=== PATIENT | male | born 1980 | race Caucasian/White ===

== ENCOUNTER 2019-06-19 12:09 | Inpatient (IN) | payer OTHER ==
[~2019-06-19] VITALS: Ht 165.1 cm; Wt 83.4 kg
[2019-06-19] MEDS ORDERED: MORPHINE 2 MG/ML 1ML VIAL (J2270) IV ONE ×2 (12:45→13:15)
[2019-06-19] MEDS ORDERED: ONDANSETRON 4MG/2ML VIAL (J2405) IV ONE (12:45)
[2019-06-19] MEDS ORDERED: NS 1,000 ML IV ONE ×2 (12:45→14:30)
[2019-06-19] MEDS ORDERED: KETOROLAC 30 MG/ML VIAL (J1885) IV ONE (12:45)
[2019-06-19 12:54] LABS: BASO % 0.2 % (0.0-1.0); EOS # 0.1 10^3/uL (0.0-0.5); EOS % 0.7 % (0.0-3.0); HEMATOCRIT 39.3 % (42.0-52.0); HEMOGLOBIN 13.7 g/dl (13.5-17.5); LYMPH # 0.9 10^3/uL (1.5-5.0); LYMPH % 8.1 % (24.0-44.0); MEAN CORPUSCULAR HEMOGLOBIN 29.6 pg (27.0-33.0); MEAN CORPUSCULAR HGB CONC 34.9 g/dl (32.0-36.5); MEAN CORPUSCULAR VOLUME 84.9 fl (80.0-96.0); MONO # 0.8 10^3/uL (0.0-0.8); MONO % 7.8 % (0.0-5.0); NEUTROPHILS # 8.9 10^3/uL (1.5-8.5); NEUTROPHILS % 82.7 % (36.0-66.0); PLATELET COUNT, AUTOMATED 188 10^3/uL (150-450); RED BLOOD COUNT 4.63 10^6/uL (4.30-6.10); WHITE BLOOD COUNT 10.7 10^3/uL (4.0-10.0)
[2019-06-19 13:23] LABS: INFLUENZA A AMPLIFICATION NEGATIVE (NEGATIVE); INFLUENZA B AMPLIFICATION NEGATIVE (NEGATIVE)
[2019-06-19 13:24] LABS: ALBUMIN 4.2 GM/DL (3.2-5.2); ALT/SGPT 28 U/L (12-78); AMYLASE 538 U/L (25-115); BILIRUBIN,DIRECT 0.1 MG/DL (0.0-0.2); BILIRUBIN,TOTAL 0.7 MG/DL (0.2-1.0); BLOOD UREA NITROGEN 16 MG/DL (7-18); CALCIUM LEVEL 9.2 MG/DL (8.5-10.1); CARBON DIOXIDE LEVEL 23 MEQ/L (21-32); CHLORIDE LEVEL 104 MEQ/L (98-107); CREATININE FOR GFR 0.84 MG/DL (0.70-1.30); GLOMERULAR FILTRATION RATE > 60.0 (>60); GLUCOSE, FASTING 105 MG/DL (70-100); LIPASE 9893 U/L (73-393); SODIUM LEVEL 136 MEQ/L (136-145); TOTAL PROTEIN 7.1 GM/DL (6.4-8.2)
[2019-06-19] MEDS ORDERED: fentaNYL 100 MCG/2 ML INJECTION (J3010) IV ONE (13:45)
[2019-06-19] MEDS ORDERED: MORPHINE 4 MG/ML 1ML VIAL/SYRINGE (J2270) IV ONE (14:15)
[2019-06-19] MEDS ORDERED: ISOVUE-370 76% 100ML VIAL (Q9967) As Ordered ONE (14:17)
--- NOTE | 2019-06-19 14:48 | REP ---
Clinical: Acute left upper quadrant pain. Pancreatitis. Technique: Axial contrast enhanced images from the lung bases to the pubic symphysis using 100 ml Isovue 370 intravenous contrast material with coronal and sagittal re-formations. Comparison: None. Findings: Peripancreatic inflammatory changes and peripancreatic/mesenteric adenopathy along with the inflammatory changes surrounding the crossing duodenum is compatible with acute pancreatitis and secondary duodenitis. No significant ascites, drainable collection or abscess. Liver, spleen, gallbladder, bilateral adrenal glands and kidneys are normal. No evidence for bowel obstruction. Scattered colonic diverticula noted without acute diverticulitis. Pelvis demonstrates normal bladder and age appropriate prostate/seminal vesicles. Small fat containing left inguinal hernia noted. Trace pelvic fluid consistent with the above pancreatitis. Abdominal aorta and vasculature appears normal. Musculoskeletal structures are intact. Lung bases are clear. Impression: Acute pancreatitis and possible secondary duodenitis. No drainable collection/abscess. No bowel obstruction. No free air. Electronically Signed by River Davalos MD 06/19/2019 02:39 P
[2019-06-19] MEDS ORDERED: NORCO, ANEXSIA 5/325MG TABLET (HYDROcodone/ACETAMINOPHEN) PO ONE (15:15)
[2019-06-19] MEDS ORDERED: IBUP200C28 PO (15:30)
[2019-06-19] MEDS ORDERED: ACET-897 PO (15:30)
[2019-06-19 15:34] LABS: CHOLESTEROL LEVEL 183 MG/DL (<200); CHOLESTEROL RISK RATIO 1.848 (<5); HDL CHOLESTEROL 99 MG/DL (>40); LDL CHOLESTEROL 54 MG/DL (<100); NON-HDL-C 84 MG/DL; TRIGLYCERIDES LEVEL 148 MG/DL (<150)
[2019-06-19 15:35] LABS: ETHYL ALCOHOL (ETHANOL) < 0.003 % (0.000-0.010)
[2019-06-19] MEDS ORDERED: ONDANSETRON 4MG/2ML VIAL (J2405) IV PRN (16:00)
--- NOTE | 2019-06-19 16:05 | HPEPDOC ---
General Date of Admission Jun 19, 2019 at 15:43 Date of Service: Jun 19, 2019 Chief Complaint The patient is a 38-year-old male admitted with a reason for visit of Acute Pancreatitis. Source: Patient, Family Exam Limitations: No limitations Timing/Duration: Other (since last night) Severity: Severe Associated Symptoms: Nausea History of Present Illness This is 38 years old white male who recently moved to the area with past medical history of pancreatitis 2 this year developed sudden abdominal pain which is sharp, stabbing in nature, located right upper quadrant, nonradiating, as sociated with nausea, no association with food or position, not relieved with any medication exacerbated by eating since last night. Patient offers no other complaints. Denies a history of alcohol abuse. Gallstones are diabetes mellitus Home Medications Scheduled PRN Acetaminophen (Tylenol Extra Strength) 500 Mg Tablet, 1,000 MG PO Q8H PRN for PAIN / FEVER, (Reported) Ibuprofen (Ibuprofen) 200 Mg Capsule, 1,000 MG PO Q8H PRN for PAIN, (Reported) Allergies Coded Allergies: Penicillins (Verified Allergy, Unknown, swelling, 06/19/19) Past Medical History Medical History Pancreatitis 2 Surgical History Left ankle surgery and vasectomy Family History Significant Family History: No pertinent family hx Social History * Smoker: Denies Alcohol: Denies Drugs: denies A-FIB/CHADSVASC A-FIB History Current/History of A-Fib/PAF?: No Review of Systems Constitutional: Denies: Chills, Fever, Malaise, Night Sweats, Weakness, F atigue, Weight Loss, Lethargy, Other Eyes: Denies: Pain, Vision change, Conjunctivae inflammation, Eyelid inflammation, Redness, Other ENT: Denies: Head Aches, Ear Pain, Dysphagia, Sinus Congestion, Post Nasal Drip, Sore Throat, Epistaxis, Other Symptoms Skin: Denies: Rash, Lesions, Jaundice, Bruising, Itching, Dry, Breakdown, Nail Changes, Other Cardiovascular: Denies: Chest Pain, Palpitations, Orthopnea, Paroxysmal Noc. Dyspnea, Edema, Lt Headedness, Other Symptoms Gastrointestinal: Reports: Nausea Genitourinary: Denies: Dysuria, Frequency, Incontinence, Hematuria, Retention, Other Symptoms Hematologic: Denies: Bruising, Bleeding Excessively, Petecchia, Purpura, Enlarged Lymph Nodes, Other Hematologic Endocrine: Denies: Polydipsia, Polyphagia, Polyuria, Heat Intolerance, Cold Intolerance, Other Endocrine Sx Musculoskeletal: Denies: Neck Pain, Back Pain, Shoulder Pain, Arm Pain, Hand Pain, Leg Pain, Foot Pain, Joint Pain, Muscle Pain, Spasms, Other Symptoms Neurological: Denies: Weakness, Numbness, Incoordination, Change in speech, Confusion, Seizures, Other Symptoms Psych: Denies: Mood Normal, Anxiety, Depression, Memory Issues, Thoughts of Self Harm, Anger, Thoughts of Harming Other, Other Psych Physical Examination General Exam: Positive: Alert, Cooperative Eye Exam: Positive: PERRLA, Conjunctiva & lids normal ENT Exam: Positive: Atraumatic Neck Exam: Positive: Supple Chest Exam: Positive: Clear to auscultation, Normal air movement Heart Exam: Positive: Rate Normal, Normal S1, Normal S2 Abdomen Exam: Positive: BS Hypoactive, Soft, Tenderness (. Positive tenderness all over the abdomen but mostly on the right upper quadrant on palpation) Extremity Exam: Positive: Normal pulses Skin Exam: Positive: Nl turgor and temperature Neuro Exam: Positive: Strength at 5/5 X4 ext, Sensation Intact, Cranial Nerves 3-12 NL Psych Exam: Positive: Mood NL, Oriented x 3 Vital Signs Vital Signs Date Time Temp Pulse Resp B/P (MAP) Pulse Ox O2 Delivery O2 Flow Rate FiO2 06/19/19 15:14 20 Room Air 06/19/19 14:13 97.8 43 153/70 (97) 100 Laboratory Data Labs 24H Laboratory Tests 2 06/19/19 12:40: Immature Granulocyte % (Auto) 0.5, Neutrophils (%) (Auto) 82.7H, Lymphocytes (%) (Auto) 8.1L, Monocytes (%) (Auto) 7.8H, Eosinophils (%) (Auto) 0.7, Basophils (%) (Auto) 0.2, Neutrophils # (Auto) 8.9H, Lymphocytes # (Auto) 0.9L, Monocytes # (Auto) 0.8, Eosinophils # (Auto) 0.1, Basophils # (Auto) 0.0, Nucleated Red Blood Cells % (auto) 0.0 06/19/19 12:41: Anion Gap 9, Glomerular Filtration Rate > 60.0, Calcium Level 9.2, Total Bilirubin 0.7, Direct Bilirubin 0.1, Aspartate Amino Transf (AST/SGOT) 32, Alanine Aminotransferase (ALT/SGPT) 28, Alkaline Phosphatase 69, Total Protein 7.1, Albumin 4.2, Albumin/Globulin Ratio 1.45, Triglycerides Level 148, Total Cholesterol 183, LDL Cholesterol 54, Non-HDL Cholesterol (LDL + VLDL) 84, Total HDL Cholesterol 99, Cholesterol/HDL Ratio 1.848, Amylase Level 538H, Lipase 9893H, Ethyl Alcohol Level < 0.003 06/19/19 12:44: Influenza Type A (RT-PCR) NEGATIVE, Influenza Type B (RT-PCR) NEGATIVE CBC/BMP Laboratory Tests 06/19/19 12:40 06/19/19 12:41 Problems (1) Acute pancreatitis Problem Text: 38 years old white male with past medical history of pancreatitis 2 in the last 6 months, came back again with chief complaints of abdominal pain since last night. His heart rate is 43, respiratory rate of 20, blood pressure 1 5370, temperature 97.8, CT abdomen and pelvis consistent with acute pancreatitis and duodenitis. WBC count 10.7, hemoglobin 13.7, platelets 188. Electrolytes are normal with BUN 16, creatinine 0.84, lipase is 9893. Patient already received morphine 4 mg IV, fentanyl 50 g IV, Toradol 30 mg IV in ED with mild relief in his pain. He still complains of his abdominal pain as 11/10. [facility] for 24 hours IV fluids normal saline 150 mL per hour Protonix 40 mg IV every 12 hours Morphine sulfate 4 mg IV every 4 hours when necessary Zofran 4 mg IV every 4 hours when necessary Nothing by mouth except sips for bowel rest Activity as tolerated DVT prophylaxis with antithrombotic stockings Will repeat CBC, CMP, lipase in a.m. Also, will order abdominal sonogram in a.m. looking for possible gallstones, even though CAT scan did not show any gallbladder abnormality or gallstones. (2) Duodenitis Status: Acute Problem Text: Possible acute duodenitis as per CT of the abdomen, pelvis Start Protonix 40 mg IV every 12 hours Nothing by mouth the present time (3) Sinus bradycardia Status: Acute Problem Text: Patient developed sinus bradycardia with heart rate in 40s after he received multiple IV meds for pain control,. , Most likely secondary to IV, fentanyl we will avoid giving him IV fentanyl and monitor his heart rate for 24 hours Plan / VTE VTE Prophylaxis Ordered?: Yes MICHELLE MENDOZA MD Jun 19, 2019 16:05
[2019-06-19 17:56] VITALS: BP 140/66
[2019-06-19] MEDS: NS 1,000 ML IV SCH (18:20)
[2019-06-19] MEDS: MORPHINE 4 MG/ML 1ML VIAL/SYRINGE (J2270) IV PRN ×2 (18:20→22:26)
[2019-06-19] MEDS: ACETAMINOPHEN TAB 650MG DOSE (2X325MG) PO PRN (18:42)
[2019-06-19] MEDS: KETOROLAC 30 MG/ML VIAL (J1885) IV PRN (18:42)
[2019-06-19] MEDS: PANTOPRAZOLE 40MG INJ (PROTONIX) (C9113) IV SCH (18:42)
[2019-06-19 18:57] VITALS: BP 133/71
[2019-06-19 22:00] VITALS: BP 109/68
[2019-06-19 23:55] VITALS: BP 142/72
[2019-06-20] MEDS ORDERED: ACETAMINOPHEN *IV* 1,000 MG in IV 1 EA IV ONE (00:30)
--- NOTE | 2019-06-20 00:32 | REPVR ---
PROCEDURE INFORMATION: Exam: US Abdomen Limited, Right Upper Quadrant Exam date and time: 06/19/2019 11:40 PM Age: 38 years old Clinical indication: Abnormal findings; Abnormal radiologic finding of the abdomen; Radiologic exam and body structure: CT abd pelvis - pancreatitis; Additional info: R/O gall stones TECHNIQUE: Imaging protocol: Real-time ultrasound of the abdomen with image documentation. Examination was focused on the right upper quadrant. COMPARISON: CT ABD/PEL W/IV CONTRAST ONLY 2019-06-19 14:22 FINDINGS: Liver: Normal. No masses. Gallbladder: 9.8 cm gallbladder without stones with normal wall thickness measuring 1 mm. On several of the images, the gallbladder appears artifactually thickened. Common bile duct: Normal common biliary duct measuring 5 mm. Pancreas: Swollen pancreas with ill-defined borders compatible with acute pancreatitis. Right kidney: Normal. No mass. No hydronephrosis. Intraperitoneal space: Trace fluid abutting the liver. IMPRESSION: 1. No evidence for acute cholecystitis. 2. Swollen pancreas with ill-defined borders compatible with acute pancreatitis. 3. Trace fluid abutting the liver. Electronically signed by: Parish Bennett On 06/20/2019 00:31:23 AM
[2019-06-20] MEDS: KETOROLAC 30 MG/ML VIAL (J1885) IV PRN ×4 (00:47→21:03)
[2019-06-20] MEDS: NS 1,000 ML IV SCH ×4 (00:48→21:03)
[2019-06-20] MEDS: MORPHINE 4 MG/ML 1ML VIAL/SYRINGE (J2270) IV PRN ×4 (04:56→22:20)
[2019-06-20] MEDS: PANTOPRAZOLE 40MG INJ (PROTONIX) (C9113) IV SCH ×2 (05:05→17:25)
[2019-06-20 06:00] VITALS: BP 131/66
[2019-06-20 06:57] LABS: HEMATOCRIT 34.9 % (42.0-52.0); HEMOGLOBIN 11.8 g/dl (13.5-17.5); MEAN CORPUSCULAR HEMOGLOBIN 29.3 pg (27.0-33.0); MEAN CORPUSCULAR HGB CONC 33.8 g/dl (32.0-36.5); MEAN CORPUSCULAR VOLUME 86.6 fl (80.0-96.0); PLATELET COUNT, AUTOMATED 154 10^3/uL (150-450); RED BLOOD COUNT 4.03 10^6/uL (4.30-6.10); WHITE BLOOD COUNT 11.9 10^3/uL (4.0-10.0)
[2019-06-20 07:21] LABS: ALBUMIN 3.2 GM/DL (3.2-5.2); ALT/SGPT 23 U/L (12-78); BILIRUBIN,TOTAL 0.7 MG/DL (0.2-1.0); BLOOD UREA NITROGEN 7 MG/DL (7-18); CALCIUM LEVEL 8.3 MG/DL (8.5-10.1); CARBON DIOXIDE LEVEL 22 MEQ/L (21-32); CHLORIDE LEVEL 109 MEQ/L (98-107); CREATININE FOR GFR 0.73 MG/DL (0.70-1.30); GLOMERULAR FILTRATION RATE > 60.0 (>60); GLUCOSE, FASTING 99 MG/DL (70-100); LIPASE 3171 U/L (73-393); MAGNESIUM LEVEL 1.7 MG/DL (1.8-2.4); SODIUM LEVEL 139 MEQ/L (136-145); TOTAL PROTEIN 6.3 GM/DL (6.4-8.2)
[2019-06-20] MEDS ORDERED: MAG SULF 1GM/100ML (MAG RUN) 1 GM in IV 1 EA IV ONE (08:00)
--- NOTE | 2019-06-20 11:02 | IPNPDOC ---
Subjective Date Seen The patient was seen on 06/20/19. Subjective Chief Complaint/HPI Patient's pain is slightly decreased, but he is feels much better since yesterday. Still complaining of pain at the left upper quadrant General: Denies: ROS Unobtainable, Chills, Night Sweats, Fatigue, Malaise, Normal Appetite, Other Symptoms Pulmonary: Denies: Dyspnea, Cough, Pleuritic Chest Pain, Other Symptoms Cardiovascular: Denies: Chest Pain, Palpitations, Orthopnea, Paroxysmal Noc. Dyspnea, Edema, Lt Headedness, Other Symptoms Gastrointestinal: Denies: Nausea, Vomiting, Abdominal Pain, Diarrhea, Constipation, Melena, Hematochezia, Other Symptoms Musculoskeletal: Denies: Neck Pain, Back Pain, Shoulder Pain, Arm Pain, Hand Pain, Leg Pain, Foot Pain, Joint Pain, Muscle Pain, Spasms, Other Symptoms Neurological: Denies: Weakness, Numbness, Incoordination, Change in speech, Confusion, Seizures, Other Symptoms Objective Physical Examination Neck Exam: Positive: Supple Chest Exam: Positive: Clear to auscultation, Normal air movement Heart Exam: Positive: Rate Normal, Normal S1, Normal S2 Abdomen Exam: Positive: BS Hypoactive, Soft, Tenderness (. Positive tenderness all over the abdomen but mostly on the right upper quadrant on palpation) Extremity Exam: Positive: Normal pulses Skin Exam: Positive: Nl turgor and temperature Assessment /Plan Problems (1) Acute pancreatitis Status: Acute Problem Text: Patient is feeling slightly better today. Tenderness is decreased on examination Continue IV fluids as per orders Patient's lipase is significantly decreased to 3171 will start clear liquid diet and slowly progress today as tolerated Zofran for nausea, vomiting (2) Duodenitis Status: Acute Problem Text: Continue Protonix as per orders A.m. level work (3) Sinus bradycardia Status: Resolved Problem Text: Sinus bradycardia has resolved DC radiation monitor Plan/VTE VTE Prophylaxis Ordered?: Yes VS, I&O, 24H, Fishbone Vital Signs/I&O Vital Signs Date Time Temp Pulse Resp B/P (MAP) Pulse Ox O2 Delivery O2 Flow Rate FiO2 06/20/19 10:46 19 06/20/19 10:36 60 140/77 100 Room Air 06/20/19 06:00 97.9 I&O- Last 24 Hours up to 6 AM 06/20/19 06:00 Intake Total 3000 ml Output Total 950 ml Balance 2050 ml Laboratory Data 24H LABS Laboratory Tests 2 06/19/19 12:40: Immature Granulocyte % (Auto) 0.5, Neutrophils (%) (Auto) 82.7H, Lymphocytes (%) (Auto) 8.1L, Monocytes (%) (Auto) 7.8H, Eosinophils (%) (Auto) 0.7, Basophils (%) (Auto) 0.2, Neutrophils # (Auto) 8.9H, Lymphocytes # (Auto) 0.9L, Monocytes # (Auto) 0.8, Eosinophils # (Auto) 0.1, Basophils # (Auto) 0.0, Nucleated Red Blood Cells % (auto) 0.0 06/19/19 12:41: Anion Gap 9, Glomerular Filtration Rate > 60.0, Calcium Level 9.2, Total Bilirubin 0.7, Direct Bilirubin 0.1, Aspartate Amino Transf (AST/SGOT) 32, Alanine Aminotransferase (ALT/SGPT) 28, Alkaline Phosphatase 69, Total Protein 7.1, Albumin 4.2, Albumin/Globulin Ratio 1.45, Triglycerides Level 148, Total Cholesterol 183, LDL Cholesterol 54, Non-HDL Cholesterol (LDL + VLDL) 84, Total HDL Cholesterol 99, Cholesterol/HDL Ratio 1.848, Amylase Level 538H, Lipase 9893H, Ethyl Alcohol Level < 0.003 06/19/19 12:44: Influenza Type A (RT-PCR) NEGATIVE, Influenza Type B (RT-PCR) NEGATIVE 06/20/19 06:10: Nucleated Red Blood Cells % (auto) 0.0, Anion Gap 8, Glomerular Filtration Rate > 60.0, Calcium Level 8.3L, Total Bilirubin 0.7, Aspartate Amino Transf (AST/SGOT) 12, Alanine Aminotransferase (ALT/SGPT) 23, Alkaline Phosphatase 50, Total Protein 6.3L, Albumin 3.2#, Albumin/Globulin Ratio 1.03, Lipase 3171H, Magnesium Level 1.7L CBC/BMP Laboratory Tests 06/19/19 12:40 06/19/19 12:41 06/20/19 06:10 MICHELLE MENDOZA MD Jun 20, 2019 11:02
[2019-06-20 14:00] VITALS: BP 114/72
[2019-06-20 22:00] VITALS: BP 123/66
[2019-06-21] MEDS: NS 1,000 ML IV SCH ×4 (04:02→23:20)
[2019-06-21] MEDS: PANTOPRAZOLE 40MG INJ (PROTONIX) (C9113) IV SCH ×2 (05:59→17:03)
[2019-06-21 06:00] VITALS: BP 126/69
[2019-06-21] MEDS: MORPHINE 4 MG/ML 1ML VIAL/SYRINGE (J2270) IV PRN ×3 (06:00→22:39)
[2019-06-21 06:16] LABS: BASO % 0.2 % (0.0-1.0); EOS # 0.2 10^3/uL (0.0-0.5); EOS % 1.8 % (0.0-3.0); HEMATOCRIT 33.2 % (42.0-52.0); HEMOGLOBIN 11.2 g/dl (13.5-17.5); LYMPH # 1.3 10^3/uL (1.5-5.0); LYMPH % 15.2 % (24.0-44.0); MEAN CORPUSCULAR HEMOGLOBIN 29.3 pg (27.0-33.0); MEAN CORPUSCULAR HGB CONC 33.7 g/dl (32.0-36.5); MEAN CORPUSCULAR VOLUME 86.9 fl (80.0-96.0); MONO # 0.9 10^3/uL (0.0-0.8); MONO % 10.7 % (0.0-5.0); NEUTROPHILS % 71.7 % (36.0-66.0); PLATELET COUNT, AUTOMATED 154 10^3/uL (150-450); RED BLOOD COUNT 3.82 10^6/uL (4.30-6.10); WHITE BLOOD COUNT 8.4 10^3/uL (4.0-10.0)
[2019-06-21 06:35] LABS: ALBUMIN 2.8 GM/DL (3.2-5.2); ALT/SGPT 15 U/L (12-78); BILIRUBIN,TOTAL 0.6 MG/DL (0.2-1.0); BLOOD UREA NITROGEN 4 MG/DL (7-18); CALCIUM LEVEL 8.5 MG/DL (8.5-10.1); CARBON DIOXIDE LEVEL 28 MEQ/L (21-32); CHLORIDE LEVEL 109 MEQ/L (98-107); CREATININE FOR GFR 0.74 MG/DL (0.70-1.30); GLOMERULAR FILTRATION RATE > 60.0 (>60); GLUCOSE, FASTING 101 MG/DL (70-100); LIPASE 751 U/L (73-393); POTASSIUM SERUM 3.7 MEQ/L (3.5-5.1); SODIUM LEVEL 140 MEQ/L (136-145); TOTAL PROTEIN 6.2 GM/DL (6.4-8.2)
--- NOTE | 2019-06-21 07:44 | ECGEPIP ---
[facility] Test Date: 2019-06-19 Pat Name: YULIANA MICHAUD Department: Room: [place] [address] Gender: Male Drafter Electronic: [employer] [place] : 1980 Requested By: Sindi Medel [facility] Order Number: [id number] Reading MD: Juan Quick Measurements Intervals [place] Rate: 43 P: 59 WV: 147 QRS: 46 QRSD: 84 T: 23 QT: 473 QTc: 401 Interpretive Statements sinus bradycardia Nonspecific ST/T wave abnormalities No prior tracing for comparison Clinical correlation advised Electronically Signed on 06-21-2019 7:43:57 EST by Juan Quick
--- NOTE | 2019-06-21 10:27 | IPNPDOC ---
Subjective Date Seen The patient was seen on 06/21/19. Subjective Chief Complaint/HPI Feeling better today, minimal abdominal pain/nausea, tolerating full liquids. General: Reports: Normal Appetite; Denies: Chills, Night Sweats, Fatigue, Malaise Constitutional: Denies: Chills, Fever, Night Sweats Eyes: Denies: Pain, Vision change ENT: Denies: Head Aches, Ear Pain, Dysphagia Skin: Denies: Rash, Lesions, Breakdown Pulmonary: Denies: Dyspnea, Cough Cardiovascular: Denies: Chest Pain, Palpitations, Orthopnea, Paroxysmal Noc. Dyspnea, Lt Headedness Gastrointestinal: Denies: Nausea, Vomiting, Abdominal Pain, Diarrhea, Constipation Genitourinary: Denies: Dysuria, Frequency, Incontinence, Retention Hematologic: Denies: Bruising, Bleeding Excessively Musculoskeletal: Denies: Neck Pain, Back Pain, Joint Pain, Muscle Pain, Spasms Neurological: Denies: Weakness, Numbness, Change in speech, Confusion Psych: Reports: Mood Normal; Denies: Depression, Memory Issues Objective Physical Examination General Exam: Positive: Alert, No Acute Distress Eye Exam: Positive: PERRLA, Conjunctiva & lids normal, EOMI; Negative: Sclera icteric ENT Exam: Positive: Atraumatic, Mucous membr. moist/pink, Pharynx Normal Neck Exam: Positive: Supple Chest Exam: Positive: Clear to auscultation, Normal air movement Heart Exam: Positive: Rate Normal, Normal S1, Normal S2 Telemetry: Positive: No significant arrhythmia Abdomen Exam: Positive: BS Hypoactive, Soft, Tenderness (mild tenderness b/l LQ) Male Exam: Positive: Normal Genital Exam Extremity Exam: Positive: Normal pulses Skin Exam: Positive: Nl turgor and temperature Neuro Exam: Positive: Normal Gait, Normal Speech, Cranial Nerves 3-12 NL, Reflexes 2+ Psych Exam: Positive: Mental status NL, Mood NL, Oriented x 3 Assessment /Plan Assessment 1. acute pancreatitis - Started on clear liquids yesterday evening, tolerating. - will advance diet later today. - continue IVF for now, repeat lipase 751. - zofran prn for nausea. - abdominal US negative with pancreatic inflammation, negative for cholecystitis. 2. duodenitis. - continue protonix. 3. sinus bradycardia - resolved, off telemetry. Plan/VTE VTE Prophylaxis Ordered?: Yes VS, I&O, 24H, Fishbone Vital Signs/I&O Vital Signs Date Time Temp Pulse Resp B/P (MAP) Pulse Ox O2 Delivery O2 Flow Rate FiO2 06/21/19 06:10 14 06/21/19 06:00 97.8 92 126/69 (88) 94 06/20/19 14:00 Room Air I&O- Last 24 Hours up to 6 AM 06/21/19 06:00 Intake Total 5120 ml Output Total 4825 ml Balance 295 ml Laboratory Data 24H LABS Laboratory Tests 2 06/21/19 05:47: Immature Granulocyte % (Auto) 0.4, Neutrophils (%) (Auto) 71.7H, Lymphocytes (%) (Auto) 15.2L, Monocytes (%) (Auto) 10.7H, Eosinophils (%) (Auto) 1.8, Basophils (%) (Auto) 0.2, Neutrophils # (Auto) 6.0, Lymphocytes # (Auto) 1.3L, Monocytes # (Auto) 0.9H, Eosinophils # (Auto) 0.2, Basophils # (Auto) 0.0, Nucleated Red Blood Cells % (auto) 0.0, Anion Gap 3L, Glomerular Filtration Rate > 60.0, Calcium Level 8.5, Total Bilirubin 0.6, Aspartate Amino Transf (AST/SGOT) 12, Alanine Aminotransferase (ALT/SGPT) 15, Alkaline Phosphatase 46, Total Protein 6.2L, Albumin 2.8L, Albumin/Globulin Ratio 0.82L, Lipase 751H CBC/BMP Laboratory Tests 06/21/19 05:47 SALVADOR MCFARLAND MD Jun 21, 2019 10:27
[2019-06-21] MEDS: KETOROLAC 30 MG/ML VIAL (J1885) IV PRN ×2 (10:53→18:54)
[2019-06-21 14:00] VITALS: BP 128/77
[2019-06-21 22:00] VITALS: BP 125/73
[2019-06-22] MEDS: NS 1,000 ML IV SCH ×2 (05:15→12:42)
[2019-06-22] MEDS: PANTOPRAZOLE 40MG INJ (PROTONIX) (C9113) IV SCH (05:15)
[2019-06-22] MEDS: KETOROLAC 30 MG/ML VIAL (J1885) IV PRN ×2 (05:15→12:42)
[2019-06-22 06:00] VITALS: BP 122/71
[2019-06-22 07:12] LABS: HEMATOCRIT 30.9 % (42.0-52.0); HEMOGLOBIN 10.5 g/dl (13.5-17.5); MEAN CORPUSCULAR HEMOGLOBIN 29.8 pg (27.0-33.0); MEAN CORPUSCULAR VOLUME 87.8 fl (80.0-96.0); PLATELET COUNT, AUTOMATED 144 10^3/uL (150-450); RED BLOOD COUNT 3.52 10^6/uL (4.30-6.10); WHITE BLOOD COUNT 5.2 10^3/uL (4.0-10.0)
[2019-06-22 07:43] LABS: BLOOD UREA NITROGEN 7 MG/DL (7-18); CALCIUM LEVEL 8.4 MG/DL (8.5-10.1); CARBON DIOXIDE LEVEL 27 MEQ/L (21-32); CHLORIDE LEVEL 110 MEQ/L (98-107); CREATININE FOR GFR 0.77 MG/DL (0.70-1.30); GLOMERULAR FILTRATION RATE > 60.0 (>60); GLUCOSE, FASTING 102 MG/DL (70-100); LIPASE 592 U/L (73-393); POTASSIUM SERUM 3.7 MEQ/L (3.5-5.1); SODIUM LEVEL 142 MEQ/L (136-145)
[2019-06-22] MEDS: MORPHINE 4 MG/ML 1ML VIAL/SYRINGE (J2270) IV PRN (09:21)
--- NOTE | 2019-06-22 11:26 | IPNPDOC ---
Subjective Date Seen The patient was seen on 06/22/19. Subjective Chief Complaint/HPI seen and examined at bedside, no specific complaints, tolerating diet. General: Reports: Normal Appetite; Denies: Chills, Night Sweats, Fatigue, Malaise Constitutional: Denies: Chills, Fever, Night Sweats Eyes: Denies: Pain, Vision change ENT: Denies: Head Aches, Ear Pain, Dysphagia Skin: Denies: Rash, Lesions, Breakdown Pulmonary: Denies: Dyspnea, Cough Cardiovascular: Denies: Chest Pain, Palpitations, Orthopnea, Paroxysmal Noc. Dyspnea, Lt Headedness Gastrointestinal: Denies: Nausea, Vomiting, Abdominal Pain, Diarrhea, Constipation Genitourinary: Denies: Dysuria, Frequency, Incontinence, Retention Hematologic: Denies: Bruising, Bleeding Excessively Musculoskeletal: Denies: Neck Pain, Back Pain, Joint Pain, Muscle Pain, Spasms Neurological: Denies: Weakness, Numbness, Change in speech, Confusion Psych: Reports: Mood Normal; Denies: Depression, Memory Issues Objective Physical Examination General Exam: Positive: Alert, No Acute Distress Eye Exam: Positive: PERRLA, Conjunctiva & lids normal, EOMI; Negative: Sclera icteric ENT Exam: Positive: Atraumatic, Mucous membr. moist/pink, Pharynx Normal Neck Exam: Positive: Supple Chest Exam: Positive: Clear to auscultation, Normal air movement Heart Exam: Positive: Rate Normal, Normal S1, Normal S2 Telemetry: Positive: No significant arrhythmia Abdomen Exam: Positive: BS Hypoactive, Soft, Tenderness (mild tenderness b/l LQ) Male Exam: Positive: Normal Genital Exam Extremity Exam: Positive: Normal pulses Skin Exam: Positive: Nl turgor and temperature Neuro Exam: Positive: Normal Gait, Normal Speech, Cranial Nerves 3-12 NL, Reflexes 2+ Psych Exam: Positive: Mental status NL, Mood NL, Oriented x 3 Assessment /Plan Assessment 1. acute pancreatitis - advance diet today. - zofran prn for nausea. - abdominal US negative with pancreatic inflammation, negative for cholecystitis. 2. duodenitis. - continue protonix. 3. sinus bradycardia - resolved, off telemetry. Plan/VTE VTE Prophylaxis Ordered?: Yes VS, I&O, 24H, Fishbone Vital Signs/I&O Vital Signs Date Time Temp Pulse Resp B/P (MAP) Pulse Ox O2 Delivery O2 Flow Rate FiO2 06/22/19 09:31 18 06/22/19 09:21 Room Air 06/22/19 06:00 98.0 87 122/71 (88) 96 I&O- Last 24 Hours up to 6 AM 06/22/19 06:00 Intake Total 5186 ml Output Total 1200 ml Balance 3986 ml Laboratory Data 24H LABS Laboratory Tests 2 06/22/19 06:45: Nucleated Red Blood Cells % (auto) 0.0, Anion Gap 5L, Glomerular Filtration Rate > 60.0, Calcium Level 8.4L, Lipase 592H CBC/BMP Laboratory Tests 06/22/19 06:45 SALVADOR MCFARLAND MD Jun 22, 2019 11:26
[2019-06-22 14:00] VITALS: BP 107/62
--- NOTE | 2019-06-22 19:11 | CR ---
DATE OF CONSULTATION: 06/22/2019 STATUS: Inpatient. REQUESTING PHYSICIAN: Hospitalist service. REASON FOR CONSULTATION: Recurrent pancreatitis. A 38-year-old male with a past medical history significant his third episode of acute pancreatitis with the initial episode in December 2018, second episode in January 2019, and this is his third episode of severe abdominal pain, nausea, and vomiting. He presented to the emergency room, where he had a CT scan performed, confirming the cause for his elevated amylase, lipase, and symptoms to be pancreatitis. There was also some duodenal compression from the severity of his pancreatitis. There were no masses seen. There was no cyst seen. No drainable abscess. He had an ultrasound of right upper quadrant performed and did not reveal any gallstones, nor were there any gallstones seen on his CT scan. He has recently moved to this area. His previous episodes of pancreatitis were in [place]. The patient denies any alcohol use. His triglycerides are normal, and he has never experienced any steering wheel trauma to his chest or any other trauma to his upper abdomen. SIGNIFICANT MEDICATIONS: He is on as-needed ibuprofen and as-needed acetaminophen. ALLERGIES: PENICILLIN. PAST MEDICAL HISTORY: Pancreatitis, episode #3, previously December 2018, March 2019. SURGICAL HISTORY: Negative for intra-abdominal surgery. FAMILY HISTORY: Negative for pancreatitis or pancreatic malignancy. SOCIAL HISTORY: Negative for tobacco. Negative for alcohol. Negative for illicit drugs. HOME MEDICATIONS: As-needed Tylenol, as-needed ibuprofen. REVIEW OF SYSTEMS: GENERAL: Negative for night sweats, fevers, or chills. Positive for some fatigue and weight loss. CARDIAC: Negative for orthopnea, paroxysmal nocturnal dyspnea (PND). PULMONARY: Negative for pleuritic-type chest pain, hemoptysis. GASTROINTESTINAL: As per history of present illness (HPI) . GENITOURINARY: Negative for hematuria, dysuria, or darkening of urine. MUSCULOSKELETAL: Negative for myalgias, arthralgias. NEUROLOGICAL: Negative for focal numbness or weakness. Temperature 97.9, pulse 63, respiratory rate 19, blood pressure 107/62, pulse oximetry 96% on room air. GENERAL: He is awake, alert, and oriented times three in no acute distress, nontoxic in appearance, comfortably in bed. HEAD, EYES, EARS, NOSE AND THROAT: Without abnormality. There is no oral thrush. Negative for lymphadenopathy. NECK: Negative for lymphadenopathy, thyromegaly. CHEST: Clear bilaterally. HEART: Regular rate and rhythm, S1, S2. No murmurs or gallops. ABDOMEN: Soft. Mild to moderate tenderness on deep palpation in the midepigastrium. There is no rebound tenderness. I do hear diminished but present bowel sounds. There are no masses felt and no ascites. EXTREMITIES: Negative for edema. RECTAL: Refused as per patient. IMAGING STUDIES: On 06/19/2019, CT abdomen and pelvis with IV contrast: Impression: 1) Acute pancreatitis and possible secondary duodenitis. 2) No drainable collection or abscess. 3) No bowel obstruction/free air. 4) Peripancreatic inflammatory changes and peripancreatic mesenteric adenopathy along with the inflammatory changes surrounding the crossing duodenum, which is compatible with acute pancreatitis and secondary duodenitis. Liver, spleen, and gallbladder are normal. A small fat-containing left inguinal hernia is noted. Abdominal ultrasound dated 06/19/2019: Impression: 1) No evidence for acute cholecystitis. 2) Swollen pancreas with ill-defined borders compatible with acute pancreatitis. 3) Trace fluid abutting the liver. 4) A 9.8 cm gallbladder without stones with normal wall thickness, measuring 1 mm. 5) The common bile duct measures 5 mm and is normal. IMPRESSION: 1. Recurrent acute pancreatitis times three, 6 months. These episodes appear to be distinct and separate. Previous evaluations unremarkable. Current evaluations show no gallstones on ultrasound nor on CT. His triglyceride levels are normal at 148. He does not drink any alcohol. He is not on any of offending medications. There is no history of any trauma that he remembers at any time. DIFFERENTIAL DIAGNOSES At this point includes: 1. Autoimmune pancreatitis. 2. Pancreas divisum. 3. Microlithiasis 4. Idiopathic RECOMMENDATIONS: 1. MRI/magnetic resonance cholangiopancreatography (MRCP) to delineate the pancreatic ductal anatomy. 2. Check IgG4. 3. If both these tests are negative, then I would recommend he have cholecystectomy for probable microlithiasis. This can be done electively after his current bout of pancreatitis has resolved. 4. At this time, we are awaiting results for further recommendations.
[2019-06-22] MEDS: MORPHINE 2 MG/ML 1ML VIAL (J2270) IV PRN (21:08)
[2019-06-22 22:00] VITALS: BP 125/67
--- NOTE | 2019-06-22 22:11 | REPVR ---
PROCEDURE INFORMATION: Exam: MR Abdomen Without Contrast Exam date and time: 06/22/2019 8:24 PM Age: 38 years old Clinical indication: Condition or disease; Pancreatic condition; Pancreatitis; Biliary; Abdominal tenderness and nausea TECHNIQUE: Imaging protocol: MRCP of the abdomen without contrast. 3D rendering: MIP and/or 3D reconstructed images were created by the technologist. COMPARISON: US Abdomen 06/19/2019 11:30 PM FINDINGS: Liver: Visualized liver unremarkable. No mass. Gallbladder and bile ducts: Unremarkable. No stones. No ductal dilation. Pancreas: Boggy appearance of the pancreatic tail and distal pancreatic body surrounded by inflammation, findings consistent with pancreatitis. Spleen: Visualized spleen unremarkable. No splenomegaly. Adrenals: Unremarkable. No mass. Kidneys and ureters: Kidneys and proximal ureters: Unremarkable. No solid mass. No hydronephrosis. Stomach and bowel: Mild dilatation of the stomach. Gastroparesis to be excluded clinically. Intraperitoneal space: No fluid collection. Arteries: No abdominal aortic aneurysm. Bones/joints: Unremarkable. Soft tissues: Unremarkable. IMPRESSION: 1. Boggy appearance of the pancreatic tail and distal pancreatic body surrounded by inflammation, findings consistent with pancreatitis. 2. Possible gastroparesis as noted above. Electronically signed by: Jagidsh Sherman On 06/22/2019 22:11:21 PM
[2019-06-23 06:00] VITALS: BP 127/70
[2019-06-23] MEDS: MORPHINE 2 MG/ML 1ML VIAL (J2270) IV PRN ×3 (06:11→18:55)
[2019-06-23 06:49] LABS: HEMATOCRIT 30.5 % (42.0-52.0); HEMOGLOBIN 10.3 g/dl (13.5-17.5); MEAN CORPUSCULAR HEMOGLOBIN 29.5 pg (27.0-33.0); MEAN CORPUSCULAR HGB CONC 33.8 g/dl (32.0-36.5); MEAN CORPUSCULAR VOLUME 87.4 fl (80.0-96.0); PLATELET COUNT, AUTOMATED 171 10^3/uL (150-450); RED BLOOD COUNT 3.49 10^6/uL (4.30-6.10); WHITE BLOOD COUNT 4.8 10^3/uL (4.0-10.0)
[2019-06-23 07:13] LABS: BLOOD UREA NITROGEN 8 MG/DL (7-18); CALCIUM LEVEL 8.7 MG/DL (8.5-10.1); CARBON DIOXIDE LEVEL 28 MEQ/L (21-32); CHLORIDE LEVEL 108 MEQ/L (98-107); CREATININE FOR GFR 0.76 MG/DL (0.70-1.30); GLOMERULAR FILTRATION RATE > 60.0 (>60); GLUCOSE, FASTING 100 MG/DL (70-100); LIPASE 412 U/L (73-393); POTASSIUM SERUM 3.9 MEQ/L (3.5-5.1); SODIUM LEVEL 140 MEQ/L (136-145)
[2019-06-23] MEDS: PANTOPRAZOLE 40MG TAB (PROTONIX) PO SCH (08:06)
[2019-06-23] MEDS: ACETAMINOPHEN TAB 650MG DOSE (2X325MG) PO PRN ×2 (08:06→18:55)
--- NOTE | 2019-06-23 12:37 | IPNPDOC ---
Subjective Date Seen The patient was seen on 06/23/19. Subjective Chief Complaint/HPI seen and examined at bedside, no specific complaints today, tolerating diet. General: Reports: Normal Appetite; Denies: Chills, Night Sweats, Fatigue, Malaise Constitutional: Denies: Chills, Fever, Night Sweats Eyes: Denies: Pain, Vision change ENT: Denies: Head Aches, Ear Pain, Dysphagia Skin: Denies: Rash, Lesions, Breakdown Pulmonary: Denies: Dyspnea, Cough Cardiovascular: Denies: Chest Pain, Palpitations, Orthopnea, Paroxysmal Noc. Dyspnea, Lt Headedness Gastrointestinal: Denies: Nausea, Vomiting, Abdominal Pain, Diarrhea, Constipation Genitourinary: Denies: Dysuria, Frequency, Incontinence, Retention Hematologic: Denies: Bruising, Bleeding Excessively Musculoskeletal: Denies: Neck Pain, Back Pain, Joint Pain, Muscle Pain, Spasms Neurological: Denies: Weakness, Numbness, Change in speech, Confusion Psych: Reports: Mood Normal; Denies: Depression, Memory Issues Objective Physical Examination General Exam: Positive: Alert, No Acute Distress Eye Exam: Positive: PERRLA, Conjunctiva & lids normal, EOMI; Negative: Sclera icteric ENT Exam: Positive: Atraumatic, Mucous membr. moist/pink, Pharynx Normal Neck Exam: Positive: Supple Chest Exam: Positive: Clear to auscultation, Normal air movement Heart Exam: Positive: Rate Normal, Normal S1, Normal S2 Telemetry: Positive: No significant arrhythmia Abdomen Exam: Positive: BS Hypoactive, Soft, Tenderness (mild tenderness b/l LQ) Male Exam: Positive: Normal Genital Exam Extremity Exam: Positive: Normal pulses Skin Exam: Positive: Nl turgor and temperature Neuro Exam: Positive: Normal Gait, Normal Speech, Cranial Nerves 3-12 NL, Reflexes 2+ Psych Exam: Positive: Mental status NL, Mood NL, Oriented x 3 Assessment /Plan Assessment 1. acute pancreatitis - on regular diet, tolerating. - zofran prn for nausea. - abdominal US negative with pancreatic inflammation, negative for cholecystitis. - MRCP negative. - seen by GI, consult placed to surgery Dr. Eddy to discuss possible cholecystectomy. 2. duodenitis. - continue protonix. 3. sinus bradycardia - resolved, off telemetry. Plan/VTE VTE Prophylaxis Ordered?: Yes VS, I&O, 24H, Fishbone Vital Signs/I&O Vital Signs Date Time Temp Pulse Resp B/P (MAP) Pulse Ox O2 Delivery O2 Flow Rate FiO2 06/23/19 12:26 18 Room Air 06/23/19 06:21 93 06/23/19 06:00 98.6 50 127/70 (89) I&O- Last 24 Hours up to 6 AM 06/23/19 06:00 Intake Total 1740 ml Output Total 3750 ml Balance -2010 ml Laboratory Data 24H LABS Laboratory Tests 2 06/22/19 17:36: 06/23/19 06:35: Nucleated Red Blood Cells % (auto) 0.0, Anion Gap 4L, Glomerular Filtration Rate > 60.0, Calcium Level 8.7, Lipase 412H CBC/BMP Laboratory Tests 06/23/19 06:35 SALVADOR MCFARLAND MD Jun 23, 2019 12:37
[2019-06-23 14:00] VITALS: BP 123/67
[2019-06-23 23:53] VITALS: BP 117/78
[2019-06-24] MEDS: MORPHINE 2 MG/ML 1ML VIAL (J2270) IV PRN (03:22)
[2019-06-24 06:00] VITALS: BP 120/71
[2019-06-24] MEDS: PANTOPRAZOLE 40MG TAB (PROTONIX) PO SCH (08:26)
[2019-06-24] MEDS ORDERED: PANT40TA3 PO (11:03)
--- NOTE | 2019-06-24 11:10 | DS.PDOC ---
Discharge Summary General Date of Admission Jun 19, 2019 at 15:43 Date of Discharge 06/24/19 Discharge Summary PROCEDURES PERFORMED DURING STAY: [none]. ADMITTING DIAGNOSES: 1. acute recurrent pancreatitis DISCHARGE DIAGNOSES: 1. acute recurrent pancreatitis COMPLICATIONS/CHIEF COMPLAINT: Acute Pancreatitis. HISTORY OF PRESENT ILLNESS: Please refer to for detailed HPI. HOSPITAL COURSE: Patient was admitted and treated for the following conditions: 1. acute pancreatitis - started on IVF, pain control, antiemetics. - US/CT A/P negative for stones/sludge. - slow improvement in symptoms, diet advanced and tolerated. - seen by GI, recommending MRCP which was done and negative. - surgery Dr. Eddy consulted for elective cholecystectomy. - patient choses to follow up with surgery as outpatient and will decide at that point regarding surgery. 2. sinus bradycardia - resolved, no further episodes. DISCHARGE MEDICATIONS: Please see below. ALLERGIES: Please see below. PHYSICAL EXAMINATION ON DISCHARGE: VITAL SIGNS: Please see below. GENERAL: AAO x 3, NAD. HEENT: NCAT, anicteric sclera, PERRLA/EOMI NECK: supple, no JVD, no thyromegaly CARDIOVASCULAR EXAMINATION: NS1S2, regular, no murmurs/rubs RESPIRATORY EXAMINATION: CTA b/l, no wheezing, rales, rhonchi. ABDOMINAL EXAMINATION: NT/ND, positive bowel sounds, no masses EXTREMITIES: no cyanosis, clubbing, edema SKIN: warm, no rashes, NEUROLOGICAL EXAMINATION: AAO x 3, no motor/sensory deficits, PSYCHIATRIC EXAMINATION: calm, cooperative, normal affectis. LABORATORY DATA: Please see below. IMAGING: US abdomen: IMPRESSION: 1. No evidence for acute cholecystitis. 2. Swollen pancreas with ill-defined borders compatible with acute pancreatitis. 3. Trace fluid abutting the liver. CT A/P: Impression: Acute pancreatitis and possible secondary duodenitis. No drainable collection/abscess. No bowel obstruction. No free air. MRCP: IMPRESSION: 1. Boggy appearance of the pancreatic tail and distal pancreatic body surrounded by inflammation, findings consistent with pancreatitis. 2. Possible gastroparesis as noted above. PROGNOSIS: good ACTIVITY: [As tolerated]. DIET: low fat/low cholesterol DISCHARGE PLAN: stable for d/c home DISPOSITION: home DISCHARGE INSTRUCTIONS: 1. Please follow up with surgery Dr. Eddy on discharge ITEMS TO FOLLOWUP ON ON OUTPATIENT: 1. none DISCHARGE CONDITION: [Stable]. TIME SPENT ON DISCHARGE: Greater than [30] minutes. Vital Signs/I&Os Vital Signs Date Time Temp Pulse Resp B/P (MAP) Pulse Ox O2 Delivery O2 Flow Rate FiO2 06/24/19 06:00 98.5 51 17 120/71 (87) 95 Room Air I&O- Last 24 Hours up to 6 AM 06/24/19 06:00 Intake Total 1260 ml Output Total 2400 ml Balance -1140 ml Discharge Medications Scheduled Pantoprazole Sodium (Pantoprazole Sodium) 40 Mg Tablet.dr, 40 MG PO DAILY Allergies Coded Allergies: Penicillins (Verified Allergy, Unknown, swelling, 06/19/19) SALVADOR MCFARLAND MD Jun 24, 2019 11:10
--- NOTE | 2019-06-24 11:20 | CR ---
DATE OF CONSULTATION: 06/23/2019 REASON FOR CONSULTATION: Recurring pancreatitis. HISTORY OF PRESENT ILLNESS: The patient is a very pleasant 38-year-old man who was admitted to the hospital on 06/19/2019 with upper abdominal pain and findings consistent with acute pancreatitis. His lipase at the time of admission was 9893 with an amylase of 538. He had otherwise normal liver function tests. He was evaluated with a CT scan of the abdomen and pelvis at the time of admission. This revealed a pancreatic and peripancreatic inflammatory changes with some adenopathy consistent with acute pancreatitis and possible secondary duodenitis. He was admitted for management of his acute pancreatitis. He had a gallbladder ultrasound, which did not show any gallstones. The gallbladder was reported as normal in appearance. The common bile duct was 5 mm in diameter. The patient has a history of three prior episodes of pancreatitis, which he described as being in October of 2017, December 2017, and January 2018. These were treated in [place] and he has subsequently moved to the [facility]. He denies any significant alcohol intake. He does not have any history of prior diagnosis of gallstones. He has not reported any history of recent viral illness and is on no medications would be felt to put him at increased risk for pancreatitis. He has been seen by Dr. Bettencourt of gastroenterology, who ordered an immunoglobulin G subclass 4 test, which is still pending. He also had an MRI of the abdomen. The MRI showed changes consistent with pancreatitis, but no evidence of gallstones and normal-sized biliary tree. Because of his recurrent pancreatitis with no other apparent inciting factors Dr. Bettencourt all had recommended consideration of cholecystectomy if the MRI and IgG4 were negative for any other predisposing factors. This would be to address the possibility of very small gallstones accounting for his pancreatitis. ALLERGIES: The patient reports an allergy to PENICILLIN. He apparently broke out in a rash when he had been started on this for an infection some years ago. CURRENT MEDICATIONS: Prior to admission were limited to Tylenol or ibuprofen as needed for pain. MEDICAL HISTORY: Is really negative other than his recent pancreatitis attacks. PAST SURGICAL HISTORY: He has had surgery on his left ankle and has undergone of a vasectomy. REVIEW OF SYSTEMS: Reveals no history of seizure or stroke. He denies any chronic severe headaches. He has no chest pain, palpitations or shortness of breath. There is no cough or wheezing. He denies any dysuria or hematuria. He has no history of melena or hematochezia, chronic diarrhea or constipation. There is no history of hepatitis or jaundice. He denies any significant bone or joint issues at this time. 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 He is . FAMILY HISTORY: Is noncontributory with no family history of pancreatitis. PHYSICAL EXAM: Reveals a pleasant man lying quietly on the hospital bed. He is fairly muscular and appears in shape. His most recent vital signs show him to be afebrile with a pulse of 43, respirations of 16 and a blood pressure of 123/67. Heart exam reveals a regular rhythm. The lungs are clear. The abdomen is mildly full. He does have bowel sounds that are quite active. He has some tenderness on palpation, particularly across the epigastrium in the mid and left upper quadrant. There is no evident hernia. He has no peripheral edema. He has palpable radial pulses. LABORATORY STUDIES: Today showed normal electrolytes with the exception of a minimal elevation of his chloride to 108. BUN is 8 with a creatinine of 0.76 and a glucose is 100. Lipase is down to 412. CBC today showed a white count of 5, hemoglobin 10, hematocrit 30 and a platelet count of 171,000. His IgG4 is pending. He had influenza A and B testing that was negative. I reviewed his CT scan images and report, his ultrasound images and report, and his MRI images and report. IMPRESSION: The patient is a healthy 38-year-old man with three or four episodes of acute pancreatitis. He denies any significant alcohol intake. He does not have any other evident predisposing factors to acute pancreatitis. Dr. Bettencourt has raised the issue of whether he could have gallbladder sludge or very small stones that could account for his pancreatitis. PLAN: I discussed with the patient the possibility that he has sludge or very small stones that could potentially cause pancreatitis. I advised him that worldwide alcohol and gallstones make up a large portion of the people who present with acute pancreatitis. There are many other potential causes, including medications, viruses and hyperlipidemia, and he does not appear to have any of these present. I advised him that we do not have any proof that his gallbladder is at fault and responsible for his pancreatitis. It could be that this is ultimately an idiopathic event for which we will never identify the cause. I did advise him that removing his gallbladder is a relatively straightforward and low risk procedure. I did advise him that there is always some risk with surgery and I counseled him regarding the nature and procedure of a laparoscopic cholecystectomy. I advised him that there are potential side effects particularly in changing the bowel habits after a cholecystectomy. He had an opportunity to ask questions. I think it would be reasonable to consider cholecystectomy. I left him to think about this. I advised him that we would wait for his immunoglobulin test that had been ordered by Dr. Bettencourt to return. In any event, we would want his pancreatitis to resolve fully before proceeding with surgery and I would anticipate that he would be discharged home and followup in the office to consider surgery if he so desires. OLVIN
== END 2019-06-24 12:20 | disposition home or self-care (01) | DRG 440 ==
LOC: M ED 12:09 → M ED INP 15:43 → ENRESERV 16:20 → M MSPAV 18:00
PROVIDERS: ADMIT Internal Medicine; ATTEND Internal Medicine
DX: K85.90 Acute pancreatitis without necrosis or infection, unspecified (principal); Z79.899 Other long term (current) drug therapy; Z88.0 Allergy status to penicillin; K29.80 Duodenitis without bleeding; R00.1 Bradycardia, unspecified

== ENCOUNTER 2019-10-28 12:40 | Inpatient (IN) | payer OTHER ==
[~2019-10-28] VITALS: Ht 170.2 cm; Wt 80.6 kg
[~2019-10-28 12:40] MED LIST: ACET-897 PO; IBUP200C28 PO; PANT40TA29 PO
[2019-10-28] MEDS ORDERED: ONDA8TAB10 PO (12:52)
[2019-10-28] MEDS ORDERED: ACET1TAB55 PO (12:52)
[2019-10-28] MEDS ORDERED: KETOROLAC 30 MG/ML 1ML VIAL IV ONE (13:15)
[2019-10-28] MEDS ORDERED: NS 1,000 ML IV ONE (13:15)
[2019-10-28] MEDS ORDERED: ISOVUE-370 76% 100ML VIAL As Ordered ONE (13:22)
[2019-10-28 13:41] LABS: BASO % 0.3 % (0.0-1.0); EOS # 0.1 10^3/uL (0.0-0.5); EOS % 1.1 % (0.0-3.0); HEMATOCRIT 38.1 % (42.0-52.0); HEMOGLOBIN 12.9 g/dl (13.5-17.5); LYMPH # 1.4 10^3/uL (1.5-5.0); LYMPH % 14.8 % (24.0-44.0); MEAN CORPUSCULAR HEMOGLOBIN 30.1 pg (27.0-33.0); MEAN CORPUSCULAR HGB CONC 33.9 g/dl (32.0-36.5); MONO # 0.6 10^3/uL (0.0-0.8); MONO % 6.1 % (0.0-5.0); NEUTROPHILS # 7.3 10^3/uL (1.5-8.5); NEUTROPHILS % 77.4 % (36.0-66.0); PLATELET COUNT, AUTOMATED 190 10^3/uL (150-450); RED BLOOD COUNT 4.28 10^6/uL (4.30-6.10); WHITE BLOOD COUNT 9.4 10^3/uL (4.0-10.0)
[2019-10-28 14:12] LABS: ALBUMIN 4.2 GM/DL (3.2-5.2); BILIRUBIN,DIRECT 0.1 MG/DL (0.0-0.2); BILIRUBIN,TOTAL 0.6 MG/DL (0.2-1.0); TOTAL PROTEIN 7.6 GM/DL (6.4-8.2)
[2019-10-28] MEDS ORDERED: MORPHINE 4 MG/ML 1ML VIAL/SYRINGE (J2270) IV ONE ×2 (14:15→16:30)
[2019-10-28] MEDS ORDERED: ONDANSETRON 4MG/2ML VIAL IV PRN (16:45)
--- NOTE | 2019-10-28 16:47 | REP ---
REASON: Abdominal pain. CONTRAST: 100 mL [id number]. COMPARISON: 06/19/2019 Prior exam showed pancreatitis. The lung bases are clear and unchanged. The liver, gallbladder, spleen, adrenal glands, and kidneys are again seen to be within normal limits. The abdominal aorta and para-aortic regions are again seen to be within normal limits. There is mild peripancreatic fatty infiltration. There is no abnormal duodenal wall thickening or periduodenal fatty infiltration. There is no abnormal peripancreatic adenopathy. There is no abnormal fluid in the anterior pararenal space or lesser sac. No free fluid or free air is seen in the abdomen or pelvis. The bowel loops and their mesenteries are within normal limits. There is minimal left lateroconal fascial thickening and minimal thickening of Zuckerkandl fascia on the left. The peripancreatic fatty infiltration and fascial thickening seen today has improved compared to the prior exam. Bone window technique throughout the examination shows the osseous structures to be stable and intact. IMPRESSION: Possible early mild pancreatitis. Findings as described above. Electronically Signed by Linden Phillips DO 10/28/2019 04:48 P
[2019-10-28 18:00] VITALS: BP 142/72
[2019-10-28] MEDS: NS 1,000 ML IV SCH ×2 (19:06→23:14)
[2019-10-28] MEDS: MORPHINE 4 MG/ML 1ML VIAL/SYRINGE (J2270) IV PRN ×2 (19:33→23:40)
[2019-10-28] MEDS: ENOXAPARIN 40MG/0.4ML SYRINGE (J1650 PER 10MG) SC SCH (21:00)
[2019-10-28 22:00] VITALS: BP 135/72
[2019-10-29] MEDS: NS 1,000 ML IV SCH ×6 (00:37→20:47)
[2019-10-29] MEDS: MORPHINE 4 MG/ML 1ML VIAL/SYRINGE (J2270) IV PRN ×3 (03:51→13:01)
[2019-10-29 05:32] LABS: HEMATOCRIT 30.7 % (42.0-52.0); HEMOGLOBIN 10.2 g/dl (13.5-17.5); MEAN CORPUSCULAR HEMOGLOBIN 30.2 pg (27.0-33.0); MEAN CORPUSCULAR HGB CONC 33.2 g/dl (32.0-36.5); MEAN CORPUSCULAR VOLUME 90.8 fl (80.0-96.0); PLATELET COUNT, AUTOMATED 125 10^3/uL (150-450); RED BLOOD COUNT 3.38 10^6/uL (4.30-6.10); WHITE BLOOD COUNT 5.5 10^3/uL (4.0-10.0)
[2019-10-29 05:57] LABS: BLOOD UREA NITROGEN 6 MG/DL (7-18); CALCIUM LEVEL 7.9 MG/DL (8.5-10.1); CARBON DIOXIDE LEVEL 26 MEQ/L (21-32); CHLORIDE LEVEL 112 MEQ/L (98-107); CREATININE FOR GFR 0.78 MG/DL (0.70-1.30); GLOMERULAR FILTRATION RATE > 60.0 (>60); GLUCOSE, FASTING 79 MG/DL (70-100); POTASSIUM SERUM 3.9 MEQ/L (3.5-5.1); SODIUM LEVEL 145 MEQ/L (136-145)
[2019-10-29 05:58] LABS: ALBUMIN 2.9 GM/DL (3.2-5.2); ALT/SGPT 18 U/L (12-78); BILIRUBIN,TOTAL 0.4 MG/DL (0.2-1.0); TOTAL PROTEIN 5.6 GM/DL (6.4-8.2)
[2019-10-29 06:00] VITALS: BP 112/59
--- NOTE | 2019-10-29 06:55 | HPEPDOC ---
[facility] Medical History & Physical Date of Admission Oct 28, 2019 Date of Service: Oct 28, 2019 Attending Physician: CHILANGO ARTIS MD History and Physical CHIEF COMPLAINT: Abdominal pain HISTORY OF PRESENT ILLNESS: 39 yo man with a medical history of thus far idiopathic pancreatitis, last episode 06/2019, with prior workup negative for gallstones, culprit medication, no hypertriglyceridemia, no alcohol use, who now returns with sudden sharp epigastric pain radiating to the back and right upper quadrant,with associated nausea and diarrhea, without any new changes to diet. In the ED, he was hemodynamically stable and afebrile but in moderate to severe distress from abdominal pain and received toradol 30mg IV x 1 without much change and morphine 4mg IV x 2 with improvement. Workup was notable for WBC 9.4, hgb 12.9, Cr 0.9, lipase 810, bland UA, unremarkable LFTs and CT showed an early pancreatitis. He is now being admitted for pancreatitis after receiving 1L NS in the ED. Past Medical History Pancreatitis 3 Surgical History Left ankle surgery and vasectomy Family History No pertinent family hx Social History Smoking: Denies Alcohol: Denies Drugs: denies Review of Systems Constitutional: Denies: Chills, Fever, Malaise, Night Sweats, Weakness, Fatigue, Weight Loss, Lethargy Eyes: Denies: Pain, Vision change, Conjunctivae inflammation, Eyelid inflammat ion, Redness ENT: Denies: Head Aches, Ear Pain, Dysphagia, Sinus Congestion, Post Nasal Drip, Sore Throat, Epistaxis Skin: Denies: Rash, Lesions, Jaundice, Bruising, Itching, Dry, Breakdown, Nail Changes Cardiovascular: Denies: Chest Pain, Palpitations, Orthopnea, Paroxysmal Noc. Dyspnea, Edema, Lt Headedness Gastrointestinal: Endorses epigastric sharp pain radiating to back and RUQ, nausea and diarrhea. No blood in stool of emesis. Genitourinary: Denies: Dysuria, Frequency, Incontinence, Hematuria, Retention Hematologic: Denies: Bruising, Bleeding Excessively, Petecchia, Purpura, Enlarg ed Lymph Nodes Endocrine: Denies: Polydipsia, Polyphagia, Polyuria, Heat Intolerance, Cold Intolerance Musculoskeletal: Denies: Neck Pain, Back Pain, Shoulder Pain, Arm Pain, Hand Pain, Leg Pain, Foot Pain, Joint Pain, Muscle Pain, Spasms Neurological: Denies: Weakness, Numbness, Incoordination, Change in speech, Confusion, Seizures Psych: Denies: Mood Normal, Anxiety, Depression, Memory Issues, Thoughts of Self Harm, Anger, Thoughts of Harming Other Physical Examination General: Alert, Cooperative, mild distress Eye: PERRLA, Conjunctiva & lids normal, MMM ENT: Atraumatic Neck: Supple, no palpable adenopathy of JVD Chest: Clear to auscultation, Normal air movement Heart: RRR, no mrg Abdomen: Epigastric and RUQ pain with palpation, no rebound, negative Delacruz's, otherwise soft, no hepatosplenomegaly. Normoactive sounds Extremity: 2+ DP pulses, WWP, no edema Skin: Nl turgor and temperature, no rashes or lesions Neuro: Strength at 5/5 X4 ext, Sensation Intact, Cranial Nerves 3-12 NL Psych Exam: Positive: Mood NL, Oriented x 3 39 yo man with a medical history of thus far suggestive of idiopathic pancreatitis, last episode 06/2019, with prior workup negative for gallstones, culprit medications, no hypertriglyceridemia, no alcohol use, who now returns with sudden sharp epigastric pain radiating to the back and right upper quadrant,with associated nausea and diarrhea, without any new changes to diet and diagnosed with pancreatitis. Acute pancreatitis: with abdominal pain, elevated lipase and CT abdomen and pelvis consistent with acute pancreatitis -Admit patient to MedSur floor IV fluids normal saline 150 mL per hour -Protonix 40 mg IV daily for GGI ppx -Morphine sulfate 4 mg IV every 4 hours PRN -Zofran 4 mg IV every 6 hours PRN -NPO for bowel rest -Activity as tolerated -DVT prophylaxis with lovenox SQ QD -AM CBC, CMP, lipase Vital Signs Vital Signs Date Time Temp Pulse Resp B/P (MAP) Pulse Ox O2 Delivery O2 Flow Rate FiO2 10/28/19 16:23 20 10/28/19 13:36 10/28/19 12:40 98.9 60 100 Room Air Laboratory Data Labs 24H Laboratory Tests 2 10/28/19 12:59: Immature Granulocyte % (Auto) 0.3, Neutrophils (%) (Auto) 77.4H, Lymphocytes (%) (Auto) 14.8L, Monocytes (%) (Auto) 6.1H, Eosinophils (%) (Auto) 1.1, Basophils (%) (Auto) 0.3, Neutrophils # (Auto) 7.3, Lymphocytes # (Auto) 1.4L, Monocytes # (Auto) 0.6, Eosinophils # (Auto) 0.1, Basophils # (Auto) 0.0, Nucleated Red Blood Cells % (auto) 0.0, Total Bilirubin 0.6, Direct Bilirubin 0.1, Aspartate Amino Transf (AST/SGOT) 26, Alanine Aminotransferase (ALT/SGPT) 25, Alkaline Phosphatase 51, Total Protein 7.6, Albumin 4.2, Albumin/Globulin Ratio 1.2, Lipase 810H 10/28/19 13:12: POC Glucose (Misc Panel) 106H, POC Sodium (Misc Panel) 137, POC Potassium (Misc Panel) 3.4L, POC Chloride (Misc Panel) 101, POC Total CO2 (Misc Panel) 22.0L, POC Blood Urea Nitrogen (Misc Panel 4L, POC Ionized Calcium (Misc Panel) 4.9, POC Creatinine (Misc Panel) 0.9, POC Hematocrit (Misc Panel) 38.0 10/28/19 14:31: Urine Color COLORLESS, Urine Appearance CLEAR, Urine pH 7.0, Urine Specific Riley 1.019, Urine Protein NEGATIVE, Urine Glucose (UA) NEGATIVE, Urine Ketones 1+H, Urine Blood NEGATIVE, Urine Nitrite NEGATIVE, Urine Bilirubin NEGATIVE, Urine Urobilinogen 0.2, Urine Leukocyte Esterase NEGATIVE, Urine WBC (Auto) 0, Urine RBC (Auto) 0, Urine Hyaline Casts (Auto) 0, Urine Bacteria (Auto) NEGATIVE, Urine Squamous Epithelial Cells 0, Urine Sperm (Auto) CBC/BMP Laboratory Tests 10/28/19 12:59 Home Medications Scheduled PRN Acetaminophen (Acetaminophen) 325 Mg Tablet, 650 MG PO Q4H PRN for PAIN Ondansetron HCl (Ondansetron HCl) 8 Mg Tablet, 8 MG PO TID PRN for NAUSEA Allergies Coded Allergies: Penicillins (Verified Allergy, Unknown, HIVES, 10/28/19) A-FIB/CHADSVASC A-FIB History Current/History of A-Fib/PAF?: No Current PO Anticoag Therapy: No Age/Risk Factor Scoring CHADSVASC: CHADSVASC Response (Comments) Value Age Risk Factor Age < 65 years old 0 Gender Risk Factor Male 0 Hx of CHF No 0 Hx of HTN No 0 Hx of Stroke/TIA/or VTE No 0 Hx of Diabetes No 0 Hx of Vascular Disease No 0 Total 0 Treatment Treatment ordered: NONE Reason Anticoagulant not given: Not indicated/[id number] CHILANGO ARTIS MD Oct 28, 2019 17:06
[2019-10-29 07:34] LABS: LIPASE 414 U/L (73-393)
[2019-10-29] MEDS: PANTOPRAZOLE 40MG VIAL (C9113 PER 1) IV SCH (08:54)
--- NOTE | 2019-10-29 11:44 | IPNPDOC ---
Text Note Date of Service The patient was seen on 10/29/19. NOTE Subjective: -Abdominal pain is improving Objective General: Alert, Cooperative, mild distress Eye: PERRLA, Conjunctiva & lids normal, MMM ENT: Atraumatic Neck: Supple, no palpable adenopathy of JVD Chest: Clear to auscultation, Normal air movement Heart: RRR, no mrg Abdomen: Normoactive bowel sounds, mild epigastric pain with palpation, soft, no rebound Extremity: 2+ DP pulses, WWP, no edema Skin: Nl turgor and temperature, no rashes or lesions Neuro: Strength at 5/5 X4 ext, Sensation Intact, Cranial Nerves 3-12 NL Psych Exam: Oriented x 3 labs: reviewed WBC 5.5 Hgb 10.2 platelets 125 na 145 K 3.9 Cr 0.78 mag 2 lipase now downtrended to 414 39 yo man with a medical history of thus far suggestive of idiopathic pancreatitis, last episode 06/2019, with prior workup negative for gallstones, culprit medications, no hypertriglyceridemia, no alcohol use, who now returns with sudden sharp epigastric pain radiating to the back and right upper quadrant,with associated nausea and diarrhea, without any new changes to diet and diagnosed with pancreatitis. Acute pancreatitis: with abdominal pain, elevated lipase and CT abdomen and pelvis consistent with acute pancreatitis -continue IV fluids normal saline 250cc/hr -Protonix 40 mg IV daily for GI ppx -Morphine sulfate 4 mg IV every 4 hours PRN -Zofran 4 mg IV every 6 hours PRN -Advance to clears -Activity as tolerated -DVT prophylaxis with lovenox SQ QD -Daily AM CBC, CMP VS,Fishbone, I+O VS, Fishbone, I+O Laboratory Tests 10/28/19 12:59 10/29/19 05:13 Vital Signs Date Time Temp Pulse Resp B/P (MAP) Pulse Ox O2 Delivery O2 Flow Rate FiO2 10/29/19 06:00 97.9 48 18 112/59 (76) 98 Room Air I&O- Last 24 Hours up to 6 AM 10/29/19 06:00 Intake Total 3750 ml Output Total 525 ml Balance 3225 ml CHILANGO ARTIS MD Oct 29, 2019 06:59
[2019-10-29 14:00] VITALS: BP 117/74
[2019-10-29] MEDS: ENOXAPARIN 40MG/0.4ML SYRINGE (J1650 PER 10MG) SC SCH (19:59)
[2019-10-29] MEDS: traMADol 50 MG TAB PO PRN (20:02)
[2019-10-29 22:00] VITALS: BP 123/66
[2019-10-30] MEDS: NS 1,000 ML IV SCH ×3 (00:49→08:52)
[2019-10-30] MEDS: traMADol 50 MG TAB PO PRN (04:48)
[2019-10-30 06:00] VITALS: BP 137/81
[2019-10-30 06:45] LABS: HEMATOCRIT 32.6 % (42.0-52.0); HEMOGLOBIN 11.1 g/dl (13.5-17.5); MEAN CORPUSCULAR HEMOGLOBIN 30.3 pg (27.0-33.0); MEAN CORPUSCULAR VOLUME 89.1 fl (80.0-96.0); PLATELET COUNT, AUTOMATED 144 10^3/uL (150-450); RED BLOOD COUNT 3.66 10^6/uL (4.30-6.10); WHITE BLOOD COUNT 4.2 10^3/uL (4.0-10.0)
[2019-10-30 07:08] LABS: ALT/SGPT 19 U/L (12-78); BILIRUBIN,TOTAL 0.6 MG/DL (0.2-1.0); BLOOD UREA NITROGEN 3 MG/DL (7-18); CALCIUM LEVEL 8.5 MG/DL (8.5-10.1); CARBON DIOXIDE LEVEL 27 MEQ/L (21-32); CHLORIDE LEVEL 109 MEQ/L (98-107); CREATININE FOR GFR 0.75 MG/DL (0.70-1.30); GLOMERULAR FILTRATION RATE > 60.0 (>60); GLUCOSE, FASTING 94 MG/DL (70-100); POTASSIUM SERUM 3.8 MEQ/L (3.5-5.1); SODIUM LEVEL 140 MEQ/L (136-145); TOTAL PROTEIN 5.9 GM/DL (6.4-8.2)
[2019-10-30 08:01] LABS: LIPASE 159 U/L (73-393)
[2019-10-30] MEDS: PANTOPRAZOLE 40MG VIAL (C9113 PER 1) IV SCH (08:52)
--- NOTE | 2019-10-30 11:31 | IPNPDOC ---
Text Note Date of Service The patient was seen on 10/30/19. NOTE Subjective: -Abdominal pain continues to improve though he is requiring the PRNs. He has been transitioned from morphine to tramadol now, requesting to have diet advanced from clears Objective General: Alert, Cooperative, mild distress Eye: PERRLA, Conjunctiva & lids normal, MMM ENT: Atraumatic Neck: Supple, no palpable adenopathy of JVD Chest: Clear to auscultation, Normal air movement Heart: RRR, no mrg Abdomen: Normoactive bowel sounds, mild epigastric discomfort with palpation, soft, no rebound Extremity: 2+ DP pulses, WWP, no edema Skin: Nl turgor and temperature, no rashes or lesions Neuro: Strength at 5/5 X4 ext, Sensation Intact, Cranial Nerves 3-12 NL Psych Exam: Oriented x 3 labs: reviewed WBC 4.2 Hgb 11.1 platelets 144 na 140 K 3.8 Cr 0.75 lipase now downtrended to 159 39 yo man with a medical history of thus far suggestive of idiopathic pancreatitis, last episode 06/2019, with prior workup negative for gallstones, culprit medications, no hypertriglyceridemia, no alcohol use, who now returns with sudden sharp epigastric pain radiating to the back and right upper quadrant,with associated nausea and diarrhea, without any new changes to diet and diagnosed with pancreatitis. Acute pancreatitis: with abdominal pain, elevated lipase and CT abdomen and pelvis consistent with acute pancreatitis -DC IVF -Protonix 40 mg IV daily for GI ppx -Tramadol 50Q6HP for moderate to severe pain -Zofran 4 mg IV every 6 hours PRN -Advanced to full liquid for breakfast and regular at lunch, if he tolerates it well, will plan for home discharge this afternoon -Activity as tolerated -DVT prophylaxis with lovenox SQ QD VS,Fishbone, I+O VS, Fishbone, I+O Laboratory Tests 10/30/19 06:34 Vital Signs Date Time Temp Pulse Resp B/P (MAP) Pulse Ox O2 Delivery O2 Flow Rate FiO2 10/30/19 06:00 97.9 51 18 137/81 (99) 100 Room Air I&O- Last 24 Hours up to 6 AM 10/30/19 06:00 Intake Total 8300 ml Output Total 4855 ml Balance 3445 ml CHILANGO ARTIS V. MD Oct 30, 2019 08:44
[2019-10-30] MEDS ORDERED: TRAM50TA2 PO (12:22)
--- NOTE | 2019-10-30 12:32 | DS.PDOC ---
Discharge Summary General Date of Admission Oct 28, 2019 at 16:37 Date of Discharge 10/30/2019 Attending Physician: CHILANGO ARTIS MD Discharge Summary PROCEDURES PERFORMED DURING STAY: None ADMITTING DIAGNOSES: 1. 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 HISTORY OF PRESENT ILLNESS: 39 yo man with a medical history of thus far suggestive of idiopathic pancreatitis, last episode 06/2019, with prior workup negative for gallstones, culprit medication, no hypertriglyceridemia, no alcohol use, who returned to the ED with sudden sharp epigastric pain radiating to the back and right upper quadrant,with associated nausea and diarrhea, without any new changes to diet. HOSPITAL COURSE: In the ED, he was hemodynamically stable and afebrile but in moderate to severe distress from abdominal pain and received toradol 30mg IV x 1 without much change and morphine 4mg IV x 2 with improvement. Workup was notable for WBC 9.4, hgb 12.9, Cr 0.9, lipase 810, bland UA, unremarkable LFTs and CT showed an early pancreatitis. He was admitted for pancreatitis after receiving 1L NS in the ED and was managed with aggressive hydration, bowel rest and morphine that was later transitioned to tramadol PRN as the pain improved. His abdominal pain improved and lipase downtrended and diet was slowly reintroduced until he tole rated a regular diet. He is now being discharged home with 5d worth of PRN tramadol and recommended to follow up with his PCP within 5d for referral to GI to investigate possible etiology for his recurrent episodes of pancreatitis that has not thus far been identified. DISCHARGE MEDICATIONS: Please see below. ALLERGIES: Please see below. PHYSICAL EXAMINATION ON DISCHARGE: VITAL SIGNS: Please see below. General: Alert, Cooperative, mild distress Eye: PERRLA, Conjunctiva & lids normal, MMM ENT: Atraumatic Neck: Supple, no palpable adenopathy of JVD Chest: Clear to auscultation, Normal air movement Heart: RRR, no mrg Abdomen: Normoactive bowel sounds, mild epigastric discomfort with palpation, soft, no rebound Extremity: 2+ DP pulses, WWP, no edema Skin: Nl turgor and temperature, no rashes or lesions Neuro: Strength at 5/5 X4 ext, Sensation Intact, Cranial Nerves 3-12 NL, normal gait Psych Exam: Oriented x 3 LABORATORY DATA: Please see below. IMAGING: CT A/P The lung bases are clear and unchanged. The liver, gallbladder, spleen, adrenal glands, and kidneys are again seen to be within normal limits. The abdominal aorta and para-aortic regions are again seen to be within normal limits. There is mild peripancreatic fatty infiltration. There is no abnormal duodenal wall thickening or periduodenal fatty infiltration. There is no abnormal peripancreatic adenopathy. There is no abnormal fluid in the anterior pararenal space or lesser sac. No free fluid or free air is seen in the abdomen or pelvis. The bowel loops and their mesenteries are within normal limits. There is minimal left lateroconal fascial thickening and minimal thickening of Zuckerkandl fascia on the left. The peripancreatic fatty infiltration and fascial thickening seen today has improved compared to the prior exam. Bone window technique throughout the examination shows the osseous structures to be stable and intact. PROGNOSIS: Good ACTIVITY: As tolerated. DIET: As tolerated, to regular DISCHARGE PLAN: Home with PRN tramadol with close PCP follow up DISPOSITION: Home DISCHARGE INSTRUCTIONS: 1. PRN tramadol for pain, with close PCP follow up ITEMS TO FOLLOWUP ON ON OUTPATIENT: 1. Pancreatitis DISCHARGE CONDITION: Stable TIME SPENT ON DISCHARGE: 32 minutes. Vital Signs/I&Os Vital Signs Date Time Temp Pulse Resp B/P (MAP) Pulse Ox O2 Delivery O2 Flow Rate FiO2 10/30/19 06:00 97.9 51 18 137/81 (99) 100 Room Air I&O- Last 24 Hours up to 6 AM 10/30/19 06:00 Intake Total 8300 ml Output Total 4855 ml Balance 3445 ml Laboratory Data Labs 24H Laboratory Tests 2 10/30/19 06:34: Nucleated Red Blood Cells % (auto) 0.0, Anion Gap 4L, Glomerular Filtration Rate > 60.0, Calcium Level 8.5, Total Bilirubin 0.6, Aspartate Amino Transf (AST/SGOT) 13, Alanine Aminotransferase (ALT/SGPT) 19, Alkaline Phosphatase 41L, Total Protein 5.9L, Albumin 3.0L, Albumin/Globulin Ratio 1.0, Lipase 159 CBC/BMP Laboratory Tests 10/30/19 06:34 Discharge Medications Scheduled PRN Acetaminophen (Acetaminophen) 325 Mg Tablet, 650 MG PO Q4H PRN for PAIN, (Reported) Ondansetron HCl (Ondansetron HCl) 8 Mg Tablet, 8 MG PO TID PRN for NAUSEA, (Reported) Tramadol HCl (Tramadol HCl) 50 Mg Tablet, 50 MG PO Q6HP PRN for MODERATE PAIN (PS 5-7) Allergies Coded Allergies: Penicillins (Verified Allergy, Unknown, HIVES, 10/28/19) CHILANGO ARTIS MD Oct 30, 2019 12:32
[2020-04-08] MEDS ORDERED: OXYC1TAB23 PO (16:06)
== END 2019-10-30 13:09 | disposition home or self-care (01) | DRG 440 ==
LOC: M ED 12:40 → M ED INP 16:37 → ENRESERV 17:09 → M MSPAV 17:50
PROVIDERS: ADMIT Internal Medicine; ATTEND Internal Medicine
DX: K85.90 Acute pancreatitis without necrosis or infection, unspecified (principal); Z88.0 Allergy status to penicillin; Z79.899 Other long term (current) drug therapy

== ENCOUNTER 2020-03-15 12:10 | Emergency (ER) | payer OTHER ==
[~2020-03-15] VITALS: Ht 167.6 cm; Wt 82.5 kg
[~2020-03-15 12:10] MED LIST changes: +ACET1TAB55 PO; +ONDA8TAB10 PO; +TRAM50TA2 PO
[2020-03-15] MEDS ORDERED: HM I200C PO (12:29)
[2020-03-15] MEDS ORDERED: MORPHINE 4 MG/ML 1ML VIAL/SYRINGE (J2270) IV ONE (13:30)
[2020-03-15] MEDS ORDERED: ONDANSETRON 4MG/2ML VIAL IV ONE (13:30)
[2020-03-15] MEDS ORDERED: NS 1,000 ML IV ONE (13:30)
[2020-03-15 13:34] LABS: BASO % 0.3 % (0.0-1.0); EOS # 0.1 10^3/uL (0.0-0.5); EOS % 0.5 % (0.0-3.0); HEMOGLOBIN 13.4 g/dl (13.5-17.5); LYMPH # 1.3 10^3/uL (1.5-5.0); LYMPH % 11.6 % (24.0-44.0); MEAN CORPUSCULAR HEMOGLOBIN 29.6 pg (27.0-33.0); MEAN CORPUSCULAR HGB CONC 34.4 g/dl (32.0-36.5); MEAN CORPUSCULAR VOLUME 86.3 fl (80.0-96.0); MONO # 0.8 10^3/uL (0.0-0.8); NEUTROPHILS # 9.2 10^3/uL (1.5-8.5); NEUTROPHILS % 80.2 % (36.0-66.0); PLATELET COUNT, AUTOMATED 205 10^3/uL (150-450); RED BLOOD COUNT 4.52 10^6/uL (4.30-6.10); WHITE BLOOD COUNT 11.4 10^3/uL (4.0-10.0)
[2020-03-15 14:10] LABS: ALBUMIN 4.3 GM/DL (3.2-5.2); BILIRUBIN,DIRECT 0.2 MG/DL (0.0-0.2); BILIRUBIN,TOTAL 0.7 MG/DL (0.2-1.0); TOTAL PROTEIN 7.3 GM/DL (6.4-8.2)
[2020-03-15] MEDS ORDERED: HYDROMORPHONE HCL 0.5 MG/ 0.5 ML SYRINGE (J1170 PER 1) IV ONE (15:15)
[2020-03-15] MEDS ORDERED: NORC1TAB7 PO (16:02)
[2020-03-15] MEDS ORDERED: ONDA4TAB6 PO (16:02)
[2020-03-15 16:41] VITALS: BP 131/89
== END 2020-03-15 16:43 | disposition home or self-care (01) ==
LOC: M ED 12:10
DX: K85.90 Acute pancreatitis without necrosis or infection, unspecified (principal); R10.9 Unspecified abdominal pain; R11.0 Nausea; Z87.19 Personal history of other diseases of the digestive system; Z98.52 Vasectomy status; Z88.1 Allergy status to other antibiotic agents
CPT/HCPCS: 80047; 80076; 82150; 83605; 83690; 85025; 96361; 96374; 96375; 99284; J1170; J2270; J2405

== ENCOUNTER 2020-06-26 08:47 | Inpatient (IN) | payer OTHER ==
[~2020-06-26] VITALS: Ht 170.2 cm; Wt 84.7 kg
[~2020-06-26 08:47] MED LIST changes: +HM I200C PO; +NORC1TAB7 PO; +ONDA4TAB6 PO; +OXYC1TAB23 PO
--- OUTSIDE RECORDS SUMMARY | 2020-06-26 08:58 | CCD ---
Author Author [facility] Address Unknown Phone Unavailable Care Team Providers Care Carrier Washer Name Role Phone Jak Mariee MD Unavailable Unavailable Jak Mariee MD Unavailable Unavailable Jak Mariee MD Unavailable Unavailable Jak Mariee MD Unavailable Unavailable Jak Mariee MD Unavailable Unavailable Jak Mariee MD Unavailable Unavailable Jak Mariee MD Unavailable Unavailable Jak Mariee MD Unavailable Unavailable Jak Mariee MD Unavailable Unavailable Jak Mariee MD Unavailable Unavailable Jak Mariee MD Unavailable Unavailable Jak Mareie MD Unavailable Unavailable Jak Mariee MD Unavailable Unavailable Jak Mariee MD Unavailable Unavailable Jak Mariee MD Unavailable Unavailable Jak Mariee MD Unavailable Unavailable Jak Mariee MD Unavailable Unavailable Jak Mariee MD Unavailable Unavailable Jak Mariee MD Unavailable Unavailable Jak Mariee MD Unavailable Unavailable Jak Mariee MD Unavailable Unavailable Jak Mariee MD Unavailable Unavailable Jak Mariee MD Unavailable Unavailable Jak Mariee MD Unavailable Unavailable Jak Mariee MD Unavailable Unavailable Jak Mariee MD Unavailable Unavailable Jak Mariee MD Unavailable Unavailable Jak Mariee MD Unavailable Unavailable Jak Mariee MD Unavailable Unavailable Jak Mariee MD Unavailable Unavailable Jak Mariee MD Unavailable Unavailable Jak Mariee MD Unavailable Unavailable Jak Mariee MD Unavailable Unavailable Jak Mariee MD Unavailable Unavailable Jak Mariee MD Unavailable Unavailable Jak Mariee MD Unavailable Unavailable Jaylene, Jak Parra MD Unavailable Unavailable Jaylene, Jak Parra MD Unavailable Unavailable Jaylene, Jak Parra MD Unavailable Unavailable Jaylene, Jak Parra MD Unavailable Unavailable Jaylene, Jak Parra MD Unavailable Unavailable Jaylene, Jak Parra MD Unavailable Unavailable Jaylene, Jak Parra MD Unavailable Unavailable Jaylene, Jak Parra MD Unavailable Unavailable Jaylene, Jak Parra MD Unavailable Unavailable Jaylene, Jak Parra MD Unavailable Unavailable Jaylene, Jak Parra MD Unavailable Unavailable Jaylene, Jak Parra MD Unavailable Unavailable Jaylene, Jak Parra MD Unavailable Unavailable Jaylene, Jak Parra MD Unavailable Unavailable Lakshmi, A Amnsi ACETYLENE CUTTER Unavailable Unavailable Copeland, A Mansi ACETYLENE CUTTER Unavailable Unavailable Lakshmi, A Mansi ACETYLENE CUTTER Unavailable Unavailable Lakshmi, A Mansi ACETYLENE CUTTER Unavailable Unavailable Lakshmi, A Mansi ACETYLENE CUTTER Unavailable Unavailable Lakshmi, A Mansi ACETYLENE CUTTER Unavailable Unavailable Lakshmi, A Mansi ACETYLENE CUTTER Unavailable Unavailable Lakshmi, A Mansi ACETYLENE CUTTER Unavailable Unavailable Lakshmi, A Mansi ACETYLENE CUTTER Unavailable Unavailable Copeland, A Mansi ACETYLENE CUTTER Unavailable Unavailable Lakshmi, A Mansi ACETYLENE CUTTER Unavailable Unavailable Lakshmi, A Mansi ACETYLENE CUTTER Unavailable Unavailable Lakshmi, A Mansi ACETYLENE CUTTER Unavailable Unavailable Lakshmi, A Mansi ACETYLENE CUTTER Unavailable Unavailable Lakshmi, A Mansi ACETYLENE CUTTER Unavailable Unavailable Copeland, A Mansi ACETYLENE CUTTER Unavailable Unavailable Lakshmi, A Mansi ACETYLENE CUTTER Unavailable Unavailable Copeland, A Mansi ACETYLENE CUTTER Unavailable Unavailable Lakshmi, A Mansi ACETYLENE CUTTER Unavailable Unavailable Lakshmi, A Mansi ACETYLENE CUTTER Unavailable Unavailable Copeland, A Mansi ACETYLENE CUTTER Unavailable Unavailable Lakshmi, A Mansi ACETYLENE CUTTER Unavailable Unavailable Copeland, A Mansi ACETYLENE CUTTER Unavailable Unavailable Lakshmi, A Mansi ACETYLENE CUTTER Unavailable Unavailable Copeland, A Mansi ACETYLENE CUTTER Unavailable Unavailable Copeland, A Mansi ACETYLENE CUTTER Unavailable Unavailable Lakshmi, A Mansi ACETYLENE CUTTER Unavailable Unavailable Copeland, A Mansi ACETYLENE CUTTER Unavailable Unavailable Lakshmi, A Mansi ACETYLENE CUTTER Unavailable Unavailable Lakshmi, A Mansi ACETYLENE CUTTER Unavailable Unavailable Copeland, A Mansi ACETYLENE CUTTER Unavailable Unavailable Lakshmi, A Mansi ACETYLENE CUTTER Unavailable Unavailable Copeland, A Mansi ACETYLENE CUTTER Unavailable Unavailable Copeland, A Mansi ACETYLENE CUTTER Unavailable Unavailable Copeland, A Mansi ACETYLENE CUTTER Unavailable Unavailable Copeland, A Mansi ACETYLENE CUTTER Unavailable Unavailable Copeland, A Mansi ACETYLENE CUTTER Unavailable Unavailable DIEKELizy BURNHAM Unavailable Unavailable JUDY, Akshat HERRERA Unavailable Unavailable Re-disclosure Warning The records that you are about to access may contain information from federally-assisted alcohol or drug abuse programs. If such information is present, then the following federally mandated warning applies: This information has been disclosed to you from records protected by federal confidentiality rules (42 CFR part 2). The federal rules prohibit you from making any further disclosure of this information unless further disclosure is expressly permitted by the written consent of the person to whom it pertains or as otherwise permitted by 42 CFR part 2. A general authorization for the release of medical or other information is NOT sufficient for this purpose. The Federal rules restrict any use of the information to criminally investigate or prosecute any alcohol or drug abuse patient.The records that you are about to access may contain highly sensitive health information, the redisclosure of which is protected by Article 27-F of the [facility] Public Health law. If you continue you may have access to information: Regarding HIV / AIDS; Provided by facilities licensed or operated by the [facility] Office of Mental Health; or Provided by the [facility] Office for People With Developmental Disabilities. If such information is present, then the following [facility] mandated warning applies: This information has been disclosed to you from confidential records which are protected by state law. State law prohibits you from making any further disclosure of this information without the specific written consent of the person to whom it pertains, or as otherwise permitted by law. Any unauthorized further disclosure in violation of state law may result in a fine or halfway sentence or both. A general authorization for the release of medical or other information is NOT sufficient authorization for further disc losure. Allergies and Adverse Reactions Type Description Substance Reaction Status Data Source(s ) Drug Class PENICILLINS Penicillin Anaphylaxis [facility] Encounters Encounter Providers Location Date Indications Data Source(s ) Outpatient 09/07/2020 12:00:00 AM [facility] Outpatient Attender: RASHEED VILLALTA [id number] 06/14/2020 01 :49:33 PM [facility] Outpatient Attender: Mansi Martins NP [id number] 06/08/2020 12:00:00 AM EST [facility] Outpatient Referrer: RASHEED VILLALTA 05/08/2020 12 :00:00 AM EST Other chronic pancreatitis [facility] Other chronic pancreatitis Outpatient Attender: JAVIER JUDY [id number] 05/03/20 12:00:00 AM EST - 05/03/2020 08:27:06 AM EST Other chronic pancreatitis [facility] Other chronic pancreatitis Outpatient Attender: Fidel Mariee MD Main Office 02/28/2020 09:15:00 AM EDT [facility] ([facility]) Outpatient Attender: Fidel Mariee MD Main Office 11/17/2019 11:00:00 AM EDT [facility] ([facility]) Outpatient 06/28/2019 09:23:00 AM EST [facility] Radiology Imaging Medications Medication Brand Name Start Date Product Form Dose Route Admi nistrative Instructions Pharmacy Instructions Status Indications Reaction Description Data Source(s) gadobutrol (GADAVIST) contrast injection 7.5 mL [id number] 05/08/2020 01:15:00 PM EST 0.1 mL/kg Intravenous completed 7.5 mL (rounded from 7.94 mL = 0.1 mL/kg 79.4 kg), Intravenous, 1 TIME IMAGING, 05/08/20 at 1315, For 1 dose, Imaging Protocol
Do not mix or administer in the same IV line with other medica tions.
[facility] Medication administered onsite Amylases 82622 UNT / Endopeptidases 3800 0 UNT / Lipase 05275 UNT Delayed Release Oral Capsule [Creon] Creon 02/28/2020 12:00:00 AM EDT ORAL active [facility] ([facility]) No Active Medications 11/17/2019 12:00:00 AM EDT completed [facility] ([facility]) Insurance Providers Payer name Policy type / Coverage type Policy ID Covered libertarian ID Covered libertarian's relationship to martinez Policy Martinez Plan Information [facility] ACTIVE DUTY [id number] SP [id number] [facility] U [id number] Self [id number] Hepa WashA [facility] O [id number] S [id number] [facility] [id number] Problems, Conditions, and Diagnoses Code Display Name Description Problem Type Effective Dates Data Source(s) 78759627 Pancreatitis Pancreatitis Problem 11/17/2019 12:00:00 A M EDT [facility] ([facility]) K86.1 Other chronic pancreatitis Other chronic pancreatitis Diagnosis 05/08/2020 11:26:18 AM [facility] Results ID Date Data Source [id number] 06/14/2020 01:49:33 PM [facility] Name Value Range Interpretation Code Description Data Josiane rce(s) Supporting Document(s) Progress Note [facility] NZUMWr4yPmWQCwDo95/COPmmSIAbn1VkTKyoTKa2LXqoQBAdS9DcAGZ2dS1rKRD5ECdQXuEnJyCaYmHa lbm [file] 0Mx3ZoqzE8iqGlUUnqVXN1Eo2DFQCPV6RTMe== ID Date Data Source [id number] 06/08/2020 08:48:53 AM EST [facility] Name Value Range Interpretation Code Description Data Josiane rce(s) Supporting Document(s) Progress Note [facility] EUBPYm6oNbJQSwUs39/FOUlcQTCpw6QvGZcoRSv1MMyzGCHdB9IqKAJ9oY1nFOF7BYeQMgKgVfOlRuX8 lbm [file] ufkj//Xpeb5r1vesqt7fEpe5kEpfkhv2i+Dgrou3Mi rWOjvbl3FI3mVn/P/avlwu9cvv2Odgvop3CbtoyaymtoHR/rzXRyMD3/3fxcenaw2piXCGQ0z2e/ent9 7hwlLPOYJAMkipykxhqQkbrIckCgG7ROc81J/qUto7t1DAQyh6ynHp9e3XngpxPS2sYeKw9h83+TjXHy xgoJ0jRjsuc3EmT5ZACkxl3dzUpCyS3ihVuWV1uamJ RKFFn5MKoR4IitcTFh/5a0F27c3tba95uP1mwV5qE4KbayZb1zNgat7WHg5zQBMdZqHojRKdaYVYvy0a 8b9vN093Jr8mGbkMkuRLncuyY8RJovN2d5OszUXwM00MM2MBy7ez0pEG+uSBcHXm2LCHfwpyamo7achh sN5PtCt8I7EFrBLh2c3LMNvamVWYazmET5x9LC9NKO kw3bwBi6EnazzIQLV5NUL7BlqRlBSSt2XCaanz1v8LX2/rJ6h7uRU8UmlTlnRfzCp8EZb2I0q9z6Ejfw +p90nQnck/LntgftAllx5UazrVHptXs3OGWuOSldx4VlqlWXBYCSq8f7vUsaYD6ve0L57M+cLKajvgaF B1hheTnoDJk67nuTy5JhRFNskx6OdVw8OLbU43rVIc Nakul/Qk3Hd296/tile finisher+soCOy5tCwZ6pg788HnWh+wr/ze94AO7WtPDRSoF6LzMc3B+Rcb22+fb21uP+7npE [file] XSANCj4+ENdolAWfdHnoLAIYYlJ6SHE3TCudIBPOCu8O ID Date Data Source [id number] 05/13/2020 03:38:57 PM [facility] Name Value Range Interpretation Code Description Data Josiane rce(s) Supporting Document(s) Progress Note [facility] WKJXJg3tHdIIKhVk97/VJLdqVZNst5OvJTlrAUz9VPzmKKAbM1JiTCG9xQ5dVZD2ADyEZvSxMwTwYRIb lbm [file] AgICAgICAgICAgICAgICAgICAgICAgICAgICAgICAg ICAgICAgICAgICAgICAgICAgICAgICAgICAgICAgICAgICAgICAgICAgICAgICAgICAgICAgICAgICAg BEQdWXXrDQ6UVNYnIQHqULTpQKWgQBEoTAVoCZDnAQZwZCEtYJOaRFMgGVVnLFMsKBKzXWUhRGLhDZBr ICAgICAgICAgICAgICAgICAgICAgICAgICAgICAgIC JhFCSxBMUlHVEwLAYgPTMdMB2ZGCDkCJZmBNQyGSQiXIKeUHMzIZHqYCQuCVIoQLOmJDSgYGWyPGKoLA AgICAgICAgICAgICAgICAgICAgICAgICAgICAgICAgICAgICAgICAgICAgICAgICAgICAgICAgICAgIA 0KICAgICAgICAgICAgICAgICAgICAgICAgICAgICAg ICAgICAgICAgICAgICAgICAgICAgICAgICAgICAgICAgICAgICAgICAgICAgICAgICAgICAgICAgICAg WJPgOXJnLGYyTZ9VLEThLKPyFSJfGGMpPHItVCTqYOWbYOLwUIUnADEwYDNxIMHpWRHqNGJfQQVmBRWo ICAgICAgICAgICAgICAgICAgICAgICAgICAgICAgIC KpORYrWFDtJEUdHBJmLPXwDUXbXK8XBOTaZUVsFNRgBEKnQUHfRVLuBKTcKCPuZJEjMONvAXLqNOYtZD AgICAgICAgICAgICAgICAgICAgICAgICAgICAgICAgICAgICAgICAgICAgICAgICAgICAgICAgICAgIC NfMY8WHSKmBLGgGKOkQCLvUSPuKULrKKJxJGBeVPOz ICAgICAgICAgICAgICAgICAgICAgICAgICAgICAgICAgICAgICAgICAgICAgICAgICAgICAgICAgICAg IFIoYSUnDCJzESBcNR4OJNHsDDDaAPMzHKPdCGBlWIDrEMTvHGNaIQNoYYUiEXLrGJVnCORgXJBdJIOf ICAgICAgICAgICAgICAgICAgICAgICAgICAgICAgIC EfQUUlEEFxGGAxHSZvGDIlDSZmZIMaOX5ECJNiMEAbXGKiGZNbLYZhCLGmIUMkGOEfFTNbMWJqWHZsBG AgICAgICAgICAgICAgICAgICAgICAgICAgICAgICAgICAgICAgICAgICAgICAgICAgICAgICAgICAgIC HwLKUiVO3PZR51nRBdi0H8XKTjVK2uuyh/To2MBQaq bxFoeWGoGR6MSnLcTC4tbr1UUkXuIB6dpr1GJZxEReHaR7R4vZRbAFOgAFGETtSkS37pSOjfPj20HFpg JCTlDeYeOHp0Um2TItSnJ7mlCOElVwH7WPWqJoO2BEHgSyUxHTucXP5Nb8EwuHGmOUr+Kc8GGF7fp9Lr IUmbQkXrGM3tku3VQLsDCsYgE7FlngG1XVJ0QEOyBm 9RERKjDELllWDbRPMqOQREDeBmR9NexX60BTTSBn1+VIxolfPwXghTEmK8PUPap9QdSRm4GA0VJYTwSI n2pXCgSRNdD1Nsx3TmSg45WZCnXstcT3Vde6IxieZKVAirfPu9ANGTJOPtaQTeCm9wGV9oFYHqIVUyXf ZxDNEWXD1ZQSAfZWPxsNFdMGRiDNGODC9OVBkjYQM0 CITnshEpqWJiYSnoST3ONGRffoMoAmnaHNKUHTd+Pi6EQD5qi0KxPYhoORVvED0kom7AHQkSZnGbL9A7 lRBeN1Q7FBhlTs3ZJVJsHAThEfEcVBSYLRczUX6QTK7bhfU1IC1QnMGlUQIqNPKbuLZbPDi1B55kvXDk MMuiQK5FQPO+Inocencia+Zw9QNUYpHVYbKWEpFrYzBCFKPt NoK8CwQ7FEj6AeI0VuPE23dWyvpvAeINuqFV1FDA6qICUvRWPWKE4TuUCduR9snaFkKnJqCDQSNlQsG9 7lcPHiJWMiQXN9EFRxHn1YXPEjA7VrypKnjKsydwRpDJXsODRPWI2BLDwzjtFchXNppTsyPZ88oRhtED 1VBa8KEaWdIZ5wjk0OdHVwVt1WXLMqQD1VCCTbAFGc BBIiTUJ1BAXiEwGcYPkvAWTfMVXaGQD5VUHeQVQsBE5HGcDiOMHfJxXfSGUdOJAsYWAljy3FIZGcGGRo DFj9GFFfCDXnGQGsMJjtWPYkLBMwACW4OVCvEQObTI2XBwIwDSXeMNY0NuIlJYJuKOWrqh0DUGUrQKFu TEB8VSTwRUCiMNVpVRtrADBwURT5LrPfVODeNEDiSE 7VIjZkQPAvCQQ7RTYcXPRpBYMnnj8OEXYlXIAvNfHmPcXkZACuHFCyGLxbOHZtQDT9OzN1ULDvHNWkLG 5ZBsQzLIVgWOK5ZAVyAEUcEIIptj4WNLBcRZHbEot6LEKaSAFvQBVcBKstSLFzNQG3ULSjWUZzUHRfBC 1NBsUpDWIgPJjlQfjfNXJdZUIjgu5CSWZmVFFrMOY1 INXiRBHqBBVoZCfiEBVrLTC8VTUdZSGbKUKyXZ4ZYjKqVVDxCoKzOGoxOMYuGFPgxv8DHQCePVCuEUZ0 AAHdDHMzLYEdHOnnXPXnGVBlFRM9EPHuRVRzHP7JUyNbMZNyAzWjFKpgGUGoQXEhzn9YQFAoPWZhVNH6 IeDwEYPfAMZhMPdnTIFeABLmVrT7SVMjCABgXT1KEs ZdVZAbJhV0OnMmXNKbRVQwld3KRWZtGARgYlstPXViNNIwKFNlSMqxPVOtRCGgAVbbFENcOSOgNT1MNe PzLGPuLvL5FuHeNDRbIIHjnn2XFXGiRZOnZFh5BZVgCRZuPKFuPOecSAEzFSD6UEI3UROeWMPfPV0DJs XaSJEwMoYlNYLtUMYtZRPizq9FfKWfcHfsew4YGByF Al8UgKuvOOJoBQsgVc9sdVHiNPTdUCFNUr3XezFqHDQrADUKEBkgQKKxJHOuLeOeNIp1IXDeTTXmJWZg BUClJRSfOKBpKqVrQNvqGmM5EZA8LVNtGRtcKWWwARY3WWJtTBUbNNBaM7QdZPV2QyJ+PO4lTTv+Pg0K q0XtkiC9aeHjQVkqVGDfSP7BHVUIC4VJXe== ID Date Data Source [id number] 05/13/2020 03:24:00 PM [facility] Name Value Range Interpretation Code Description Data Josiane rce(s) Supporting Document(s) Progress Note [facility] HLOYWe2mIyUJOqGs30/LABfjPHIzp1ThGShnSIx7TIjtCTQgB1CxQLM8yD0zPKW6IPrFGqBoKsXtHCFi lbm [file] VJtZPZblFBX7fElsEHuh+J/hO/Transfer And [employer]umph[employer] Operator+sESyq77I9eiDC [file] YzZmYmI+SG7rUFx+Ny2Bo5ByeyW4cvSkHYvyCRTjHO3ODIAUD9FQKs== ID Date Data Source [id number] 05/09/2020 01:06:07 PM [facility] MR ABDOMEN WITH AND WITHOUT CONTRAST 741 83FINAL RESULTInterpreted by:Marjan Jacobson, DOINDICATION: 39-year-old male with hx of idiopathic pancreatitis. R/o underlying process.TECHNIQUE: Multiplanar and multisequence MR images of the abdomen were obtained without intravenous contrast administration as per MRCP protocol. T1-weighted images were then acquired following intravenous administration of 8 mL of Gadavist contrast.COMPARISON: CT abdomen and pelvis dated 04/08/2020.FINDINGS:MRCP: The biliary tree is normal in caliber with no evidence of dilation or filling defect to indicate stone or tumor. Pancreatic duct is normal in course and caliber with no dilation or side branching cysts.LIVER: There are multiple T2 hyperintense lesions measuring 0.4 cm or less, the majority of which are favored to be tiny simple cysts. However, in segment 7, there is a 0.5 cm lesion that demonstrates an enhancement pattern consistent with hemangioma. No other enhancing mass. No ascites.GALLBLADDER: Fluid-filled gallbladder. No filling defect to indicate gallstone, polyp, tumor or sludge. PANCREAS: The pancreas is normal in size and configuration. Of note is that the distal most tail is nodular in configuration (axial postcontrast image 30, out of phase T1 axial image 18. While this may be part of the pancreas that is inflamed, the possibility of small pancreatic mass cannot be entirely excluded. The presentation is not entirely clear and other considerations include splenule and volume averaging with the adjacent splenic artery. No pancreatic ductal dilation or peripancreatic edema. There is faint delayed enhancement of the pancreatic tail, favored to be postinflammatory in nature and likely the site of recent focal pancreatitis. The pancreatic duct is not visible in this region, likely due to the residual inflammation. No clear evidence of enhancing mass.SPLEEN: Normal size, configuration and with homogenous signal intensity.ADRENAL GLANDS: Normal in size and configuration.KIDNEYS: No hydronephrosis, stone, or renal mass.GI TRACT: Visible bowel loops are normal in course and caliber with no bowel wall thickening or dilation. Small amount of stool is present within the large bowel.LYMPH NODES: No pathologic lymphadenopathy.ABDOMINAL WALL: Abdominal wall demonstrates no fat stranding or fluid collection.BONES: The visualized osseous structures demonstrate normal signal intensity.LUNG BASES: No pleural effusion or consolidation.HEART AND VASCULATURE: The heart and pericardium are normal in size and configuration with no pericardial effusion. Abdominal aorta and its main branches are normal. IMPRESSION:1. Mild subtle delayed enhancement in the pancreatic tail which is favored to be due to mild to moderate inflammatory change, and consistent with history of recent pancreatitis.2. Nodular component at the pancreatic tail, similar to appearance on prior CT. Presentation of this nodule is not entirely clear and the possibility of small pancreatic mass cannot be excluded. Other considerations include splenule or volume averaging of adjacent splenic artery. Follow-up MR imaging in 3-6 months is recommended for further clarification.3. Tiny hepatic hemangioma in segment 7.4. Tiny T2 bright lesions scattered throughout the liver favored to be simple hepatic cysts.END IMPRESSIONThis document has been electronically signed by Adalgisa Espinal MD on 05/09/2020 1:03 PM Name Value Range Interpretation Code Description Data Josiane rce(s) Supporting Document(s) ID Date Data Source [id number] 11/30/2019 02:32:00 PM EDT [facility] ([facility]) Name Value Range Interpretation Code Description Data Josiane rce(s) Supporting Document(s) Elastase.pancreatic [Mass/mass] in Stool Laboratory test result [facility]) Procedure Social History Code Duration Value Status Description Data Source(s ) Alcohol intake 06/08/2020 12:00:00 AM EST Current drinker of al cohol (finding) completed Current drinker of alcohol (finding) [facility] Tobacco use and exposure 06/08/2020 12:00:00 AM EST Current user co mpleted Current user [facility] Cigarette pack-years 06/08/2020 12:00:00 AM EST [facility] Cigarettes smoked current (pack per day) - Reported 06/08/19 12:00:00 AM EST [facility] Smoking 06/08/2020 12:00:00 AM EST Former smoker completed Former smoker [facility] Alcohol intake 05/03/2020 12:00:00 AM EST Current drinker of al cohol (finding) completed Current drinker of alcohol (finding) [facility] Vital Signs ID Date Data Source UNK Name Value Range Interpretation Code Description Data Source(s) Body temperature 97.7 [degF] 97.7 [degF] [facility] ([facility]) Body weight 81.648 kg 81.648 kg [facility] Body mass index (BMI) [Ratio] 28.2 kg/m2 28.2 k g/m2 [facility] ([facility]) Heart rate 58 /min 58 /min [facility]) Diastolic blood pressure 87 mm[Hg] 87 mm[Hg] [facility] ([facility]) Systolic blood pressure 126 mm[Hg] 126 mm[Hg] M [facility] ([facility]) Body weight 180.00 [lb_av] 180.00 [lb_av] [facility] T ([facility]) Body height 67 [in_i] 67 [in_i] [facility] 5'7" Body weight 81.648 kg 81.648 kg [facility] Body mass index (BMI) [Ratio] 28.2 kg/m2 28.2 k g/m2 [facility] ([facility]) Heart rate 55 /min 55 /min [facility]) Diastolic blood pressure 85 mm[Hg] 85 mm[Hg] [facility] ([facility]) Systolic blood pressure 127 mm[Hg] 127 mm[Hg] M [facility] ([facility]) Body weight 180.00 [lb_av] 180.00 [lb_av] [facility] T ([facility]) Temp 97.0 Body height 67 [in_i] 67 [in_i] [facility] 5'7" ID Date Data Source [id number] 05/13/2020 03:38:57 PM [facility] Name Value Range Interpretation Code Description Data Source(s) WEIGHT RECORDED 175 lb 175 lb [facility] Body height Measured [address] [facility]
--- OUTSIDE RECORDS SUMMARY | 2020-06-26 08:58 | CCD | Summary of Care ---
Author Author [facility] Organization [facility] Address Unknown Phone Unavailable Care Team Providers Care Licensing Engineer Name Role Phone PCP Unavailable Reason for Referral * Diagnostic Radiology (STAT) Referred By Contact Referred To Contact Status Reason Specialty Diagnoses / Procedures Silvia Ruiz, GALINA [address] [facility] [address] [place] [address] Email: [email or web address] Authorized Radiology Diagnoses Idiopathic chronic pancreatitis P rocedures MR Abdomen with and without Contrast Reason for Visit * Reason Comments New Patient Encounter Details Care Team Description Date Type Department Giovana Cifuentes MD [address] [place] [address] Idiopathic chronic pancreatitis 05/03/2020 Telemedicine Multidisciplinary Programs [address] [address] Allergies Comments Active Allergy Reactions Severity Noted Date Penicillins Anaphylaxis High 05/03/2020 documented as of this encounter (statuses as of 05/13/2020) Medications No known medicationsdocumented as of this encounter (statuses as of 05/13/2020) Active Problems Not on filedocumented as of this encounter (statuses as of 05/13/2020) Social History Date Tobacco Use Types Packs/Day Years Used Former Smoker Cigarettes 0.5 10 Smokeless Tobacco: Chew Current User Drinks/Week oz/Week Comments Alcohol Use Yes Sex Assigned at Date Recorded Not on file Date Recorded COVID-19 Exposure Response 05/08/2020 11:24 AM EST In the last month, have you been in contact with No / Unsure someone who was confirmed or suspected to have Coronavirus / COVID-19? documented as of this encounter Last Filed Vital Signs Reading Time Taken Comments Vital Sign - - Blood Pressure - - Pulse - - Temperature - - Respiratory Rate - - Oxygen Saturation - - Inhaled Oxygen Concentration 79.4 kg (175 lb) 05/03/2020 12:11 PM EST Weight 170.2 cm (5' 7") 05/03/2020 12:11 PM EST Height 27.41 05/03/2020 12:11 PM EST Body Mass Index documented in this encounter Progress Notes * Giovana Cifuentes MD - 05/03/2020 2:30 PM EST Hepatobiliary, Pancreatic, and GI Surgical Oncology Clinic Note: PATIENT: Alexandre Sow DATE: 05/03/2020 We had the pleasure of seeing Alexandre Sow in Hepatobiliary, Pancreatic, and GI Surgical Oncology Clinic for idiopathic recurrent pancreatitis. Alexandre Sow bagley s been kindly referred to us by Dr. Fidel Mariee. This is a tele-medical visit. The patient was informed of the risks including se curity breach, technological failure, inability to perform a comprehensive physi fox exam which could delay or prevent an accurate diagnosis, and potential compl ications from treatment decisions rendered over a telemedical platform. The stefany ent understands and consented to the use of tele-health services. The service was provided by means of an audio/video telecommunication. This is a 39-year-old otherwise healthy male who presents for evaluation of idio pathic, recurrent, pancreatitis. His symptoms initially started in May 2018 and he has had multiple attacks of pancreatitis. His first hospitalization was in October 2018 and he has subsequently had numerous other attacks, several have r equired hospitalization and others he manages at home with bowel rest or a low-f at diet. He does not think there has been any trigger with regards to food, tho ugh he does report that these seem to come on at times of stress. He has no pas t surgical history in his abdomen. He used to drink 2-4 drinks per week but now drinks very rarely. He does not smoke or use recreational drugs. [facility] no [facility]. He does report that he used to take L-arginine fo r muscle building, but stopped after the first attack of pancreatitis and has no t resumed it since that time. There is never any evidence of choledocholithiasi s. IgG4 level was normal. He has normal triglycerides. I have had the opportunity to personally review the original images and there ar e sequelae of his multiple attacks of pancreatitis. There are no obvious struct ural abnormalities or masses, but the studies are not fully contrasted for this. IMPRESSION/PLAN: My overall impression is that Alexandre Sow 39-year-old otherwis e healthy male presenting for evaluation of idiopathic, recurrent pancreatitis. He initially started to experience symptoms in May 2018 and has subsequently had multiple attacks since that time. He does not abuse alcohol, has no evide nce of gallstones, he has no family history of pancreatitis, and his IgG4 and tr iglycerides are normal. We have ordered a high-resolution MRI/MRCP to reevaluate his pancreas while he i s not having an active attack and we will plan to rule out definitively any stru ctural abnormalities or masses. If he truly has idiopathic pancreatitis then we could consider offering him cholecystectomy. I will see him back in clinic to discuss the results of the MRI. I have seen and evaluated the patient with JENNIFER Walker, MSN, CCRN . Together we reviewed the patient's chart, personally reviewed his imaging, in terviewed and examined the patient. I have read, edited, and agree with her not e. I spent 30 minutes on this visit, over half of which was devoted to [id number] counseling of the patient regarding that natural history of their condition, op tions for ongoing evaluation, treatment and follow-up. Giovana Cifuentes MD, MPH toll ticket clerk Complex GI Surgical Oncology Hepatobiliary and Pancreatic Surgery [facility] [address] [place] [address] 05/13/2020 3:25 PM * Silvia Ruiz, COMPUTER TECHNOLOGY INSTRUCTOR - 05/03/2020 2:30 PM EST This is a tele-medical visit. The patient was informed of the risks including se curity breach, technological failure, inability to perform a comprehensive physi fox exam which could delay or prevent an accurate diagnosis, and potential compl ications from treatment decisions rendered over a telemedical platform. The stefany ent understands and consented to the use of tele-health services. The service was provided by means of an audio/video telecommunication. Time spent on this evaluation today: 30 minutes Reason for consult: chronic idiopathic pancreatitis. Referring physician: Dr Mariee History of present illness: Alexandre Sow is a pleasant 39 y.o. male who was kin dly been referred to the hepatobiliary pancreatic surgical oncology clinic today for second opinion regarding idiopathic and now chronic pancreatitis. Patient reports that he is otherwise healthy, active in the [employer] and a t his baseline state of health. The patient reports a new onset of mild stomach discomfort which started in 2018. He reports that at the time he was stationed in [place] and [place]. He reports that he w as awaiting a referral to a shaft sinker however by October 2018 was hospital ized for increased abdominal pain, subsequently diagnosed with his first index e pisode of pancreatitis. Following this initial attack of pancreatitis, the [facility] ent reports an additional 10 episodes of pancreatitis. His most recent was chris ier this week which he reports that he managed at home with total gut rest, eith er not eating at all or sticking with a low fat full liquid diet has helped. He was last hospitalized for pancreatitis in April of this year. While the [facility] ent is unaware of any particular triggers to this pain such as food he has been keeping a log and reports stressful events surrounding each of the dates. The patient has no past surgical history on his abdomen. His surgical history o therwise includes ankle arthroscopy, tonsillectomy, vasectomy, and wisdom tooth extraction. Patient denies any pertinent past medical history and does not take any medication on a daily basis. Patient reports that he uses alcohol sparingly now. In the past he reports that he would drink 2-4 drinks/week. The patient does not smoke. He has a past his tory of smoking but quit 2005/2006. He does not use recreational drugs. Patient has no personal history of cancer, he is not diabetic, he also has no kn own family history of cancer. Patient reports that he took "L-argaine " for many years (for muscle building) b ut stopped after first attack of pancreatitis as advised by a physician. Previous CT scans and MRIs were negative for any choledocholithiasis, and pancre as divisum. The patient does report he was given a prescription for Creon at 1 point in time however he reports that this made no difference in his attacks of pancreatitis or his abdominal discomfort and thus he was advised to stop taking them. He does report intermittent episodes of steatorrhea, however these episod es are self-limiting. The patient denies any abdominal pain, tenderness, bloati ng, and early satiety. Pt denies any unintentional weight loss. Review of systems: A complete review of systems was performed and found to be ne gative except as HPI and PMH Past Medical History: Diagnosis Date Pancreatitis Sleep apnea mild Past Surgical History: Procedure Laterality Date ANKLE ARTHROSCOPY TONSILLECTOMY VASECTOMY WISDOM TOOTH EXTRACTION ALLERGIES: Allergies Allergen Reactions Penicillins Anaphylaxis MEDICATIONS: No current outpatient medications on file. Social History Tobacco Use Smoking status: Former Smoker Packs/day: 0.50 Years: 10.00 Pack years: 5.00 Types: Cigarettes Smokeless tobacco: Current User Types: Chew Substance Use Topics Alcohol use: Yes No family history on file. PHYSICAL EXAMINATION: CONSTITUTIONAL: Well-appearing 39-year-old male, he presents today via [employer]Cam te chnology. Physical examination is limited due to telemedicine. VITAL SIGNS: Height 1.702 m, weight 79.4 kg (175 lb). Body mass index is 27.41 k g/m. GENERAL APPEARANCE: The patient is well developed, well nourished and in no acut e distress. ECO PSYCHOLOGICAL: Alert and oriented to person, place and time. Affect and mood ar e appropriate and congruent. EYES: No icterus ENT/Thyroid: Neck: Soft supple, trachea midline, no incisions present Oral: moist mucous membranes, fair dentition RESPIRATORY: Non labored respirations. No audible wheeze or stridor. Bilateral and symmetric chest rise. CARDIOVASCULAR: Is WNL, no JVD, no cyanosis or pallor present INTEGUMENTARY: No rashes, lesions, or jaundice. NEUROLOGICAL: No focal deficits. Patient is awake, conversive and appropriate DATA REVIEW / MEDICAL DECISION MAKING: Outside records reviewed and summarized in HPI I have personally reviewed the following diagnostic tests: Laboratory studies: Imaging studies: Images and report reviewed Assessment and Plan: Alexandre Sow is a 39 y.o. male who presents today for initi al evaluation of idiopathic pancreatitis with several acute on chronic episodes. Today the patient met with myself along with Dr. Cifuentes who reviewed the imaging and referral in detail. We will start by ordering a high-resolution MRI/MRCP to better evaluate the pancreas as well as the biliary tree to rule out any unde rlying processes. Otherwise patient should keep a symptom diary as well as log any particular dates and corresponding factors which may help identify potential triggers of this pancreatitis. Patient can follow-up in our office following this MRI. This likely be done in the next 4 to 6 weeks. Given that he comes a considerable distance it is okay f or this visit to be done via telemedicine. We may consider cholecystectomy in future if his pancreatitis is thought to be idiopathic. The patient indicates understanding of these issues and agrees with the plan. JENNIFER Walker, MSN, CCRN Nurse Practitioner Hepatobiliary and Pancreatic Surgery [facility] [address] [place] [address] documented in this encounter Nursing Notes * Keely Olivas MA - 05/03/2020 2:30 PM EST New patient. He started getting pain again 2 days ago and went back to a full li quid diet and the pain back off. documented in this encounter Plan of Treatment Health Maintenance Due Date Last Done Comments MMR Vaccines (1 of - 10/14/1980 Standard series) Varicella Vaccines (1 of 10/14/1980 2 - 2-dose childhood series) DTaP,Tdap,and Td Vaccines 10/14/1986 (1 - Tdap) HIV Screening 10/14/1992 Influenza Vaccine 02/02/2020 Pneumococcal Vaccine: 65+ 10/14/2044 Years (1 of 1 - PPSV23) HIB Vaccines Aged Out No longer eligible based on patient's age to complete this topic Hepatitis A Vaccines Aged Out No longer eligibl e based on patient's age to complete this topic Hepatitis B Vaccines Aged Out No longer eligibl e based on patient's age to complete this topic IPV Vaccines Aged Out No longer eligible based on patient's age to complete this topic Pneumococcal Vaccine: Aged Out No longer eligib le based on patient's age to Pediatrics (0 to 5 Years) complete this topic and At-Risk Patients (6 to 64 Years) documented as of this encounter Results * MR Abdomen with and without Contrast (05/08/2020 1:08 PM EST) Specimen Impressions Performed At IMPRESSION: [facility] 1. Mild subtle delayed enhancement in the pancreatic tail which is favored to be due to mild to moderate inflammatory ch aydin, and consistent with history of recent pancreatitis. 2. Nodular component at the pancreatic ta il, similar to appearance on prior CT. Presentation of this nodule is not enti rely clear and the possibility of small pancreatic mass cannot be excluded. Oth er considerations include splenule or volume averaging of adjacent splenic ar karli. Follow-up MR imaging in 3-6 months is recommended for further clarificatio n. 3. Tiny hepatic hemangioma in segment 7. 4. Tiny T2 bright lesions scattered throu ghout the liver favored to be simple hepatic cysts. END IMPRESSION Narrative Performed At [facility] INDICATION: 39-year-old male with hx of idiopathic pancreatitis. R/o underlying process. TECHNIQUE: Multiplanar and multisequenc e MR images of the abdomen were obtained without intravenous contrast administr ation as per MRCP protocol. T1-weighted images were then acquired following int ravenous administration of 8 mL of Gadavist contrast. COMPARISON: CT abdomen and pelvis dated 04/08/2020. FINDINGS: MRCP: The biliary tree is normal in fox iber with no evidence of dilation or filling defect to indicate stone or hema or. Pancreatic duct is normal in course and caliber with no dilation or side br anching cysts. LIVER: There are multiple T2 hyperinten se lesions measuring 0.4 cm or less, the majority of which are favored to be tin y simple cysts. However, in segment 7, there is a 0.5 cm lesion that demonstra marley an enhancement pattern consistent with hemangioma. No other enhancing mass. No ascites. GALLBLADDER: Fluid-filled gallbladder. No filling defect to indicate gallstone, polyp, tumor or sludge. PANCREAS: The pancreas is normal in siz e and configuration. Of note is that the distal most tail is nodular in configur ation (axial postcontrast image 30, out of phase T1 axial image 18. While this may be part of the pancreas that is inflamed, the possibility of small panc reatic mass cannot be entirely excluded. The presentation is not entirely clear and other considerations include splenule and volume averaging with the adjacent splenic artery. No pancreatic ductal dilation or peripancreatic edema. There is faint delayed enhancement of the pancreatic tail, favored to be postinfl ammatory in nature and likely the site of recent focal pancreatitis. The pancreatic duct is not visible in this region, likely due to the residual inflammation. No clear evidence of enha ncing mass. SPLEEN: Normal size, configuration and with homogenous signal intensity. ADRENAL GLANDS: Normal in size and conf iguration. KIDNEYS: No hydronephrosis, stone, or r enal mass. GI TRACT: Visible bowel loops are irena l in course and caliber with no bowel wall thickening or dilation. Small amou nt of stool is present within the large bowel. LYMPH NODES: No pathologic lymphadenopa thy. ABDOMINAL WALL: Abdominal wall demonstr ates no fat stranding or fluid collection. BONES: The visualized osseous structure s demonstrate normal signal intensity. LUNG BASES: No pleural effusion or cons olidation. HEART AND VASCULATURE: The heart and pe ricardium are normal in size and configuration with no pericardial effus ion. Abdominal aorta and its main branches are normal. Procedure Note Interface, Received Via [employer] - 05/09/2020 1:06 PM EST INDICATION: 39-year-old male with hx of idiopathic pancreatitis. R/o underlying process. TECHNIQUE: Multiplanar and multisequence MR images of the abdomen were obtained without intravenous contrast administration as per MRCP protocol. T1-weighted images were then acquired following intravenous administration of 8 mL of Gadavist contrast. COMPARISON: CT abdomen and pelvis dated 04/08/2020. FINDINGS: MRCP: The biliary tree is normal in caliber with no evidence of dilation or filling defect to indicate stone or tumor. Pancreatic duct is normal in course and caliber with no dilation or side branching cysts. LIVER: There are multiple T2 hyperintense lesions measuring 0.4 cm or less, the majority of which are favored to be tiny simple cysts. However, in segment 7, there is a 0.5 cm lesion that demonstrates an enhancement pattern consistent with hemangioma. No other enhancing mass. No ascites. GALLBLADDER: Fluid-filled gallbladder. No filling defect to indicate [...] residual inflammation. No clear evidence of enhancing mass. SPLEEN: Normal size, configuration and with homogenous signal intensity. ADRENAL GLANDS: Normal in size and configuration. KIDNEYS: No hydronephrosis, stone, or renal mass. GI TRACT: Visible bowel loops are normal in course and caliber with no bowel wall thickening or dilation. Small amount of stool is present within the large bowel. LYMPH NODES: No pathologic lymphadenopathy. ABDOMINAL WALL: Abdominal wall demonstrates no fat stranding or fluid collection. BONES: The visualized osseous structures demonstrate normal signal intensity. LUNG BASES: No pleural effusion or consolidation. HEART AND VASCULATURE: The heart and pericardium are normal in size and configuration with no pericardial effusion. Abdominal aorta and its main branches are normal. IMPRESSION: 1. Mild subtle delayed enhancement in t he pancreatic tail which is favored to be due to mild to moderate inflammatory change, and consistent with history of recent pancreatitis. 2. Nodular component at the pancreatic tail, similar to appearance on prior CT. Presentation of this nodule is not entirely clear and the possibility of small pancreatic mass cannot be excluded. Other considerations include splenule or volume averaging of adjacent splenic artery. Follow-up MR imaging in 3-6 months is recommended for further clarification. 3. Tiny hepatic hemangioma in segment 7 . 4. Tiny T2 bright lesions scattered thr oughout the liver favored to be simple hepatic cysts. END IMPRESSION Performing Organization Address City/State/Zipcode Ph one Number [facility] [address] [place] [address] documented in this encounter Visit Diagnoses Diagnosis Idiopathic chronic pancreatitis documented in this encounter
--- OUTSIDE RECORDS SUMMARY | 2020-06-26 08:58 | CCD | Summary of Care ---
Author Author [facility] Organization [facility] Address Unknown Phone Unavailable Care Team Providers Care Adobe Maker Name Role Phone PCP Unavailable Reason for Referral * Diagnostic Radiology (STAT) Referred By Contact Referred To Contact Status Reason Specialty Diagnoses / Procedures Silvia Ruiz, MOTEL MAID [address] [address] Email: [email or web address] Authorized Radiology Diagnoses Idiopathic chronic pancreatitis P rocedures MR Abdomen with and without Contrast Reason for Visit * Diagnostic Radiology (STAT) Referred By Contact Referred To Contact Status Reason Specialty Diagnoses / Procedures Silvia Ruiz NP [address] [address] Email: [email or web address] Authorized Radiology Diagnoses Idiopathic chronic pancreatitis P rocedures MR Abdomen with and without Contrast Encounter Details Care Team Description Date Type Department Idiopathic chronic pancreati tis 05/08/2020 [facility] MRI [id number] Encounter [address] [place] [address] Allergies Comments Active Allergy Reactions Severity Noted Date Penicillins Anaphylaxis High 05/03/2020 documented as of this encounter (statuses as of 05/09/2020) Medications No known medicationsdocumented as of this encounter (statuses as of 05/09/2020) Active Problems Not on filedocumented as of this encounter (statuses as of 05/09/2020) Social History Date Tobacco Use Types Packs/Day [...] of this encounter Last Filed Vital Signs Not on filedocumented in this encounter Plan of Treatment Date/Time Name Type Priority Associated Diag noses 05/08/2020 1:08 PM EST MR Abdomen with and Imaging STAT Idiopathic chronic without Contrast pancreatitis Order Schedule Name Type Priority Associated Diag noses As Needed for 1 Occurrences starting 09/2020 until 05/08/2020 MR Abdomen with and Imaging STAT Idiopathic chronic without Contrast pancreatitis Health Maintenance Due Date Last Done Comments MMR Vaccines (1 of - 10/14/1980 Standard series) Varicella Vaccines (1 of 10/14/1980 2 - 2-dose childhood series) DTaP,Tdap,and Td Vaccines 10/14/1986 (1 - Tdap) HIV Screening 10/14/1992 Influenza Vaccine 02/02/2020 Pneumococcal Vaccine: 65+ 10/14/2044 Years (1 of - PPSV23) HIB Vaccines Aged Out No [...] Years) documented as of this encounter Results Not on filedocumented in this encounter Visit Diagnoses Diagnosis Idiopathic chronic pancreatitis documented in this encounter Administered Medications Action Date Dose Rate Site Medication Order MAR Action 05/08/2020 1:05 PM EST 8 mLs gadobutrol (GADAVIST) contrast injection Given 7.5 mL 7.5 mL (rounded from 7.94 mL = 0.1 mL/k g 79.4 kg), Intravenous, 1 TIME IMAGING, 05/08/20 at 1315, For 1 dose, Imaging Protocol, Do not mix or administer in the same IV line with other medications., documented in this encounter
--- OUTSIDE RECORDS SUMMARY | 2020-06-26 08:58 | CCD | Summary of Care ---
Author Author [facility] Organization [facility] Address Unknown Phone Unavailable Care Team Providers Care Joint Maker Machine Name Role Phone Pcp, No PCP Unavailable Reason for Visit * Reason Comments Follow-up Encounter Details Care Team Description Date Type Department Mansi Martins NP [address] [facility] Room [address] [place] [id number] Idiopathic chronic pancreatitis (Primary Dx) 06/08/2020 Telemedicine [address] [address] [address] Allergies Comments Active Allergy Reactions Severity Noted Date Penicillins Anaphylaxis High 05/03/2020 documented as of this encounter (statuses as of 06/08/2020) Medications No known medicationsdocumented as of this encounter (statuses as of 06/08/2020) Active Problems Not on filedocumented as of this encounter (statuses as of 06/08/2020) Social History Date Tobacco Use Types Packs/Day Years Used Former Smoker Cigarettes 0.5 10 Smokeless Tobacco: Chew Current User Drinks/Week oz/Week Comments Alcohol Use Yes Sex Assigned at Date Recorded Not on file documented as of this encounter Last Filed Vital Signs Not on filedocumented in this encounter Progress Notes * Mansi Martins NP - 06/08/2020 8:30 AM EST SUBJECTIVE: The patient is a 39 year old gentleman [place] the [place] who was seen in initial consultation on 04/30/20 for idiopathic acute on chronic pancreatitis w ith index episode in 2019 with at least 10 episodes since. He has been hospitali zed at times for this, or has responded to treatment at home with self imposed g ut rest. No triggers have been identified. He does not abuse alcohol, has no ev idence of gallstones, he has no family history of pancreatitis, and his IgG4 and triglycerides are normal. We sent him for a high resolution MRI that was done and revealed a nodularity at the tail with faint delayed enhancement. Overall, the patient has been feeling good. He reports one mild episode that occurred e arlier this week after drinking coffee he developed abdominal pain and vomited. This was short-lived and the pain resolved by the end of the day. He tells me he is not even sure if it was really an episode or something else. Aside from t hat, his appetite is good and his weight has been steady. His bowels have been regular and he denies any oily or greasy stools. This is a tele-medical visit. The patient [...] spent on this evaluation today: 30 minutes OBJECTIVE: On 05/08/2020 ALLERGIES: Allergies Allergen Reactions Penicillins Anaphylaxis MEDICATIONS: No current outpatient medications on file. PHYSICAL EXAMINATION: VITAL SIGNS: There were no vitals taken for this visit. There is no height or we ight on file to calculate BMI. GENERAL APPEARANCE: The patient is well developed, well nourished and in no acut e distress. PSYCHOLOGICAL: Alert and oriented to person, place and time. Affect and mood ar e appropriate and congruent. Signed Date/Time Phone Pager JENNIFERABIGAIL Lizy 05/09/2020 13:03 Study Result INDICATION: 39-year-old male with hx of idiopathic pancreatitis. R/o underlying process. TECHNIQUE: Multiplanar and multisequence MR images of the abdomen were obtained without intravenous contrast administration as per MRCP protocol. T1-weighted i mages were then acquired following intravenous administration of 8 mL of Gadavis t contrast. COMPARISON: CT abdomen and pelvis dated 04/08/2020. FINDINGS: MRCP: The biliary tree is normal in caliber with no evidence of dilation or fill ing defect to indicate stone or tumor. Pancreatic duct is normal in course and c aliber with no dilation or side branching cysts. LIVER: There are multiple T2 hyperintense lesions measuring 0.4 cm or less, the majority of which are favored to be tiny simple cysts. However, in segment 7, th ere is a 0.5 cm lesion that demonstrates an enhancement pattern consistent with hemangioma. No other enhancing mass. No ascites. GALLBLADDER: Fluid-filled gallbladder. No filling defect to indicate gallstone, polyp, tumor or sludge. PANCREAS: The pancreas is normal in size and configuration. Of note is that the distal most tail is nodular in configuration (axial postcontrast image 30, out o f phase T1 axial image 18. While this may be part of the pancreas that is inflam ed, the possibility of small pancreatic mass cannot be entirely excluded. The pr esentation is not entirely clear and other considerations include splenule and v olume averaging with the adjacent splenic artery. No pancreatic ductal dilation or peripancreatic edema. There is faint delayed enhancement of the pancreatic ta il, favored to be postinflammatory in nature and [...] in course and caliber with no bowel wal l thickening or dilation. Small amount of stool is present within the large yanick l. LYMPH NODES: No pathologic lymphadenopathy. ABDOMINAL WALL: Abdominal wall demonstrates no fat stranding or fluid collection . BONES: The visualized osseous structures demonstrate normal signal intensity. LUNG BASES: No pleural effusion or consolidation. HEART AND VASCULATURE: The heart and pericardium are normal in size and configur ation with no pericardial effusion. Abdominal aorta and its main branches are no rmal. IMPRESSION: 1. Mild subtle delayed enhancement in the pancreatic tail which is favored to b e due to mild to moderate inflammatory change, and consistent with history of re cent pancreatitis. 2. Nodular component at the pancreatic tail, similar to appearance on prior CT. Presentation of this nodule is not entirely clear and the possibility of small pancreatic mass cannot be excluded. Other considerations include splenule or vol ume averaging of adjacent splenic artery. Follow-up MR imaging in 3-6 months is recommended for further clarification. 3. Tiny hepatic hemangioma in segment 7. 4. Tiny T2 bright lesions scattered throughout the liver favored to be simple h epatic cysts. END IMPRESSION Scans on Order [id number] - MR Abdomen with and without Contrast Scan on 05/08/2020 12:32 PM by Carly Reese, RT: MR ASSESSMENT AND PLAN: This is a 39-year-old gentleman with idiopathic acute on ch ronic pancreatitis. He has had 1 mild episode of pain in the last 2 to 3 months . Recent MRI is consistent with inflammatory changes and shows some nodularity at the tail. We will review the images at tumor board to exclude any underlying mass. I will notify the patient with the consensus of the group. At minimum, an MRI will be repeated in 3 months. Patient is agreeable with this plan and he knows to call us in the interim with any symptoms or concerns. Mansi Martins, MSN, ANP-C Nurse Practitioner Surgical Oncology Hepatobiliary and [place] [address] [phone] documented in this encounter Plan of Treatment [...] encounter Visit Diagnoses Diagnosis Idiopathic chronic pancreatitis - Prima ry documented in this encounter
--- OUTSIDE RECORDS SUMMARY | 2020-06-26 09:11 | CCD ---
Author Author [facility] Organization [facility] Address Unknown Phone Unavailable Care Team Providers Care Casino Dealer Name Role Phone Jak Mariee MD Unavailable [...] Jaylene, Jak Parra MD Unavailable Unavailable Jaylene, Jka Parra MD Unavailable Unavailable Jaylene, Jak Parra MD Unavailable Unavailable Jaylene, Jak Parra MD Unavailable Unavailable Jaylene, Jak Parra MD Unavailable Unavailable Jaylene, Jak Parra MD Unavailable Unavailable Jaylene, Jak Parra MD Unavailable Unavailable Jaylene, Jak Parra MD Unavailable Unavailable Jaylene, Jak Parra MD Unavailable Unavailable Lakshmi, A Mansi UTILITY BAGGER Unavailable Unavailable Phoenix, A Mansi UTILITY BAGGER Unavailable Unavailable Lakshmi, A Mansi UTILITY BAGGER Unavailable Unavailable Lakshmi, A Mansi UTILITY BAGGER Unavailable Unavailable Lakshmi, A Mansi UTILITY BAGGER Unavailable Unavailable Lakshmi, A Mansi UTILITY BAGGER Unavailable Unavailable Lakshmi, A Mansi UTILITY BAGGER Unavailable Unavailable Lakshmi, A Mansi UTILITY BAGGER Unavailable Unavailable Lakshmi, A Mansi UTILITY BAGGER Unavailable Unavailable Phoenix, A Mansi UTILITY BAGGER Unavailable Unavailable Lakshmi, A Mansi UTILITY BAGGER Unavailable Unavailable Lakshmi, A Mansi UTILITY BAGGER Unavailable Unavailable Lakshmi, A Mansi UTILITY BAGGER Unavailable Unavailable Lakshmi, A Mansi UTILITY BAGGER Unavailable Unavailable Lakshmi, A Mansi UTILITY BAGGER Unavailable Unavailable Phoenix, A Mansi UTILITY BAGGER Unavailable Unavailable Lakshmi, A Mansi UTILITY BAGGER Unavailable Unavailable Phoenix, A Mansi UTILITY BAGGER Unavailable Unavailable Lakshmi, A Mansi UTILITY BAGGER Unavailable Unavailable Lakshmi, A Mansi UTILITY BAGGER Unavailable Unavailable Phoenix, A Mansi UTILITY BAGGER Unavailable Unavailable Lakshmi, A Mansi UTILITY BAGGER Unavailable Unavailable Phoenix, A Mansi UTILITY BAGGER Unavailable Unavailable Lakshmi, A Mansi UTILITY BAGGER Unavailable Unavailable Phoenix, A Mansi UTILITY BAGGER Unavailable Unavailable Phoenix, A Mansi UTILITY BAGGER Unavailable Unavailable Lakshmi, A Mansi UTILITY BAGGER Unavailable Unavailable Phoenix, A Mansi UTILITY BAGGER Unavailable Unavailable Lakshmi, A Mansi UTILITY BAGGER Unavailable Unavailable Lakshmi, A Mansi UTILITY BAGGER Unavailable Unavailable Phoenix, A Mansi UTILITY BAGGER Unavailable Unavailable Lakshmi, A Mansi UTILITY BAGGER Unavailable Unavailable Phoenix, A Mansi UTILITY BAGGER Unavailable Unavailable Phoenix, A Mansi UTILITY BAGGER Unavailable Unavailable Phoenix, A Mansi UTILITY BAGGER Unavailable Unavailable Phoenix, A Mansi UTILITY BAGGER Unavailable Unavailable Phoenix, A Mansi UTILITY BAGGER Unavailable Unavailable DIEKELizy BURNHAM Unavailable Unavailable JUDY, [...] is protected by Article 27-F of the [facility] Public Health law. If you continue you may have access to information: Regarding HIV / AIDS; Provided by facilities licensed or operated by the [facility] Office of Mental Health; or Provided by the [facility] Office for People With Developmental Disabilities. If such information is present, then the following [facility] mandated warning applies: This information has been [...] law may result in a fine or alf sentence or both. A general authorization for the release of medical or other information is NOT sufficient authorization for further disc losure. Allergies and Adverse Reactions Type Description Substance Reaction Status Data Source(s ) Drug Class PENICILLINS Penicillin Anaphylaxis [facility] Encounters Encounter Providers Location Date Indications Data Source(s ) Outpatient 09/07/2020 12:00:00 AM [facility] Outpatient Attender: RASHEED VILLALTA [id number] 06/14/2020 01 :49:33 PM [facility] Outpatient Attender: Mansi Martins NP [id number] 06/08/2020 12:00:00 AM EST [facility] Outpatient Referrer: RASHEED VILLALTA 05/08/2020 12 :00:00 AM EST Other chronic pancreatitis [facility] Other chronic pancreatitis Outpatient Attender: JAVIER JUDY [id number] 05/03/20 12:00:00 AM EST - 05/03/2020 08:27:06 AM EST Other chronic pancreatitis [facility] Other chronic pancreatitis Outpatient Attender: Fidel Mariee MD Main Office 02/28/2020 09:15:00 AM EDT [facility] ([facility]) Outpatient Attender: Fidel Mariee MD Main Office 11/17/2019 11:00:00 AM EDT [facility] ([facility]) Outpatient 06/28/2019 09:23:00 AM EST [facility] Radiology Imaging Medications Medication Brand Name Start Date Product Form Dose Route Admi nistrative Instructions Pharmacy Instructions Status Indications Reaction Description Data Source(s) gadobutrol (GADAVIST) contrast injection 7.5 mL 57080 05/08/2020 01:15:00 PM EST 0.1 mL/kg Intravenous completed 7.5 mL (rounded from 7.94 mL = 0.1 mL/kg 79.4 kg), Intravenous, 1 TIME IMAGING, 05/08/20 at 1315, For 1 dose, Imaging Protocol
Do not mix or administer in the same IV line with other medica tions.
[facility] Medication administered onsite Amylases 09319 UNT / Endopeptidases 3800 0 UNT / Lipase 29684 UNT Delayed Release Oral Capsule [Creon] Creon 02/28/2020 12:00:00 AM EDT ORAL active [facility] ([facility]) No Active Medications 11/17/2019 12:00:00 AM EDT completed [facility] ([facility]) Insurance Providers Payer name Policy type / Coverage type Policy ID Covered green party ID Covered green party's relationship to martinez Policy Martinez Plan Information [facility] ACTIVE DUTY [id number] SP [id number] [facility] [id number] Self [id number] [employer] [facility] REG O [id number] S [id number] [facility]P [id number] 18 [id number] Problems, Conditions, and Diagnoses Code Display Name Description Problem Type Effective Dates Data Source(s) 66272692 Pancreatitis Pancreatitis Problem 11/17/2019 12:00:00 A M EDT [facility] ([facility]) K86.1 Other chronic pancreatitis Other chronic pancreatitis Diagnosis 05/08/2020 11:26:18 AM [facility] Results ID Date Data Source [id number] 06/14/2020 01:49:33 PM [facility] Name Value Range Interpretation Code Description Data Josiane rce(s) Supporting Document(s) Progress Note [facility] AAIRFt7aQfUCKqNs05/RARapYUNjp5KiKRzoQBh9YXugKCPyR8KcZXU2lT5lRTC9JKaZBiZvFdGfDaEx lbm [file] 6Rl6BvmmD8pkNqZOgdRFI2Ru6HQWBLE7LMWf== ID Date Data Source [id number] 06/08/2020 08:48:53 AM EST [facility] Name Value Range Interpretation Code Description Data Josiane rce(s) Supporting Document(s) Progress Note [facility] SGDGDq6qXjOQLgZg39/WKNzkPUHbv0WeYYgeVRh7WVzcDZNwH6XtGPY9tN9wWII8EOhOUrAbAwQtKmE3 lbm [file] ufkj//Ejoi7u9spyyf8fOfp2dApfbca6f+Imptu0Fo nKSgngy4TV0gOy/P/vkggg2uxj6Ydwyaz3GpiewhsfpqOZ/rzXRyMD3/9nmhjdxv1lrPIQT5p0j/ent9 4qpbRHHSXSKnsvqmvaoRnchBceNoF7VDl67Y/uUmo9c9TTTgl5bmWx4d2XjjsgWA0yEqRc3p14+TjXHy kjzI1fOigeb0KmP1XALlda5edPhPxF1asZnUG7vpyG AVPWu9TPmN9UeupINv/7q6I50v3nia27lB0xlY3kM5IjecKh2lLwrv4HCy9jNMSyFuRyzGDqtVNLqw7n 1f7wT757Dx6pJihRdaBUvdvpR3JJslO8m7YngOMrK32QX2HRm1ep6fEE+gUDsNYz1DYFpmfocqv6uqqn mB5RfQx1N8GXcRJa3p4YSCqzjQJUqqtKS0m3KJ6QLG ls0kyIq6FhlckDFAA0QOO9ZclNcVYSs3SYclol3d7MH5/iV8w9lPV8WskSelFppYm9FXh8H2v9p7Sfub +a44yUlqp/AbnzgzUjpg4GfqhONjeHf4BDWcIIbcw8CwqlCCPRAWl8c4nFzvAH2rt3K39N+cLKajvgaF I2hepMpvETw98dgDq4IvPXVqwr2RcPg4QHwE09hYFh Nakul/Wr9Dq438/veneer jointer helper+nzFWg6zBrH8eu810ZeXu+wr/kw44JI9IiRUZWyB7ChBd6Y+Rcb22+fb21uP+7npE [file] XSANCj4+OTvfzBDxwKchCHGGSyQ7PKA8RPixLUXCMu8D ID Date Data Source [id number] 05/13/2020 03:38:57 PM [facility] Name Value Range Interpretation Code Description Data Josiane rce(s) Supporting Document(s) Progress Note [facility] GNSERd0jYnCLWeLv36/IPBujIPRhd6KaOAauHSb6MEaaWIQdA4UqJNL7bN6nBGG8LLyTQmUgAqNuTIFk lbm [file] AgICAgICAgICAgICAgICAgICAgICAgICAgICAgICAg ICAgICAgICAgICAgICAgICAgICAgICAgICAgICAgICAgICAgICAgICAgICAgICAgICAgICAgICAgICAg UCUfHJKuIK9KMHAlFROnPTRnTKKeLAQkPBXdFQQrYEFaRCMlDBZdJJQsJJIsNCEyDUVtZYDlWGXoBJRp ICAgICAgICAgICAgICAgICAgICAgICAgICAgICAgIC ViZOAkLVApWJOqLJLzSIFtLF5CQQSlODMiNZPwFVKzQTJrUFUiMDEsPCHzYLZcIHEcISOaPWMnKYFsSN AgICAgICAgICAgICAgICAgICAgICAgICAgICAgICAgICAgICAgICAgICAgICAgICAgICAgICAgICAgIA 0KICAgICAgICAgICAgICAgICAgICAgICAgICAgICAg ICAgICAgICAgICAgICAgICAgICAgICAgICAgICAgICAgICAgICAgICAgICAgICAgICAgICAgICAgICAg DXGiNXJuCWVeNO2OOJSnFFGtHXElADHpBZRxLYXrEOQfHRQpWMQeMCOrCPDrRPRmRXPtLYAoNNNfBQCw ICAgICAgICAgICAgICAgICAgICAgICAgICAgICAgIC TwRGBdAGRfHHFdGWHoMMCbKBQyWB7VHETmEWPtAAOqYFCrGCNdXKOdCTDaPCOiLQQcKDOpCXEpFPDlGN AgICAgICAgICAgICAgICAgICAgICAgICAgICAgICAgICAgICAgICAgICAgICAgICAgICAgICAgICAgIC KhRN4ALPUzUPPcENNgDPGzEFWeJEXvQVKsREObVXSs ICAgICAgICAgICAgICAgICAgICAgICAgICAgICAgICAgICAgICAgICAgICAgICAgICAgICAgICAgICAg WLXaUSScNTIdUPIcXE6PMQOxVAGqOESoUYEqPNBmBEJzDKAjFLBaMPAkTSFrNKXeDJZhJWJtMPHrWGAn ICAgICAgICAgICAgICAgICAgICAgICAgICAgICAgIC GoVJLaSXOdKENrMCRbZJSnLTVtJATuMO9SBVOcJILoZBWjOVYeIPTxZGVcUZCnKUZmBEZnFFIeSKXiTA AgICAgICAgICAgICAgICAgICAgICAgICAgICAgICAgICAgICAgICAgICAgICAgICAgICAgICAgICAgIC OfYUPaHX2ATI63hAPdk3P5ZMQwWP8jbfa/Pz0FOQek wnQwtVSbSR7DJaPeXC0elt3HXoRfKT3wgz9KAGjQFjXzL2A3rKWpOKQfZYWCYyVsX62hLNyqGo18QAnf PRUyPzUmLIe0Ru8MCwYeJ3vmYMSzGcV9KKDiXvM8EQEzDkTvFKbhPH9Qm7ZwzGHoDJl+Wj9QCJ0fy7Fy UWpbKiAjGU7qbt4INHqAGrWoA0YcpsT1FPC4EFCmJw 8NWLEpLIBlgTCoMQMuIURJUvBvA8NtiZ55VQRAUy5+EQapojVkPsuUNpB4KUMvk2WaABl8TM0GBBHePE x5tCBiQDCrH7Qxr1AdLa91ZXYhSbqlL2Uqn8KuthNREVzwaLc6FXDPLQLuxTCvMh6fRT4lTBLeMGPjTm NaSSJAUC0NKGHiVFWmsSMuLDVmTNEYJW1SBBomCDN1 PSPykaNnaFInLYsvGD6TNBYfwmMdFermSFAXBPn+Rv8DDJ1zo3AuKEhlHVKrJA1ayi3FONzWHlQmW1U9 lLAvX6E7ERojQj1YRZUwYOEaTjBlZECDKOdaNL3JFC9byzN7MI0CsXMcQPNlWJWpdNQeOXb6I64qtTFr ROuiQX5OJVW+Inocencia+Pt8LNJPqCDJcJZNhUpBmQTSYTw VlH0XhO0VEa6EsM4ItHX60tLhpwlMpYQxuUH5GNU5wHMTrJRYZYY2MlIAcrB4zwoPfTcEiRJDPWhKiR6 4bkBZlWAAkDXX4DMOvVc3HLBTeK8UsqrMffDzmycEnGTAdCKXQFF1JQLmlcgYquQUmrNduCU42bGdvIR 1KMy9GOmAwMV5djh7DiZBwBr9JKAVtMX2SZFBoDBLp SHVaDHY8SYDhYyPhEFizFXHwIQVaKUU8REUgBBAcCN7GDaUiGMYoYeIqAVSmYHSeQKBoza1LFZSyDDNq RNd2PGDhXZTjAFMyTXloGODrCROnKJQ2PZCcHHIeLE9HRzBpJTJkNYB3EhSrPDWkHBNlod6JBZRsJUBv ICR4IQIrISAtBRRmBVceKLRmSME0DiAtUIXkQGNbXY 2BAzMfUGMxADJ2KSZhLEPqXVTvoy2QXBOnCRFxScAiVlRgBHNzKBOsMTuzVBRvMYM4JrG2TQTyOGAmFM 2KWpCwZYGrHRW1AJFhHNMvAOBndz9SCDVdSDVnRos7JPWiUCZiTQBrGDesAVKlWLA4QNAvWCJtAEBdUI 9QLwDsDDLaLNqxRealWKMfHSHpdm8EJMStPWHxALO3 YYQvOUZgWRJyDCdfEGSyJJC1BBNrQYBvZQXrPZ6SApKjSYUlZqWfZMtgAAUnWTCizo5VEDReMNMqKTS4 SBDfMZMqVOOlOQwnOKWoRGIfHKN2GJSxJLHvFH7TFoScJTJdRjLsYXzqYLSaPNPxmb5KVQTsPBVgECS0 LyHbZPIgRIHjYBtjIMLzYXWaDcG4QSFvSTTfUM0WCp GzZBZqBmY8CkMyMLXoYVDafj4TYZIdOXPxDqsiBDOkNWUxHBXgAGhuGXDxOZUiETipYRLuONSoOZ1XBe PtLCNlKpB8LwKqGIUaPOSwyl8WDBEdATNnNVb2KIIyKFBxSEEgGYrgUHLpOWU2KTY3TWYcHBSqGZ5JFr XpJVYyXeJgAFLpRNSzNYNsyc9AdZRpdQyrqc0DTImU Gq8MaEczODKaTDxpMn9zmTZnHUVpSIJHIt0BrpSrZGFgCZCAABvkIXJrJOBjToFoOBr5LWWmJQJpAVYs CDDcWNCeVXSqOsAbKDkzMaY6BJM9QIDaSLuxSELrJBU7ASBgAYUhDHJvP6YoKGR6YfS+YA5tDBw+Pg0K o5MsfjZ2qoAlSRkwVXKiJH5GQXMKX2BUWb== ID Date Data Source [id number] 05/13/2020 03:24:00 PM [facility] Name Value Range Interpretation Code Description Data Josiane rce(s) Supporting Document(s) Progress Note [facility] ZWEDLa2sTpNHTfNq78/OSOpmTAYrl1FeWWrbKMq9NIflQYItO6JxNDY8lJ4vGNH3RLuCLgQbMtJwDBOa lbm [file] ZYxXHBlwFAG9oEksQCtu+J/hO/Medical Instrument Cable Fabricator+cEAdi81A9srRZ [file] YzZmYmI+DW2nGCw+Jf3Sf3KwzoP1feSjFAukMXUlKK2TVMLER8AIJt== ID Date Data Source [id number] 05/09/2020 01:06:07 PM [facility] MR ABDOMEN WITH AND WITHOUT CONTRAST 741 [...] rce(s) Supporting Document(s) ID Date Data Source [id number] 11/30/2019 02:32:00 PM EDT [facility] ([facility]) Name Value Range Interpretation Code Description Data Josiane rce(s) Supporting Document(s) Elastase.pancreatic [Mass/mass] in Stool Laboratory test result [facility] [facility] Procedure Social History Code Duration Value Status Description Data Source(s ) Alcohol intake 06/08/2020 12:00:00 AM EST Current drinker of al cohol (finding) completed Current drinker of alcohol (finding) [facility] Tobacco use and exposure 06/08/2020 12:00:00 AM EST Current user co mpleted Current user [facility] Cigarette pack-years 06/08/2020 12:00:00 AM EST UNK [facility] Cigarettes smoked current (pack per day) - Reported 06/08/19 12:00:[address] [facility] Smoking 06/08/2020 12:00:00 AM EST Former smoker completed Former smoker [facility] Alcohol intake 05/03/2020 12:00:00 AM EST Current drinker of al cohol (finding) completed Current drinker of alcohol (finding) [facility] Vital Signs ID Date Data [...] [facility]) 5'7" ID Date Data Source [id number] 05/13/2020 03:38:57 PM [facility] Hospital Name Value Range Interpretation Code Description Data Source(s) WEIGHT RECORDED 175 lb 175 lb [facility] Body height Measured 67 in 67 in [facility]
[2020-06-26] MEDS ORDERED: NS 1,000 ML IV ONE ×2 (09:30→13:00)
[2020-06-26] MEDS ORDERED: HYDROMORPHONE HCL 0.5 MG/ 0.5 ML SYRINGE (J1170 PER 1) IV ONE ×2 (09:30→13:00)
[2020-06-26] MEDS ORDERED: ONDANSETRON 4MG/2ML VIAL IV ONE (09:30)
[2020-06-26] MEDS ORDERED: ONDA4TAB6 PO (09:48)
[2020-06-26] MEDS ORDERED: OXYC-517 PO (09:48)
[2020-06-26 10:01] LABS: BASO % 0.2 % (0.0-1.0); EOS # 0.1 10^3/uL (0.0-0.5); EOS % 0.8 % (0.0-3.0); HEMATOCRIT 40.7 % (42.0-52.0); HEMOGLOBIN 13.5 g/dl (13.5-17.5); LYMPH # 1.2 10^3/uL (1.5-5.0); LYMPH % 12.5 % (24.0-44.0); MEAN CORPUSCULAR HEMOGLOBIN 28.8 pg (27.0-33.0); MEAN CORPUSCULAR HGB CONC 33.2 g/dl (32.0-36.5); MONO # 0.6 10^3/uL (0.0-0.8); MONO % 6.6 % (2.0-8.0); NEUTROPHILS # 7.3 10^3/uL (1.5-8.5); NEUTROPHILS % 79.5 % (36.0-66.0); PLATELET COUNT, AUTOMATED 195 10^3/uL (150-450); RED BLOOD COUNT 4.68 10^6/uL (4.30-6.10); WHITE BLOOD COUNT 9.2 10^3/uL (4.0-10.0)
[2020-06-26 10:24] LABS: ALT/SGPT 28 U/L (12-78); AMYLASE 49 U/L (25-115); BILIRUBIN,DIRECT 0.1 MG/DL (0.0-0.2); BILIRUBIN,TOTAL 0.9 MG/DL (0.2-1.0); BLOOD UREA NITROGEN 12 MG/DL (7-18); CALCIUM LEVEL 9.8 MG/DL (8.5-10.1); CARBON DIOXIDE LEVEL 24 MEQ/L (21-32); CHLORIDE LEVEL 100 MEQ/L (98-107); CREATININE FOR GFR 1.01 MG/DL (0.70-1.30); GLOMERULAR FILTRATION RATE > 60.0 (>60); GLUCOSE, FASTING 125 MG/DL (70-100); LIPASE 790 U/L (73-393); POTASSIUM SERUM 3.7 MEQ/L (3.5-5.1); SODIUM LEVEL 136 MEQ/L (136-145); TOTAL PROTEIN 7.2 GM/DL (6.4-8.2)
[2020-06-26] MEDS ORDERED: ISOVUE-370 76% 100ML VIAL As Ordered ONE (16:36)
[2020-06-26] MEDS ORDERED: ONDANSETRON 4MG/2ML VIAL IV PRN (16:45)
[2020-06-26] MEDS ORDERED: HYDROmorphone HCL 2 MG/ML 1ML VIAL (J1170) IV PRN (16:45)
--- OUTSIDE RECORDS SUMMARY | 2020-06-26 16:49 | CCD ---
Author Author [facility] Organization [facility] Address Unknown Phone Unavailable Care Team Providers Care Manager Purchasing Name Role Phone Jak Mariee MD Unavailable [...] Jak Parra MD Unavailable Unavailable Jaylene, Jak Parar MD Unavailable Unavailable Jaylene, Jak Parra MD Unavailable Unavailable Jaylene, Jak Parra MD Unavailable Unavailable Jaylene, Jak Parra MD Unavailable Unavailable Jaylene, Jak Parra MD Unavailable Unavailable Lakshmi, A Mansi [employer] Unavailable Unavailable Payette, A Mansi [employer] Unavailable Unavailable Lakshmi, A Mansi [employer] Unavailable Unavailable Lakshmi, A Mansi [employer] Unavailable Unavailable Lakshmi, A Mansi [employer] Unavailable Unavailable Lakshmi, A Mansi [employer] Unavailable Unavailable Lakshmi, A Mansi [employer] Unavailable Unavailable Lakshmi, A Mansi [employer] Unavailable Unavailable Lakshmi, A Mansi [employer] Unavailable Unavailable Payette, A Mansi [employer] Unavailable Unavailable Lakshmi, A Mansi [employer] Unavailable Unavailable Lakshmi, A Mansi [employer] Unavailable Unavailable Lakshmi, A Mansi [employer] Unavailable Unavailable Lakshmi, A Mansi [employer] Unavailable Unavailable Lakshmi, A Mansi [employer] Unavailable Unavailable Payette, A Mansi [employer] Unavailable Unavailable Lakshmi, A Mansi [employer] Unavailable Unavailable Payette, A Mansi [employer] Unavailable Unavailable Lakshmi, A Mansi [employer] Unavailable Unavailable Lakshmi, A Mansi [employer] Unavailable Unavailable Payette, A Mansi [employer] Unavailable Unavailable Lakshmi, A Mansi [employer] Unavailable Unavailable Payette, A Mansi [employer] Unavailable Unavailable Lakshmi, A Mansi [employer] Unavailable Unavailable Payette, A Mansi [employer] Unavailable Unavailable Payette, A Mansi [employer] Unavailable Unavailable Lakshmi, A Mansi [employer] Unavailable Unavailable Payette, A Mansi [employer] Unavailable Unavailable Lakshmi, A Mansi [employer] Unavailable Unavailable Lakshmi, A Mansi [employer] Unavailable Unavailable Payette, A Mansi [employer] Unavailable Unavailable Lakshmi, A Mansi [employer] Unavailable Unavailable Payette, A Mansi [employer] Unavailable Unavailable Payette, A Mansi [employer] Unavailable Unavailable Payette, A Mansi [employer] Unavailable Unavailable Payette, A Manis [employer] Unavailable Unavailable Payette, A Mansi [employer] Unavailable Unavailable Lizy VILLALTA Unavailable Unavailable Akshat KIM Unavailable Unavailable Re-disclosure Warning The records that [...] is protected by Article 27-F of the [facility] Public Health law. If you continue you may have access to information: Regarding HIV / AIDS; Provided by facilities licensed or operated by the [facility] Office of Mental Health; or Provided by the [facility] Office for People With Developmental Disabilities. If such information is present, then the following [facility] mandated warning applies: This information [...] law may result in a fine or fpc sentence or both. A general authorization for the release of medical or other information is NOT sufficient authorization for further disc losure. Allergies and Adverse Reactions Type Description Substance Reaction Status Data Source(s ) Drug Class PENICILLINS Penicillin Anaphylaxis [facility] Encounters Encounter Providers Location Date Indications Data Source(s ) Outpatient 09/07/2020 12:00:00 AM [facility] Outpatient 06/26/2020 01:30:00 PM EST acute block creatitis [facility] acute pancreatitis Outpatient Attender: RASHEED VILLALTA [id number] 06/14/2020 01 :49:33 PM [facility] Outpatient Attender: Mansi Martins GALINA [id number] 06/08/2020 12:00:00 AM [facility] Outpatient Referrer: RASHEED VILLALTA 05/08/2020 12 :00:00 AM EST Other chronic pancreatitis [facility] Other chronic pancreatitis Outpatient Attender: JAVIER JUDY [id number] 05/03/20 12:00:00 AM EST - 05/03/2020 08:27:06 AM EST Other chronic pancreatitis [facility] Other chronic pancreatitis Outpatient Attender: Fidel Mariee MD Main Office 02/28/2020 09:15:00 AM EDT [facility] ([facility]) Outpatient Attender: Fidel Mariee MD Main Office 11/17/2019 11:00:00 AM EDT [facility] ([facility]) Outpatient 06/28/2019 09:23:00 AM [facility] Imaging Medications Medication Brand Name Start Date Product Form Dose Route Admi nistrative Instructions Pharmacy Instructions Status Indications Reaction Description Data Source(s) gadobutrol (GADAVIST) contrast injection 7.5 mL [id number] 05/08/2020 01:15:00 PM EST 0.1 mL/kg Intravenous completed 7.5 mL (rounded from 7.94 mL = 0.1 mL/kg 79.4 kg), Intravenous, 1 TIME IMAGING, 05/08/20 at 1315, For 1 dose, Imaging Protocol
Do not mix or administer in the same IV line with other medica tions.
[facility] Medication administered onsite Amylases 71225 UNT / Endopeptidases 3800 0 UNT / Lipase 77694 UNT Delayed Release Oral Capsule [Creon] Creon 02/28/2020 12:00:00 AM EDT ORAL active [facility] ([facility]) No Active Medications 11/17/2019 12:00:00 AM EDT completed [facility] ([facility]) Insurance Providers Payer name Policy type / Coverage type Policy ID Covered alliance party ID Covered alliance party's relationship to martinez Policy Martinez Plan Information [facility] ACTIVE DUTY [id number] SP [id number] U [id number] Self [id number] [employer] [facility] REG O [id number] S [id number] [facility] HUMANA - O/P [id number] 18 [id number] Problems, Conditions, and Diagnoses Code Display Name Description Problem Type Effective Dates Data Source(s) [id number] Pancreatitis Pancreatitis Problem 11/17/2019 12:00:00 A M EDT [facility] ([facility]) acute pancreatitis acute pancreatitis Diagnosis 01:30:00 PM [facility] K86.1 Other chronic pancreatitis Other chronic pancreatitis Diagnosis 05/08/2020 11:26:18 AM [facility] Results ID Date Data Source [id number] 06/14/2020 01:49:33 PM [facility] Name Value Range Interpretation Code Description Data Josiane rce(s) Supporting Document(s) Progress Note [facility] HZINPu0yEdERCmQh58/XXGmtWEOsc1IyHNswTUa0GDyyUDHqQ1WkUMJ9qM7mILF4LUuBAgEwZoQhIhUt lbm [file] 4Ni2JkilX8jkMzDTksTCQ6Ly2IQIPWP7YXLe== ID Date Data Source [id number] 06/08/2020 08:48:53 AM EST [facility] Name Value Range Interpretation Code Description Data Josiane rce(s) Supporting Document(s) Progress Note [facility] MCSLXm5bFzDAOgHv30/PVUhiHUHtv5FkKKvoCSn1NPdfDHTjO9WpNWD0wO9sKHD4KGmMSkLqXjIiIoS2 lbm [file] ufkj//Daxp9f6rvgxi4dUqn6vKykbhr6t+Zvqla3Dh wQDapps9WL7mTi/P/gmosi5dhe8Lkopzl0SjstxgipiyQO/rzXRyMD3/1rrbxlzc6zzHORA5u4m/ent9 0jgnPSTQHHRkxlyautfWyanQtoRhX1GTd00I/wMzz9q4NAAtz3uuTi2v7XlhotIC9iCdJr7a62+TjXHy jwxU0tIdwyg0TrN6XXZexz7zxQxIkY8xuPuTV9zcrG ZPQVm0USmQ3QaplPGf/2t5N00n2ahw19qI6bjT7gH1QiweKx9wAxdc8FDb1kVGCvMaGybLPtkIIYjt7p 5o8rL086Dy7mJxmBweNCorklD8SYuwT6b3CiwLMqZ56WI5KQl6gc9hHZ+bKRsZXg6YRRrygozle9dbwp wA6DvWe8T7HBiYAy7a3OAOpbwPJWqqxDZ9g0XE2XSB rt4evYs3OjlpeKVUG8YYI2DhjOqXVOz8QIprxl5h8EG2/aM2b8mEA6VavJhwNeuGm8OWm3M5p0i4Ahws +z68yZflz/MsqabvGwlk5JwaaLNztAj8FKFjENefk9YsqdIIWKNOh0c2pRoiDV6ow8G35C+cLKajvgaF O6pyeCloJDo00vdNy4BhNJJtgz9PwAc4JQvU65aUMl Nakul/Ed8Pe147/binder operator+tuOKt5cScK3fq435GnDg+wr/ij63KK9AvWTQGjP1HcCp0C+Rcb22+fb21uP+7npE [file] XSANCj4+UGsmtNIreOndXTJFOuE7SQZ4GBlwKOHGGg4I ID Date Data Source [id number] 05/13/2020 03:38:57 PM [facility] Name Value Range Interpretation Code Description Data Josiane rce(s) Supporting Document(s) Progress Note [facility] BSUCGc1pZhRITnMd21/LBAdhJHUlt1SoHWziOQq6XRjqEUUjA0FgBEG1eM0jPXA9XHbSHnFpBvWpHWOt lbm [file] AgICAgICAgICAgICAgICAgICAgICAgICAgICAgICAg ICAgICAgICAgICAgICAgICAgICAgICAgICAgICAgICAgICAgICAgICAgICAgICAgICAgICAgICAgICAg UHPuOMUnCI8WGARhEHQjMRBhEABgTAUwBHQzBNMxNOXyMURsIQYtYVSrVXJoDSGnQTDlDAHvPDIlSVWo ICAgICAgICAgICAgICAgICAgICAgICAgICAgICAgIC MhIMGcDIQiCEPeMNGmUXZpIT0VKFOeLUImDUYtPQTvKWGgYRXwPUVbYSFeNOEwGLImIKOoBHBbGCHyYO AgICAgICAgICAgICAgICAgICAgICAgICAgICAgICAgICAgICAgICAgICAgICAgICAgICAgICAgICAgIA 0KICAgICAgICAgICAgICAgICAgICAgICAgICAgICAg ICAgICAgICAgICAgICAgICAgICAgICAgICAgICAgICAgICAgICAgICAgICAgICAgICAgICAgICAgICAg CGDvQJKuNQYyGX3LMRChZRVvVNFlNGEkVECbMVTqDOSzDRAnRMOiFACgCTSfIJMaAPGaOLYiZNNpCVQy ICAgICAgICAgICAgICAgICAgICAgICAgICAgICAgIC NmCNWcHIVgLEFnKFBhSAMwBGWiMO4UGOLtJKAyFFUbBTFqVIQdZEFbVNBbMSAtTNUbKVXqIURxRTSwUL AgICAgICAgICAgICAgICAgICAgICAgICAgICAgICAgICAgICAgICAgICAgICAgICAgICAgICAgICAgIC KpDX6FQKQiNQQmIEYoVIHpSEAeYUOiIKLyHFGcLRUb ICAgICAgICAgICAgICAgICAgICAgICAgICAgICAgICAgICAgICAgICAgICAgICAgICAgICAgICAgICAg HTCeYIUeOKKaQGMkUR1YVLAeRKQdIWRyGAHbAXWrXIUdBNMeFBAnXKMaUXLsUXLjGVFvASGqRWZeBBBs ICAgICAgICAgICAgICAgICAgICAgICAgICAgICAgIC NqSVNnQCVaJNEiTRFyHJEhSHEfRFZgEX0GUQUyWHVzWMXhPTUoWOBwWPEgDRSqXCFsRKDcVRTaEEOjLO AgICAgICAgICAgICAgICAgICAgICAgICAgICAgICAgICAgICAgICAgICAgICAgICAgICAgICAgICAgIC GhSZNyHK2VDU30lPKje4E4DRTjNY8fxau/Kj7VLMhk ajCeoAQsLU0AGrAoZJ7ein8DQiJjLU4jac1CRLkOFvTcP5I9gWWwUOHzZWKWDcFaQ42uPWxrZx92VDtv JZZsUpXmQOd3Ef3DVrQoG5xxJNPqMhA9WZWbJgJ5WMDhRySoWWzbGD9Wn5YdeRRdPUu+Ui8HKT9qk7Ap MYlpCuDtHT8apl5JSUdSXgGpM2KqitS8XJR2RFBnOa 7TKYXvQJYtyMVqKCYlQBCNHoFjH3ExnQ26YIXNHu9+WLweazJaMveDTbC0EUYec9WcTJj1RT9GHQFdGV s7uJMnFVAzS8Nvw1RtFi83ZTHnEedkF0Dtt9IzdfVVMAvoqIp1FLBVWAShzPRvMe0lGZ9qULUrVWGnRb GoNKSWOA8SQTHiEFPzwINpARFtWTXDCE5JBLtiJEY2 MAZtxaDbbOJbERefGC6MUNNvweNvLqqyDHSJOFc+Cz4MHX0si1KlTRygBSByZC9zxy4UZYaQBaQlN7J3 tRUsE2S1LOryRm6FYXJfLINjYnSpUFOTREltHM2OFQ6jwkD1CM3QlOHfJYAnCYLhcFPoQGu4U55lhMJw GVpkNH7CTYY+Inocencia+Qm5KGWGjILDsMBEnAgSmHPIZGf QiK2JmG4IYm1UpM6LoRT09eMehbaTqCGvyNE0CJB0vYTTiLHUOLW8XqXDxlD8iyfVeCoAmYTGFCeAiE7 9jlQYnBRIxAVB5DOTuLj9UUUHrV4OzmjWrnLcrxwXnCWLfTDVLVQ2TPHcvrpVtePYvlHsdPJ34sScnTU 5XYv3PAnYpLI0klp4CkDUiHa9JPKIiRB1BMCZqUWMr CDBbSZX9OYAeWlIoIUcfOAMyNQQlGFS1HCFiYTTjBH0QPjMaWITdJnChKMNsGATxYEDpyj1UBHTwQEFr QYu2DWLtUGWvCAYlBCbaDXWqTOIcATI5XWDhZAKaSQ5OYfBtLHDyARL1EvNmBIOhQRWnwe2LWTUqJQHv YEG1YPBcHOChHIHyFZktCNNgHXB3WuIhTUFhMLLsON 3GRkFvRWQqKLM3KJMdWEPcKTUmxr8QTQWdZZWpEaEsFySdDAWyOKWlYCjbAIWfRQQ6QnL9NEWeQDYxAQ 9ICwDoICWhJHO0NVBeYPMdCDEtvd1QWGJpWZTbRss4PGKdKFZxQEOsQRpvNDBcTBF7KQNrNTGfKGDtGD 5JYySbMLMoCIajGrhgTFHlKJCflz7JCZNrNTRrCII2 QBCyXWCkUWXqOZpnRGLkRJU0PUPhGTWoNULeQV0IExDiCGNtBhVmKIfnCNPtVEWqgy6UUWTzPSTaPNU0 QTXxPVXsCBLrUYkyINLiWQDwUVE9IZJmORPwHC7PMdIjHIBxEwJzTQkaBLVqIKNxcy6UYIWaBWMbGKZ8 GhErGVXqRRHkGOshLSIcRDRqSaB8VZLaMYDtYX8HDm PhCJAzGnA4GpFgLQEbMKTxwq4CZIWjKCEpCgqmAYNmXKIrDIJmSOzkRGZwBDAkIBekRMTfZIWaOM6MGi LcXDRnTgA1PzZtECMmIZVmwn8KCFQvOGXmVUr1RSHiYYScLHKbSRcjSVKrMJY2FND4BFTfJLHiHE0FTb EpCZSlBfJpZCEjCQNaRUGvqr6EdSDepUxecn8IONrI Nn2IrUqiRXYqSHjkXu9sxQCiABCxHNZJEw9OmzFyINLhCZQEOXbyGQIbJNGpXiJyOWo9CLZzWQCpBRLa PNRoWPDdDAIbUdThOWtpIqY4WWQ0RWZpOZwqAYKdMUI8TRRyRVBhAHOiO0McHQZ8WyR+OI7uNXc+Pg0K m8JmscX9szGuOSmwBXAkTX1YHZTMC2GPYl== ID Date Data Source [id number] 05/13/2020 03:24:00 PM [facility] Name Value Range Interpretation Code Description Data Josiane rce(s) Supporting Document(s) Progress Note [facility] VUUIRp3fYdPHAjHw76/DPEieOSNzu8WlPMjzHSy1RVdqTKKbZ6AjNRH6zC0cRXR4EJoFStPjTaLiVNEz lbm [file] LJnFUPmnALF2gAjvEOhi+J/hO/[place] [place]+vYBpq44I1gyTF [file] YzZmYmI+SG7rSTp+Pc0Ss1SogsS7yiYhZLfyDBHyWI4FDYYXO4ACYx== ID Date Data Source [id number] 05/09/2020 01:06:07 PM [facility] MR ABDOMEN WITH AND WITHOUT CONTRAST 741 83FINAL RESULTInterpreted by:Marjan Jacobson DOINDICATION: 39-year-old male with hx of idiopathic [...] rce(s) Supporting Document(s) ID Date Data Source [id number] 11/30/2019 02:32:00 PM EDT [facility] ([facility]) Name Value Range Interpretation Code Description Data Josiane rce(s) Supporting Document(s) Elastase.pancreatic [Mass/mass] in Stool Laboratory test result [employer] ([facility]) Procedure Social History Code Duration Value Status Description Data Source(s ) Alcohol intake 06/08/2020 12:00:00 AM EST Current drinker of al cohol (finding) completed Current drinker of alcohol (finding) [facility] Tobacco use and exposure 06/08/2020 12:00:00 AM EST Current user co mpleted Current user [facility] Cigarette pack-years 06/08/2020 12:00:00 AM EST UNK completed [facility] Cigarettes smoked current (pack per day) - Reported 06/08/19 12:00:00 AM EST UNK completed [facility] Smoking 06/08/2020 12:00:00 AM EST Former smoker completed Former smoker [facility] Alcohol intake 05/03/2020 12:00:00 AM EST Current drinker of al cohol (finding) completed Current drinker of alcohol (finding) [facility] Vital Signs ID Date Data [...] Body height 67 [in_i] 67 [in_i] [facility]) 5'7" Body weight 81.648 kg 81.648 kg [facility]) Body mass index (BMI) [Ratio] [...] Body height 67 [in_i] 67 [in_i] [facility]) 5'7" ID Date Data Source [id number] 06/26/2020 01:30:57 PM [facility] Name Value Range Interpretation Code Description Data Source(s) TRANSFER FROM [facility] ID Date Data Source [id number] 05/13/2020 03:38:57 PM [facility] Name Value Range Interpretation Code Description Data Source(s) WEIGHT RECORDED 175 lb 175 lb [facility] Body height Measured 67 in 67 in [facility]
[2020-06-26] MEDS: HYDROMORPHONE HCL 0.5 MG/ 0.5 ML SYRINGE (J1170 PER 1) IV PRN ×2 (16:58→20:32)
[2020-06-26] MEDS: LR 1,000 ML IV SCH ×2 (16:59→20:32)
--- NOTE | 2020-06-26 17:15 | REP ---
INDICATION: pancreatitis. COMPARISON: Comparison CT study 08 April 2020.. TECHNIQUE: Helical scanning was acquired and 4 mm axial images are re-formatted. Coronal and sagittal MPR images were generated and reviewed. The contrast enhancement dose is 100 mL of intravenous Isovue 370. FINDINGS: Preliminary digital recycling assistant radiograph demonstrates an unremarkable bowel gas pattern. On axial CT images, the lung bases are clear. There is no evidence of pleural effusion. There is mild diffuse fatty infiltration of the liver. The liver is borderline in size with a craniocaudal vertical span in the midclavicular line of 17.0 cm. This appears to be unchanged. No focal hepatic lesion is seen. The gallbladder is unremarkable on CT images. Spleen is unremarkable. Normal adrenal glands are seen. There is peripancreatic edema again noted. There is some subtle pancreatic edema and decreased density in the pancreatic tail without evidence of mass or abscess. No cyst is seen. There is streaky pericolic gutter free fluid. The findings are similar to the prior study although there is a little more edema in the pancreatic tail. There is more edema in this small bowel mesentery. No pseudocyst is seen. There is an 8 mm right mid abdominal mesenteric lymph node. This is unchanged. Small and large bowel loops are unremarkable in the abdomen and pelvis. Seminal vesicles prostate and urinary bladder are intact. IMPRESSION: Findings consistent with acute pancreatitis with a slightly increased intrapancreatic and peripancreatic edema when compared with the 04/08/2020 study. No pseudocyst or abscess is seen. There is a diffuse fatty infiltration of the liver and borderline liver size. The gallbladder is unremarkable by CT criteria. <Electronically signed by Macho Kirkland > 06/26/20 [id number]
[2020-06-26 18:00] VITALS: BP 125/70
--- NOTE | 2020-06-26 18:51 | HPEPDOC ---
General Date of Admission Jun 26, 2020 at 08:48 Date of Service: Jun 26, 2020 Chief Complaint The patient is a 39-year-old male admitted with a reason for visit of Acute Pancreatitis,Acute Recurrent Pancreatitis. Source: Patient History of Present Illness Mr. Sow is a 39-year-old male with history of pancreatitis 5 times in the past who presents with diffuse abdominal pain. He has seen a GI specialist in [facility] who diagnosed him with a pancreatic divisum. He was to follow-up with [facility], but on Thursday morning he became nauseous. He had one episode of vomiting and felt okay. Thursday morning, he started to have abdominal pain that progressively worsened. He describes as a diffuse, sharp, stabbing pain. Thursday he called his GI specialist who prescribed him oxycodone to control the pain. This did not work. Today the pain was severe he came into the ED. Lipase was mildly elevated at 790, but CT of the abdomen and pelvis demonstrated acute pancreatitis with a normal-appearing gallbladder. AST and ALT are within normal limits. Patient will be admitted for acute pancreatitis Home Medications Scheduled PRN Ondansetron (Ondansetron Odt) 4 Mg Tab.rapdis, 4 MG PO Q6H PRN for NAUSEA OR VOMITING, (Reported) Oxycodone HCl (Oxycodone HCl) 5 Mg Tablet, 5 MG PO QID PRN for PAIN, (Reported) Allergies Coded Allergies: Penicillins (Verified Allergy, Unknown, HIVES, 10/28/19) Past Medical History Medical History 1. Recurrent acute pancreatitis 2. Pancreatic divisum Surgical History 1. Right ankle surgery 2. Vasectomy Family History Patient tells me that he does not know the medical history of his parents Social History * Smoker: former Smoker, chew Alcohol: occationally Drugs: denies A-FIB/CHADSVASC A-FIB History Current/History of A-Fib/PAF?: No Review of Systems Constitutional: Denies: Chills, Fever Eyes: Denies: Vision change ENT: Denies: Sore Throat Skin: Denies: Rash Pulmonary: Denies: Dyspnea, Cough Cardiovascular: Denies: Chest Pain Gastrointestinal: Reports: Nausea, Abdominal Pain Genitourinary: Denies: Dysuria Hematologic: Denies: Bruising Neurological: Denies: Other Symptoms (paresthesias) Psych: Reports: Anxiety Physical Examination General Exam: Positive: Alert, Cooperative, Moderate Distress Eye Exam: Positive: EOMI; Negative: Sclera icteric ENT Exam: Positive: Atraumatic Neck Exam: Positive: Supple Chest Exam: Positive: Clear to auscultation; Negative: Rales, Rhonchi, Wheezing Heart Exam: Positive: Rate Normal, Regular Rhythm Abdomen Exam: Positive: Normal bowel sounds, Soft, Tenderness Extremity Exam: Negative: Edema Neuro Exam: Positive: Cranial Nerves 3-12 NL Psych Exam: Positive: Mental status NL, Mood NL Vital Signs Vital Signs Date Time Temp Pulse Resp B/P (MAP) Pulse Ox O2 Delivery O2 Flow Rate FiO2 06/26/20 18:00 98.6 47 18 125/70 (88) 99 Room Air Laboratory Data Labs 24H Laboratory Tests 2 06/26/20 09:40: Immature Granulocyte % (Auto) 0.4, Neutrophils (%) (Auto) 79.5H, Lymphocytes (%) (Auto) 12.5L, Monocytes (%) (Auto) 6.6, Eosinophils (%) (Auto) 0.8, Basophils (%) (Auto) 0.2, Neutrophils # (Auto) 7.3, Lymphocytes # (Auto) 1.2L, Monocytes # (Auto) 0.6, Eosinophils # (Auto) 0.1, Basophils # (Auto) 0.0, Nucleated Red Blood Cells % (auto) 0.0, Anion Gap 12, Glomerular Filtration Rate > 60.0, Calcium Level 9.8, Total Bilirubin 0.9, Direct Bilirubin 0.1, Aspartate Amino Transf (AST/SGOT) 21, Alanine Aminotransferase (ALT/SGPT) 28, Alkaline Phosphatase 58, Total Protein 7.2, Albumin 4.0, Albumin/Globulin Ratio 1.3, Amylase Level 49, Lipase 790H 06/26/20 15:24: Coronavirus (COVID-19)(PCR) NEGATIVE CBC/BMP Laboratory Tests 06/26/20 09:40 Assessment/Plan Mr. Sow is a 39-year-old male with history of pancreatitis 5 times in the past who presents with diffuse abdominal pain. He has another acute episode of pancreatitis. Patient requested that he be managed here. We will start IV fluids and analgesia. We'll start him on a clear liquid diet as tolerated. Plan / VTE VTE Prophylaxis Ordered?: Yes Plan Plan 1. Acute pancreatitis Secondary to pancreatic divisum Follows with GI in [place] Patient will need to follow with GI after hospitalization Pain control per Dilaudid protocol Zofran for nausea 2. DVT prophylaxis EUSEBIA Hendricks DO Jun 26, 2020 18:50
[2020-06-26 20:00] VITALS: BP 134/79
[2020-06-27] VITALS: BP 131/60
[2020-06-27] MEDS: LR 1,000 ML IV SCH ×6 (00:26→22:04)
[2020-06-27] MEDS: HYDROMORPHONE HCL 0.5 MG/ 0.5 ML SYRINGE (J1170 PER 1) IV PRN ×6 (00:27→22:05)
[2020-06-27 04:00] VITALS: BP 114/58
[2020-06-27 06:05] LABS: HEMATOCRIT 36.3 % (42.0-52.0); HEMOGLOBIN 12.2 g/dl (13.5-17.5); MEAN CORPUSCULAR HEMOGLOBIN 29.8 pg (27.0-33.0); MEAN CORPUSCULAR HGB CONC 33.6 g/dl (32.0-36.5); MEAN CORPUSCULAR VOLUME 88.8 fl (80.0-96.0); PLATELET COUNT, AUTOMATED 153 10^3/uL (150-450); RED BLOOD COUNT 4.09 10^6/uL (4.30-6.10); WHITE BLOOD COUNT 9.6 10^3/uL (4.0-10.0)
[2020-06-27 06:38] LABS: BLOOD UREA NITROGEN 5 MG/DL (7-18); CALCIUM LEVEL 8.9 MG/DL (8.5-10.1); CARBON DIOXIDE LEVEL 29 MEQ/L (21-32); CHLORIDE LEVEL 102 MEQ/L (98-107); CREATININE FOR GFR 0.96 MG/DL (0.70-1.30); GLOMERULAR FILTRATION RATE > 60.0 (>60); GLUCOSE, FASTING 129 MG/DL (70-100); LIPASE 2318 U/L (73-393); POTASSIUM SERUM 4.1 MEQ/L (3.5-5.1); SODIUM LEVEL 138 MEQ/L (136-145); TRIGLYCERIDES LEVEL 82 MG/DL (<150)
[2020-06-27 07:43] VITALS: BP 117/68
[2020-06-27] MEDS ORDERED: ENOXAPARIN 40MG/0.4ML SYRINGE (J1650 PER 10MG) SC SCH (09:00)
--- NOTE | 2020-06-27 11:35 | IPNPDOC ---
Subjective Date Seen The patient was seen on 06/27/20. Subjective Chief Complaint/HPI Mr. Sow is a 39-year-old male with history of pancreatitis 5 times in the past who presents with acute pancreatitis. This morning, he tells me he is feeling better and tolerating the clear liquid diet. Strangely, his lipase has increased from 790 to 2318. Otherwise denies dyspnea or chest pain. Abdominal pain is about a 6/10. Still requiring analgesia every 4 to 5 hours. Objective Physical Examination General Exam: Positive: Alert, Cooperative Eye Exam: Positive: EOMI; Negative: Sclera icteric ENT Exam: Positive: Atraumatic Neck Exam: Positive: Supple Chest Exam: Positive: Clear to auscultation; Negative: Rales, Rhonchi, Wheezing Heart Exam: Positive: Rate Normal, Regular Rhythm Abdomen Exam: Positive: Soft, Tenderness Extremity Exam: Negative: Edema Neuro Exam: Positive: Cranial Nerves 3-12 NL Psych Exam: Positive: Mental status NL, Mood NL Assessment /Plan Assessment Mr. Sow is a 39-year-old male with history of pancreatitis 5 times in the past who is here for acute pancreatitis. Continue with clear liquid diet and aggressive IVF. Still requiring analgesia every 4 to 5 hours. Plan/VTE VTE Prophylaxis Ordered?: Yes Plan 1. Acute pancreatitis Secondary to pancreatic divisum. Triglycerides not elevated Follows with GI in [place] Patient will need to follow with GI after hospitalization Pain control per Dilaudid protocol Zofran for nausea -Aggressive IVF and clear liquid diet 2. DVT prophylaxis Due to abdominal pain, will switch to SCD and TEDs. VS, I&O, 24H, Fishbone Vital Signs/I&O Vital Signs Date Time Temp Pulse Resp B/P (MAP) Pulse Ox O2 Delivery O2 Flow Rate FiO2 06/27/20 09:13 18 06/27/20 09:03 Room Air 06/27/20 07:43 97.9 56 117/68 (84) 99 I&O- Last 24 Hours up to 6 AM 06/27/20 06:00 Intake Total 3050 ml Output Total 2350 ml Balance 700 ml Laboratory Data 24H LABS Laboratory Tests 2 06/26/20 15:24: Coronavirus (COVID-19)(PCR) NEGATIVE 06/27/20 05:40: Nucleated Red Blood Cells % (auto) 0.0, Anion Gap 7L, Glomerular Filtration Rate > 60.0, Calcium Level 8.9, Triglycerides Level 82, Lipase 2318H CBC/BMP Laboratory Tests 06/27/20 05:40 EUSEBIA QUINTANA DO Jun 27, 2020 11:35
[2020-06-27 11:51] VITALS: BP 116/65
[2020-06-27 16:00] VITALS: BP 114/62
[2020-06-27 20:00] VITALS: BP 117/71
[2020-06-28] VITALS: BP 112/56
[2020-06-28] MEDS: LR 1,000 ML IV SCH ×5 (00:39→19:12)
[2020-06-28 04:00] VITALS: BP 138/65
[2020-06-28] MEDS: HYDROMORPHONE HCL 0.5 MG/ 0.5 ML SYRINGE (J1170 PER 1) IV PRN ×2 (05:43→14:42)
[2020-06-28 05:52] LABS: HEMOGLOBIN 10.8 g/dl (13.5-17.5); MEAN CORPUSCULAR HEMOGLOBIN 29.5 pg (27.0-33.0); MEAN CORPUSCULAR HGB CONC 32.7 g/dl (32.0-36.5); MEAN CORPUSCULAR VOLUME 90.2 fl (80.0-96.0); PLATELET COUNT, AUTOMATED 137 10^3/uL (150-450); RED BLOOD COUNT 3.66 10^6/uL (4.30-6.10); WHITE BLOOD COUNT 6.2 10^3/uL (4.0-10.0)
[2020-06-28 06:10] LABS: BLOOD UREA NITROGEN 3 MG/DL (7-18); CALCIUM LEVEL 8.5 MG/DL (8.5-10.1); CARBON DIOXIDE LEVEL 33 MEQ/L (21-32); CHLORIDE LEVEL 107 MEQ/L (98-107); CREATININE FOR GFR 0.76 MG/DL (0.70-1.30); GLOMERULAR FILTRATION RATE > 60.0 (>60); GLUCOSE, FASTING 144 MG/DL (70-100); LIPASE 510 U/L (73-393); POTASSIUM SERUM 3.7 MEQ/L (3.5-5.1); SODIUM LEVEL 142 MEQ/L (136-145)
[2020-06-28 08:00] VITALS: BP 121/57
--- NOTE | 2020-06-28 10:36 | IPNPDOC ---
Subjective Date Seen The patient was seen on 06/28/20. Subjective Chief Complaint/HPI Mr. Sow is a 39-year-old male with history of pancreatitis 5 times in the past who presents with acute pancreatitis. This morning, patient tells me that the pain is becoming less frequent. He is able to tolerate a clear liquid diet. Gave him the option of either full liquids vs mechanical soft. He would like to try mechanical soft. Otherwise, denies chest pain or dyspnea. Objective Physical Examination General Exam: Positive: Alert, Cooperative Eye Exam: Positive: EOMI; Negative: Sclera icteric ENT Exam: Positive: Atraumatic Neck Exam: Positive: Supple Chest Exam: Positive: Clear to auscultation; Negative: Rales, Rhonchi, Wheezing Heart Exam: Positive: Rate Normal, Regular Rhythm Abdomen Exam: Positive: Normal bowel sounds, Soft, Tenderness Extremity Exam: Negative: Edema Neuro Exam: Positive: Cranial Nerves 3-12 NL Psych Exam: Positive: Mental status NL, Mood NL Assessment /Plan Assessment Mr. Sow is a 39-year-old male with history of pancreatitis 5 times in the past who is here for acute pancreatitis. Pain is becoming less frequent. Will c ontinue with IVF. He feels like he can try a mechanical soft diet. Plan/VTE VTE Prophylaxis Ordered?: Yes Plan 1. Acute pancreatitis Secondary to pancreatic divisum. Triglycerides not elevated Follows with GI in [place] Patient will need to follow with GI after hospitalization Pain control per Dilaudid protocol Zofran for nausea -IVF -Trying mechanical soft diet 2. DVT prophylaxis Due to abdominal pain, will switch to SCD and TEDs. VS, I&O, 24H, Fishbone Vital Signs/I&O Vital Signs Date Time Temp Pulse Resp B/P (MAP) Pulse Ox O2 Delivery O2 Flow Rate FiO2 06/28/20 05:53 14 Room Air 06/28/20 05:43 98 06/28/20 04:00 98.9 66 138/65 (89) I&O- Last 24 Hours up to 6 AM 06/28/20 06:00 Intake Total 3470 ml Output Total 5000 ml Balance -1530 ml Laboratory Data 24H LABS Laboratory Tests 2 06/27/20 12:09: Lipase 1338H 06/28/20 05:25: Lipase 510H, Nucleated Red Blood Cells % (auto) 0.0, Anion Gap 2L, Glomerular Filtration Rate > 60.0, Calcium Level 8.5 CBC/BMP Laboratory Tests 06/28/20 05:25 EUSEBIA QUINTANA DO Jun 28, 2020 10:36
[2020-06-28 12:00] VITALS: BP 126/67
[2020-06-28 16:00] VITALS: BP 119/63
[2020-06-28] MEDS ORDERED: PERCOCET 5MG/325MG TAB PO PRN (18:55)
[2020-06-28 20:00] VITALS: BP 124/70
[2020-06-29] VITALS: BP 115/69
[2020-06-29] MEDS: LR 1,000 ML IV SCH (02:46)
[2020-06-29] MEDS: PERCOCET 5MG/325MG TAB PO PRN ×2 (03:57→09:58)
[2020-06-29 04:00] VITALS: BP 117/63
[2020-06-29 05:34] LABS: HEMATOCRIT 31.5 % (42.0-52.0); HEMOGLOBIN 10.2 g/dl (13.5-17.5); MEAN CORPUSCULAR HEMOGLOBIN 29.2 pg (27.0-33.0); MEAN CORPUSCULAR HGB CONC 32.4 g/dl (32.0-36.5); MEAN CORPUSCULAR VOLUME 90.3 fl (80.0-96.0); PLATELET COUNT, AUTOMATED 129 10^3/uL (150-450); RED BLOOD COUNT 3.49 10^6/uL (4.30-6.10); WHITE BLOOD COUNT 4.1 10^3/uL (4.0-10.0)
[2020-06-29 06:01] LABS: BLOOD UREA NITROGEN 5 MG/DL (7-18); CARBON DIOXIDE LEVEL 33 MEQ/L (21-32); CHLORIDE LEVEL 106 MEQ/L (98-107); CREATININE FOR GFR 0.84 MG/DL (0.70-1.30); GLOMERULAR FILTRATION RATE > 60.0 (>60); GLUCOSE, FASTING 136 MG/DL (70-100); LIPASE 338 U/L (73-393); POTASSIUM SERUM 3.5 MEQ/L (3.5-5.1); SODIUM LEVEL 141 MEQ/L (136-145)
[2020-06-29 07:53] VITALS: BP 115/70
--- NOTE | 2020-06-29 22:16 | DS.PDOC ---
Discharge Summary General Date of Admission Jun 26, 2020 at 16:39 Date of Discharge Jun 29, 2020 Attending Physician: EUSEBIA QUINTANA DO Discharge Summary PROCEDURES PERFORMED DURING STAY: None ADMITTING DIAGNOSES: 1. Acute pancreatitis DISCHARGE DIAGNOSES: 1. Acute pancreatitis COMPLICATIONS/CHIEF COMPLAINT: Acute Pancreatitis,Acute Recurrent Pancreatitis. HISTORY OF PRESENT ILLNESS: Mr. Sow is a 39-year-old male with history of pancreatitis 5 times in the past who presents with diffuse abdominal pain. He has seen a GI specialist in [facility] who diagnosed him with a pancreatic divisum. He was to follow-up with [facility], but on Thursday morning he became nauseous. He had one episode of vomiting and felt okay. Thursday morning, he started to have abdominal pain that progressively worsened. He describes as a diffuse, sharp, stabbing pain. Thursday he called his GI specialist who prescribed him oxycodone to control the pain. This did not work. Today the pain was severe he came into the ED. Lipase was mildly elevated at 790, but CT of the abdomen and pelvis demonstrated acute pancreatitis with a normal-appearing gallbladder. AST and ALT are within normal limits. Patient will be admitted for acute pancreatitis HOSPITAL COURSE: Patient did well during hospitalization. He was tapered down on analgesics and tolerated a solid diet. His lipase initially increased from 700 to 2100, but then tapered down to 300. Today, he felt well. He felt ready for home and was subsequently discharged DISCHARGE MEDICATIONS: Please see below. ALLERGIES: Please see below. PHYSICAL EXAMINATION ON DISCHARGE: VITAL SIGNS: Please see below. GENERAL: Comfortable, in no apparent distress HEENT: Head normocephalic, atraumatic NECK: Supple CARDIOVASCULAR EXAMINATION: Regular rate and rhythm RESPIRATORY EXAMINATION: Lungs clear to auscultation bilaterally ABDOMINAL EXAMINATION: Soft, non-tender, normal bowel sounds EXTREMITIES: No pitting edema bilaterally SKIN: Warm and dry NEUROLOGICAL EXAMINATION: CN 3-12 grossly intact PSYCHIATRIC EXAMINATION: Normal mood and affect LABORATORY DATA: Please see below. IMAGING: CT abd/pelvis Findings consistent with acute pancreatitis with a slightly increased intrapancreatic and peripancreatic edema when compared with the 04/08/2020 study. No pseudocyst or abscess is seen. There is a diffuse fatty infiltration of the liver and borderline liver size. The gallbladder is unremarkable by CT criteria. PROGNOSIS: Good ACTIVITY: As tolerated. DIET: As tolerated. DISCHARGE PLAN: Home DISPOSITION: 01 Home, Self-Care. DISCHARGE INSTRUCTIONS: 1. Follow up with PCP within 5 days 2. Follow up with your GI specialist in [place] as soon as possible DISCHARGE CONDITION: Stable. Total time spent on discharge planning, discharge summary, and medication reconciliation: 40 minutes. Vital Signs/I&Os Vital Signs Date Time Temp Pulse Resp B/P (MAP) Pulse Ox O2 Delivery O2 Flow Rate FiO2 06/29/20 10:45 16 06/29/20 07:53 98.2 48 115/70 (85) 99 Room Air I&O- Last 24 Hours up to 6 AM 06/29/20 06:00 Intake Total 4680 ml Output Total 3850 ml Balance 830 ml Laboratory Data Labs 24H Laboratory Tests 2 06/29/20 05:07: Nucleated Red Blood Cells % (auto) 0.0, Anion Gap 2L, Glomerular Filtration Rate > 60.0, Calcium Level 9.0, Lipase 338 CBC/BMP Laboratory Tests 06/29/20 05:07 Discharge Medications Scheduled PRN Ondansetron (Ondansetron Odt) 4 Mg Tab.rapdis, 4 MG PO Q6H PRN for NAUSEA OR VOMITING, (Reported) Oxycodone HCl (Oxycodone HCl) 5 Mg Tablet, 5 MG PO QID PRN for PAIN, (Reported) Allergies Coded Allergies: Penicillins (Verified Allergy, Unknown, HIVES, 10/28/19) EUSEBIA QUINTANA DO Jun 29, 2020 22:16
== END 2020-06-29 11:33 | disposition home or self-care (01) | DRG 440 ==
LOC: M ED 08:47 → M ED INP 08:48 → OBSVTOIN 16:39 → M PCU 17:46
PROVIDERS: ADMIT Internal Medicine; ATTEND Internal Medicine
DX: K85.90 Acute pancreatitis without necrosis or infection, unspecified (principal); Z88.0 Allergy status to penicillin; Z20.822 Contact with and (suspected) exposure to COVID-19

== ENCOUNTER 2020-10-21 15:42 | Emergency (ER) | payer OTHER ==
[~2020-10-21] VITALS: Ht 165.1 cm; Wt 84.6 kg
[~2020-10-21 15:42] MED LIST changes: +OXYC-517 PO
[2020-10-21] MEDS ORDERED: IBUP200C89 PO (15:51)
[2020-10-21] MEDS ORDERED: HYDROmorphone 2 MG TAB PO ONE ×2 (16:55→18:15)
[2020-10-21] MEDS ORDERED: ONDANSETRON 4 MG ORAL DISINTEGRATING TAB PO ONE (16:55)
[2020-10-21] MEDS ORDERED: PILL CUTTER 1 EACH XX PRN (17:00)
[2020-10-21 17:30] LABS: BASO % 0.4 % (0.0-1.0); EOS # 0.1 10^3/uL (0.0-0.5); EOS % 1.7 % (0.0-3.0); HEMATOCRIT 39.2 % (42.0-52.0); HEMOGLOBIN 13.4 g/dl (13.5-17.5); LYMPH # 1.5 10^3/uL (1.5-5.0); LYMPH % 17.7 % (24.0-44.0); MEAN CORPUSCULAR HEMOGLOBIN 29.9 pg (27.0-33.0); MEAN CORPUSCULAR HGB CONC 34.2 g/dl (32.0-36.5); MEAN CORPUSCULAR VOLUME 87.5 fl (80.0-96.0); MONO # 0.7 10^3/uL (0.0-0.8); MONO % 7.9 % (2.0-8.0); NEUTROPHILS # 5.9 10^3/uL (1.5-8.5); NEUTROPHILS % 71.9 % (36.0-66.0); PLATELET COUNT, AUTOMATED 185 10^3/uL (150-450); RED BLOOD COUNT 4.48 10^6/uL (4.30-6.10); WHITE BLOOD COUNT 8.2 10^3/uL (4.0-10.0)
[2020-10-21 17:59] LABS: ALBUMIN 3.8 GM/DL (3.2-5.2); BILIRUBIN,DIRECT 0.1 MG/DL (0.0-0.2); BILIRUBIN,TOTAL 0.5 MG/DL (0.2-1.0)
[2020-10-21 18:55] VITALS: BP 122/71
--- NOTE | 2020-10-21 19:27 | REPVR ---
PROCEDURE INFORMATION: Exam: XR Chest Exam date and time: 10/21/2020 5:05 PM Age: 40 years old Clinical indication: Other: Epigstric pain; Additional info: Epigastric pain, chronic pancreatitis TECHNIQUE: Imaging protocol: XR of the chest. Views: 2 views. COMPARISON: CT ABD/PEL W/IV CONTRAST ONLY 06/26/2020 4:41 PM FINDINGS: Lungs: There is suggestion of minimal atelectasis or scar anterior inferiorly on the lateral view, but this is difficult to localize on the PA view. No dense consolidation. Pleural spaces: Unremarkable. No pleural effusion. No pneumothorax. Heart/Mediastinum: Unremarkable. No cardiomegaly. Bones/joints: Unremarkable. IMPRESSION: 1. No acute cardiopulmonary abnormality. Suggestion of minimal atelectasis or scar anterior inferiorly on the lateral view is difficult to localize on the PA view and is of questionable clinical significance. Electronically signed by: Melissa Yepez On 10/21/2020 19:27:29 PM
[2020-10-21] MEDS ORDERED: OXYCODONE/APAP 5MG/325MG(BULK FOR ED) 1 TABLET PO PRN (19:30)
[2020-10-21] MEDS ORDERED: DILA2TAB6 PO (19:34)
[2020-10-21] MEDS ORDERED: ONDA4TAB6 PO (19:34)
--- NOTE | 2020-10-22 15:17 | ECGEPIP ---
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
--- NOTE | 2020-10-22 20:58 | ED PDOC ---
Post-Departure Follow-Up cxr faxed to [facility] for [facility] Merari Isaacs MD Oct 22, 2020 20:58
== END 2020-10-21 19:47 | disposition home or self-care (01) ==
LOC: M ED 15:42
DX: D64.9 Anemia, unspecified (principal); R10.9 Unspecified abdominal pain; G47.33 Obstructive sleep apnea (adult) (pediatric); F43.10 Post-traumatic stress disorder, unspecified; K86.1 Other chronic pancreatitis; Z88.0 Allergy status to penicillin
CPT/HCPCS: 36415; 71046; 80047; 80076; 81001; 83690; 85025; 93005; 99284; Q0162

== ENCOUNTER 2020-12-12 14:17 | Emergency (ER) | payer OTHER ==
[~2020-12-12] VITALS: Ht 170.2 cm; Wt 82.5 kg
[~2020-12-12 14:17] MED LIST changes: +DILA2TAB6 PO; -HM I200C PO; +IBUP200C34 PO; +IBUP200C89 PO
[2020-12-12 17:33] LABS: BASO # 0.1 10^3/uL (0.0-0.2); BASO % 0.6 % (0.0-1.0); EOS # 0.2 10^3/uL (0.0-0.5); EOS % 1.7 % (0.0-3.0); HEMATOCRIT 41.2 % (42.0-52.0); HEMOGLOBIN 14.3 g/dl (13.5-17.5); LYMPH # 1.7 10^3/uL (1.5-5.0); LYMPH % 17.8 % (24.0-44.0); MEAN CORPUSCULAR HEMOGLOBIN 30.1 pg (27.0-33.0); MEAN CORPUSCULAR HGB CONC 34.7 g/dl (32.0-36.5); MEAN CORPUSCULAR VOLUME 86.7 fl (80.0-96.0); MONO # 0.7 10^3/uL (0.0-0.8); MONO % 7.2 % (2.0-8.0); NEUTROPHILS % 72.3 % (36.0-66.0); PLATELET COUNT, AUTOMATED 226 10^3/uL (150-450); RED BLOOD COUNT 4.75 10^6/uL (4.30-6.10); WHITE BLOOD COUNT 9.7 10^3/uL (4.0-10.0)
[2020-12-12 18:10] LABS: ALBUMIN 4.2 GM/DL (3.2-5.2); ALT/SGPT 33 U/L (12-78); BILIRUBIN,DIRECT 0.3 MG/DL (0.0-0.2); BILIRUBIN,TOTAL 0.8 MG/DL (0.2-1.0); BLOOD UREA NITROGEN 8 MG/DL (7-18); CALCIUM LEVEL 9.7 MG/DL (8.5-10.1); CARBON DIOXIDE LEVEL 23 MEQ/L (21-32); CHLORIDE LEVEL 108 MEQ/L (98-107); CREATININE FOR GFR 0.82 MG/DL (0.70-1.30); GLOMERULAR FILTRATION RATE > 60.0 (>60); GLUCOSE, FASTING 103 MG/DL (70-100); LIPASE 268 U/L (73-393); POTASSIUM SERUM 3.9 MEQ/L (3.5-5.1); SODIUM LEVEL 140 MEQ/L (136-145); TOTAL PROTEIN 7.3 GM/DL (6.4-8.2)
[2020-12-12] MEDS ORDERED: PANTOPRAZOLE 40MG VIAL (C9113 PER 1) IV ONE (18:35)
[2020-12-12] MEDS ORDERED: GI COCKTAIL 50ML BTL(HYOSCYAMINE/MAALOX/LIDOCAINE VISCOUS)(1:3:1) PO ONE (18:35)
[2020-12-12] MEDS ORDERED: KETOROLAC 30 MG/ML 1ML VIAL IV ONE (18:35)
[2020-12-12 18:59] LABS: CK-MB VALUE MASS < 1.0 NG/ML (<3.6); CPK CREATINE PHOSPHOKINASE 75 U/L (39-308); MB/CK RELATIVE INDEX 1.33 (< OR =4); TROPONIN I < 0.02 NG/ML (< 0.10)
--- NOTE | 2020-12-12 19:20 | REP ---
INDICATION: epigastric, central abd pain. COMPARISON: Comparison study is from October 21, 2020.. TECHNIQUE: Three views including upright chest radiograph. FINDINGS: Upright chest radiograph is unremarkable. There is no evidence of infiltrate or free subdiaphragmatic air. Heart size is normal. Pulmonary vasculature is not increased. Pleural angles are sharp. Supine and erect views of the abdomen demonstrate a normal bowel gas pattern. The psoas margins and the flank stripes are intact. There is no evidence of mass, organomegaly, or pathologic calcification. IMPRESSION: Negative acute abdominal series. <Electronically signed by Macho Kirkland > 12/12/201915
--- NOTE | 2020-12-12 19:49 | REP ---
INDICATION: RUQ, epigastric pain. COMPARISON: Comparison CT study is from June 26, 2020.. TECHNIQUE: Right upper quadrant abdominal sonography. FINDINGS: Scanning through the right upper quadrant of the abdomen demonstrates a normal sized, thin-walled gallbladder without evidence of stone or polyp. Common bile duct is normal measuring 0.4 cm in greatest diameter. No focal liver lesion is seen. Liver size is normal. No pancreatic abnormality is observed. No right renal abnormality is seen. There is no evidence of ascites. The right kidney measures 10.9 x 4.3 x 4.2 cm. IMPRESSION: Negative right upper quadrant sonography. <Electronically signed by Macho Kirkland > 12/12/201945
[2020-12-12] MEDS ORDERED: MORPHINE 4 MG/ML 1ML VIAL/SYRINGE (J2270) IV ONE (20:05)
[2020-12-12] MEDS ORDERED: ONDANSETRON 4MG/2ML VIAL IV ONE (20:05)
[2020-12-12] MEDS ORDERED: HYDR-3713 PO (20:06)
[2020-12-12] MEDS ORDERED: OMEP40CA4 PO (20:06)
[2020-12-12] MEDS ORDERED: ONDA4TAB6 PO (20:13)
[2020-12-12 21:00] VITALS: BP 155/87
--- NOTE | 2020-12-13 06:44 | ECGEPIP ---
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
== END 2020-12-12 21:14 | disposition home or self-care (01) ==
LOC: M ED 14:17
DX: R10.13 Epigastric pain (principal); R11.0 Nausea; Z87.19 Personal history of other diseases of the digestive system; Z88.0 Allergy status to penicillin; F17.210 Nicotine dependence, cigarettes, uncomplicated
CPT/HCPCS: 36415; 74021; 76705; 80048; 80076; 82550; 82553; 83690; 84484; 85025; 93005; 96374; 96375; 99284; C9113; J1885; J2270; J2405

== ENCOUNTER 2020-12-14 09:01 | Inpatient (IN) | payer OTHER ==
[~2020-12-14] VITALS: Ht 170.2 cm; Wt 81.6 kg
[~2020-12-14 09:01] MED LIST changes: +HYDR-3713 PO; +OMEP40CA4 PO
[2020-12-14] MEDS ORDERED: NS 1,000 ML IV ONE ×2 (11:40→14:35)
[2020-12-14] MEDS ORDERED: ONDANSETRON 4MG/2ML VIAL IV ONE (11:40)
[2020-12-14] MEDS: HYDROMORPHONE HCL 0.5 MG/ 0.5 ML SYRINGE (J1170 PER 1) IV PRN ×5 (11:51→22:49)
[2020-12-14 12:14] LABS: BASO % 0.3 % (0.0-1.0); EOS # 0.1 10^3/uL (0.0-0.5); HEMATOCRIT 40.4 % (42.0-52.0); HEMOGLOBIN 13.9 g/dl (13.5-17.5); LYMPH # 1.7 10^3/uL (1.5-5.0); LYMPH % 14.2 % (24.0-44.0); MEAN CORPUSCULAR HGB CONC 34.4 g/dl (32.0-36.5); MEAN CORPUSCULAR VOLUME 87.1 fl (80.0-96.0); MONO # 0.8 10^3/uL (0.0-0.8); MONO % 6.7 % (2.0-8.0); NEUTROPHILS # 9.3 10^3/uL (1.5-8.5); NEUTROPHILS % 77.3 % (36.0-66.0); PLATELET COUNT, AUTOMATED 209 10^3/uL (150-450); RED BLOOD COUNT 4.64 10^6/uL (4.30-6.10); WHITE BLOOD COUNT 12.1 10^3/uL (4.0-10.0)
[2020-12-14 12:38] LABS: ALBUMIN 4.4 GM/DL (3.2-5.2); ALT/SGPT 26 U/L (12-78); AMYLASE 216 U/L (25-115); BILIRUBIN,DIRECT 0.2 MG/DL (0.0-0.2); BILIRUBIN,TOTAL 0.8 MG/DL (0.2-1.0); BLOOD UREA NITROGEN 5 MG/DL (7-18); CALCIUM LEVEL 9.8 MG/DL (8.5-10.1); CARBON DIOXIDE LEVEL 23 MEQ/L (21-32); CHLORIDE LEVEL 104 MEQ/L (98-107); CREATININE FOR GFR 0.92 MG/DL (0.70-1.30); GLOMERULAR FILTRATION RATE > 60.0 (>60); GLUCOSE, FASTING 95 MG/DL (70-100); LIPASE 4243 U/L (73-393); POTASSIUM SERUM 4.1 MEQ/L (3.5-5.1); SODIUM LEVEL 136 MEQ/L (136-145); TOTAL PROTEIN 7.7 GM/DL (6.4-8.2)
[2020-12-14] MEDS ORDERED: ISOVUE-370 76% 100ML VIAL As Ordered ONE (12:51)
--- NOTE | 2020-12-14 13:35 | REP ---
INDICATION: recurrent pancreatitis--upper abd pain. COMPARISON: Multiple the latest 06/26/2020 TECHNIQUE: Standard helical technique after the intravenous administration of 100 cc Isovue 370 FINDINGS: The lung bases are clear and unchanged. There is diffuse peripancreatic fatty infiltration there is no abnormal fluid seen in the anterior pararenal space or lesser sac. There is a tiny amount of free fluid in the paracolic gutter bilaterally.. There is no evidence of a mass or adenopathy. There are a few gas and fluid filled mildly dilated small bowel loops in the left upper quadrant. The liver, gallbladder, spleen, adrenal glands, and kidneys are again seen to be within normal limits. The abdominal aorta and para-aortic regions are again seen to be within normal limits. The osseous structures are stable and intact. IMPRESSION: Pancreatitis and related findings as described above. <Electronically signed by Linden Phillips > 12/14/20 [id number]
[2020-12-14] MEDS ORDERED: HOME MED LIST COMPLETE! XX SCH (15:00)
[2020-12-14] MEDS ORDERED: MOM 30ML SUSPENSION UDC PO PRN (15:20)
[2020-12-14] MEDS ORDERED: ACETAMINOPHEN TAB 650MG DOSE (2X325MG) PO PRN (15:20)
[2020-12-14] MEDS ORDERED: MAALOX 30 ML SUSP *UDC PO PRN (15:20)
[2020-12-14] MEDS ORDERED: MORPHINE 4 MG/ML 1ML VIAL/SYRINGE (J2270) IV PRN (15:20)
[2020-12-14 15:36] LABS: TRIGLYCERIDES LEVEL 194 MG/DL (<150)
--- NOTE | 2020-12-14 15:49 | HPEPDOC ---
[facility] Medical History & Physical Date of Admission Dec 14, 2020 Date of Service: Dec 14, 2020 History and Physical Chief complaint: Who presented to the emergency room with complaints of abdominal pain History of present illness: Patient is a 40-year-old male with a past medical history of multiple episodes of pancreatitis, pancreatic divisum, prior history of chronic pancreatitis (05/2020; s/p Creon), who presented to the emergency room with complaints of abdominal pain. Of note, patient presented to the emergency room on 12/12 lab work and imaging via ultrasound of his abdomen was unrevealing at that time. Lipase was within normal limits. 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 Patient reported that his abdominal pain continued to persist on the subsequent day and came to the emergency room today for further evaluation because his pain was becoming intolerable. Patient reports that his abdominal pain is occurring throughout the entire center of his abdomen. Reports the pain as an 8/10, described as sharp/stabbing, radiating to his bilateral flanks. Patient reports alleviation with position any medications and heating pads. Patient denies any aggravating factors. Reported associated nausea, no vomiting. Reported that he had a loose bowel movement on Thursday, but since that point. Has not had any further bowel movements. Denies any urinary discomfort. Denies any fevers or chills, has not spent any chest pain, short of breath, cough or palpitations. Past Medical History: Multiple episodes of pancreatitis Pancreatic divisum Prior history of chronic pancreatitis (05/2020; s/p Creon), Past Surgical History: [place] tooth resection (2004) Tonsillectomy (1982) R ankle fracture 2009 Vasectomy 2018 Allergies: See below Medications: See below Family History: - Reviewed and noncontributory Social History: - Denies the use of tobacco or illicit drugs; reports social alcohol use, last use was 2 weeks ago - Denies recent travel or sick contacts - Lives with and 3 children - Occupation; works in the [employer] with [employer] Review of Systems: 10 point review of systems complete, all negative otherwise stated in HPI Physical exam: - Vitals: BP [128/84], HR [52], RR [16], Sat [100%RA], Temp [98.4F] - General: Lying in bed, Speaking in full sentences, AAOx3 - HEENT: NC, AT, PERRLA - CVS: Bradycardic, +S1S2 - Lungs: Fair air entry bilaterally, No appreciable wheezing / rales / rhonchi - Abdomen: Soft, Non-distended, mild tenderness at all quadrants, however, more pronounced tenderness at epigastrium - Extremities: No lower extremity edema, No calf tenderness - Neuro: No focal motor or sensory deficit - Skin: No visible rashes Labs: See below Imaging: Gall bladder US 12/12: Negative right upper quadrant sonography. CT abdomen / pelvis 12/12: Pancreatitis and related findings as described above. EKG: See below Assessment and Plan: Abdominal pain - likely 2/2 acute pancreatitis - Multiple episodes of pancreatitis / Reported pancreatic divisum - Prior history of chronic pancreatitis (05/2020; s/p Creon) - Discussed the second presentation to the emergency room with abdominal pain with associated nausea - Patient reports that the last drink of alcohol was 2 weeks ago; he does not drink in excess - Physical with epigastric tenderness - Elevated lipase / no liver function abnormalities - Imaging noted above - Will check triglyceride levels - Patient is in the process of having an endoscopic ultrasound-guided biopsy of his pancreas in [place] - Will start symptomatic control with morphine and Zofran - Will start aggressive IV fluid hydration with normal saline - Will keep patient NPO for now GI prophylaxis / GERD - Will start Protonix IV DVT prophylaxis - Will start Lovenox Vital Signs Vital Signs Date Time Temp Pulse Resp B/P (MAP) Pulse Ox O2 Delivery O2 Flow Rate FiO2 12/14/20 15:46 99.3 55 22 121/67 (85) 100 Room Air Laboratory Data Labs 24H Laboratory Tests 2 12/14/20 11:36: Immature Granulocyte % (Auto) 0.5, Neutrophils (%) (Auto) 77.3H, Lymphocytes (%) (Auto) 14.2L, Monocytes (%) (Auto) 6.7, Eosinophils (%) (Auto) 1.0, Basophils (%) (Auto) 0.3, Neutrophils # (Auto) 9.3H, Lymphocytes # (Auto) 1.7, Monocytes # (Auto) 0.8, Eosinophils # (Auto) 0.1, Basophils # (Auto) 0.0, Nucleated Red Blood Cells % (auto) 0.0, Anion Gap 9, Glomerular Filtration Rate > 60.0, Calcium Level 9.8, Total Bilirubin 0.8, Direct Bilirubin 0.2, Aspartate Amino Transf (AST/SGOT) 22, Alanine Aminotransferase (ALT/SGPT) 26, Alkaline Phosphatase 53, Total Protein 7.7, Albumin 4.4, Albumin/Globulin Ratio 1.3, Triglycerides Level 194H, Amylase Level 216H, Lipase 4243H 12/14/20 14:57: Coronavirus (COVID-19)(PCR) NEGATIVE CBC/BMP Laboratory Tests 12/14/20 11:36 Home Medications Scheduled Omeprazole (Omeprazole) 40 Mg Capsule.dr, 1 CAP PO DAILY Scheduled PRN Hydrocodone/Acetaminophen (Hydrocodone-Acetamin 5-325 mg) 1 Each Tablet, 1 TAB PO Q6H PRN for PAIN Ondansetron (Ondansetron Odt) 4 Mg Tab.rapdis, 4 MG PO Q6-8HP PRN for nausea/vomiting Allergies Coded Allergies: Penicillins (Verified Allergy, Unknown, HIVES, 10/28/19) KENYA MCFARLAND MD Dec 14, 2020 15:49
[2020-12-14] MEDS ORDERED: HYDROMORPHONE HCL 0.5 MG/ 0.5 ML SYRINGE (J1170 PER 1) IV PRN (16:30)
[2020-12-14] MEDS: NS 1,000 ML IV SCH ×3 (16:43→22:49)
[2020-12-14 18:29] VITALS: BP 119/63
[2020-12-14 22:00] VITALS: BP 119/62
[2020-12-14] MEDS: DOCUSATE SODIUM 100MG CAPSULE PO SCH (22:49)
[2020-12-15] MEDS: ONDANSETRON 4MG/2ML VIAL IV PRN ×2 (01:28→08:34)
[2020-12-15] MEDS: NS 1,000 ML IV SCH ×4 (01:29→20:37)
[2020-12-15] MEDS: HYDROMORPHONE HCL 0.5 MG/ 0.5 ML SYRINGE (J1170 PER 1) IV PRN ×5 (05:17→21:52)
[2020-12-15 06:00] VITALS: BP 133/65
[2020-12-15 07:58] LABS: BASO % 0.4 % (0.0-1.0); EOS # 0.2 10^3/uL (0.0-0.5); EOS % 2.7 % (0.0-3.0); HEMATOCRIT 33.6 % (42.0-52.0); LYMPH # 1.1 10^3/uL (1.5-5.0); LYMPH % 14.9 % (24.0-44.0); MEAN CORPUSCULAR HEMOGLOBIN 30.4 pg (27.0-33.0); MEAN CORPUSCULAR HGB CONC 33.9 g/dl (32.0-36.5); MEAN CORPUSCULAR VOLUME 89.6 fl (80.0-96.0); MONO # 0.6 10^3/uL (0.0-0.8); MONO % 7.8 % (2.0-8.0); NEUTROPHILS # 5.2 10^3/uL (1.5-8.5); NEUTROPHILS % 73.8 % (36.0-66.0); PLATELET COUNT, AUTOMATED 160 10^3/uL (150-450); RED BLOOD COUNT 3.75 10^6/uL (4.30-6.10); WHITE BLOOD COUNT 7.1 10^3/uL (4.0-10.0)
[2020-12-15 08:00] VITALS: BP 126/70
[2020-12-15 08:01] LABS: HEMOGLOBIN 11.4 g/dl (13.5-17.5)
[2020-12-15] MEDS: DOCUSATE SODIUM 100MG CAPSULE PO SCH ×2 (08:19→20:37)
[2020-12-15] MEDS: ENOXAPARIN 40MG/0.4ML SYRINGE (J1650 PER 10MG) SC SCH (08:23)
[2020-12-15 08:28] LABS: ALT/SGPT 19 U/L (12-78); BILIRUBIN,TOTAL 0.7 MG/DL (0.2-1.0); BLOOD UREA NITROGEN 7 MG/DL (7-18); CALCIUM LEVEL 8.4 MG/DL (8.5-10.1); CARBON DIOXIDE LEVEL 24 MEQ/L (21-32); CHLORIDE LEVEL 111 MEQ/L (98-107); CREATININE FOR GFR 0.67 MG/DL (0.70-1.30); GLOMERULAR FILTRATION RATE > 60.0 (>60); GLUCOSE, FASTING 63 MG/DL (70-100); MAGNESIUM LEVEL 1.9 MG/DL (1.8-2.4); POTASSIUM SERUM 4.3 MEQ/L (3.5-5.1); SODIUM LEVEL 141 MEQ/L (136-145); TOTAL PROTEIN 5.6 GM/DL (6.4-8.2)
[2020-12-15] MEDS: PANTOPRAZOLE 40MG VIAL (C9113 PER 1) IV SCH (08:34)
[2020-12-15] MEDS ORDERED: GLUCOSE 4GM CHEW TABLET PO PRN (12:15)
[2020-12-15] MEDS ORDERED: DEXTROSE 50% 50 ML SYRINGE IV PRN (12:15)
[2020-12-15] MEDS ORDERED: GLUCAGON INJ 1MG VIAL SC PRN (12:15)
--- NOTE | 2020-12-15 13:01 | IPNPDOC ---
Text Note Date of Service The patient was seen on 12/15/20. NOTE Subjective: Patient is a 40-year-old male with a past medical history of multiple episodes of pancreatitis, pancreatic divisum, prior history of chronic pancreatitis (05/2020; s/p Creon), who presented to the emergency room with complaints of abdominal pain. Patient was admitted to the hospital service for pancreatitis. Patient was seen and examined at the bedside. Currently patient reports that his abdominal pain has had some improvement but still persists report some nausea without vomiting. Denies any chest pain, shortness breath, palpitations. Denies any urinary discomfort. Objective: Vitals (See below) General: Lying in bed, appears comfortable, AAOx3 HEENT: NC, AT CVS: RRR, +S1S2 Lungs: Fair air entry b/l, -w/r/r Abdomen: Soft, ND, epigastric tenderness Extremities: - Edema, - Calf tenderness Imaging: Gall bladder US 12/12: Negative right upper quadrant sonography. CT abdomen / pelvis 12/12: Pancreatitis and related findings as described above. Assessment and Plan: Abdominal pain - likely 2/2 acute pancreatitis - Multiple episodes of pancreatitis / Reported pancreatic divisum / Prior history of chronic pancreatitis (05/2020; s/p Creon) - Currently reports persistent abdominal pain / nausea; no vomiting - Epigastric tenderness noted again - Lipase elevated on admission / Triglyceride levels not significantly elevated - Imaging noted above - Follows with GI in [place]; Plan for endoscopic ultrasound-guided biopsy of his pancreas in [place] - c/w symptomatic control with Dilaudid and Zofran - c/w aggressive IV fluid hydration with normal saline - Will remain NPO for now Hypoglycemia - Will start gentle IV fluid hydration with D5 1/2NS GI prophylaxis / GERD - c/w Protonix IV DVT prophylaxis - c/w Lovenox Disposition: - Awaiting clinical improvement VS,Thaibone, I+O VS, Fishbone, I+O Laboratory Tests 12/15/20 07:30 Vital Signs Date Time Temp Pulse Resp B/P (MAP) Pulse Ox O2 Delivery O2 Flow Rate FiO2 12/15/20 12:07 18 12/15/20 08:00 97.9 64 126/70 (88) 12/15/20 06:00 100 Room Air I&O- Last 24 Hours up to 6 AM 12/15/20 06:00 Intake Total 4710 ml Output Total 200 ml Balance 4510 ml KENYA MCFARLAND MD Dec 15, 2020 13:01
[2020-12-15] MEDS: D5W/0.45% SODIUM CHLORIDE 1,000 ML IV SCH (13:10)
[2020-12-15 13:51] VITALS: BP 108/66
[2020-12-15 19:31] LABS: BLOOD UREA NITROGEN 6 MG/DL (7-18); CALCIUM LEVEL 8.1 MG/DL (8.5-10.1); CARBON DIOXIDE LEVEL 24 MEQ/L (21-32); CHLORIDE LEVEL 111 MEQ/L (98-107); CREATININE FOR GFR 0.67 MG/DL (0.70-1.30); GLOMERULAR FILTRATION RATE > 60.0 (>60); GLUCOSE, FASTING 85 MG/DL (70-100); MAGNESIUM LEVEL 1.9 MG/DL (1.8-2.4); POTASSIUM SERUM 4.2 MEQ/L (3.5-5.1); SODIUM LEVEL 141 MEQ/L (136-145)
[2020-12-15 22:00] VITALS: BP 123/70
[2020-12-16] MEDS: D5W/0.45% SODIUM CHLORIDE 1,000 ML IV SCH (00:13)
[2020-12-16] MEDS: NS 1,000 ML IV SCH ×2 (03:14→10:09)
[2020-12-16] MEDS: HYDROMORPHONE HCL 0.5 MG/ 0.5 ML SYRINGE (J1170 PER 1) IV PRN ×4 (04:34→21:21)
[2020-12-16 06:00] VITALS: BP 143/80
[2020-12-16 06:20] LABS: BASO % 0.6 % (0.0-1.0); EOS # 0.4 10^3/uL (0.0-0.5); EOS % 7.3 % (0.0-3.0); HEMOGLOBIN 10.6 g/dl (13.5-17.5); LYMPH # 1.2 10^3/uL (1.5-5.0); LYMPH % 24.3 % (24.0-44.0); MEAN CORPUSCULAR HEMOGLOBIN 29.9 pg (27.0-33.0); MEAN CORPUSCULAR HGB CONC 34.2 g/dl (32.0-36.5); MEAN CORPUSCULAR VOLUME 87.6 fl (80.0-96.0); MONO # 0.6 10^3/uL (0.0-0.8); NEUTROPHILS # 2.9 10^3/uL (1.5-8.5); NEUTROPHILS % 56.6 % (36.0-66.0); PLATELET COUNT, AUTOMATED 151 10^3/uL (150-450); RED BLOOD COUNT 3.54 10^6/uL (4.30-6.10); WHITE BLOOD COUNT 5.1 10^3/uL (4.0-10.0)
[2020-12-16 06:53] LABS: ALT/SGPT 16 U/L (12-78); BILIRUBIN,TOTAL 0.6 MG/DL (0.2-1.0); BLOOD UREA NITROGEN 3 MG/DL (7-18); CALCIUM LEVEL 8.2 MG/DL (8.5-10.1); CARBON DIOXIDE LEVEL 25 MEQ/L (21-32); CHLORIDE LEVEL 110 MEQ/L (98-107); CREATININE FOR GFR 0.66 MG/DL (0.70-1.30); GLOMERULAR FILTRATION RATE > 60.0 (>60); GLUCOSE, FASTING 101 MG/DL (70-100); MAGNESIUM LEVEL 1.9 MG/DL (1.8-2.4); SODIUM LEVEL 141 MEQ/L (136-145); TOTAL PROTEIN 5.6 GM/DL (6.4-8.2)
[2020-12-16] MEDS: ENOXAPARIN 40MG/0.4ML SYRINGE (J1650 PER 10MG) SC SCH (09:00)
[2020-12-16] MEDS: PANTOPRAZOLE 40MG VIAL (C9113 PER 1) IV SCH (10:09)
[2020-12-16] MEDS: DOCUSATE SODIUM 100MG CAPSULE PO SCH ×2 (10:09→19:52)
[2020-12-16 14:00] VITALS: BP 127/67
--- NOTE | 2020-12-16 14:48 | IPNPDOC ---
Text Note Date of Service The patient was seen on 12/16/20. NOTE Subjective: Patient is a 40-year-old male with a past medical history of multiple episodes of pancreatitis, pancreatic divisum, prior history of chronic pancreatitis (05/2020; s/p Creon), who presented to the emergency room with complaints of abdominal pain. Patient was admitted to the hospital service for pancreatitis. Patient was seen and examined at the bedside. Patient with reports that their abdominal pain is doing better. They deny any nausea or vomiting. Reports that they're willing to try a clear liquid diet. We will advance if tolerating. Denies any chest pain, shortness breath, palpitations. Denies any diarrhea, or urinary discomfort Objective: Vitals (See below) General: Laying in bed, appears to be comfortable without any acute distress, oriented to person, place and time HEENT: Normocephalic and atraumatic CVS: +S1S2 Lungs: Fair air entry b/l, no wheezing, rales or rhonchi Abdomen: Remains soft without any distention, mild epigastric tenderness Extremities: No edema Imaging: Gall bladder US 12/12: Negative right upper quadrant sonography. CT abdomen / pelvis 12/12: Pancreatitis and related findings as described above. Assessment and Plan: Abdominal pain - likely 2/2 acute pancreatitis - Multiple episodes of pancreatitis / Reported pancreatic divisum / Prior history of chronic pancreatitis (05/2020; s/p Creon) - Improvement in abdominal pain, resolution of nausea - Mild epigastric tenderness still noted - Lipase elevated on admission / Triglyceride levels not significantly elevated - Imaging noted above - Follows with GI in [place]; Plan for endoscopic ultrasound-guided biopsy of his pancreas in [place] - c/w symptomatic control with Dilaudid and Zofran; will stop/reduce frequency of Dilaudid and resume oral Percocet - Will DC IV fluid hydration - Will advance diet as tolerated s/p Hypoglycemia - Has remained asymptomatic - Will DC Dextrose based fluids - Diet started GI prophylaxis / GERD - c/w Protonix IV; will transition to PO DVT prophylaxis - c/w Lovenox Disposition: - Awaiting clinical improvement; Anticipate DC home tomorrow VS,Fishbone, I+O VS, Fishbone, I+O Laboratory Tests 12/15/20 18:53 12/16/20 06:07 Vital Signs Date Time Temp Pulse Resp B/P (MAP) Pulse Ox O2 Delivery O2 Flow Rate FiO2 12/16/20 13:17 18 12/16/20 06:00 98.0 61 143/80 (101) 100 Room Air I&O- Last 24 Hours up to 6 AM 12/16/20 05:59 Intake Total 2690 ml Output Total 5825 ml Balance -3135 ml KENYA MCFARLAND MD Dec 16, 2020 14:48
[2020-12-16] MEDS: NORCO, ANEXSIA 5/325MG TABLET (HYDROcodone/ACETAMINOPHEN) PO PRN (19:52)
[2020-12-16 22:00] VITALS: BP 130/85
[2020-12-17] MEDS: NORCO, ANEXSIA 5/325MG TABLET (HYDROcodone/ACETAMINOPHEN) PO PRN ×3 (04:22→10:29)
[2020-12-17] MEDS: HYDROMORPHONE HCL 0.5 MG/ 0.5 ML SYRINGE (J1170 PER 1) IV PRN (05:55)
[2020-12-17 06:00] VITALS: BP 151/82
[2020-12-17 06:18] LABS: BASO % 0.7 % (0.0-1.0); EOS # 0.3 10^3/uL (0.0-0.5); EOS % 6.7 % (0.0-3.0); HEMATOCRIT 32.6 % (42.0-52.0); LYMPH # 1.2 10^3/uL (1.5-5.0); LYMPH % 29.1 % (24.0-44.0); MEAN CORPUSCULAR HEMOGLOBIN 29.6 pg (27.0-33.0); MEAN CORPUSCULAR HGB CONC 33.7 g/dl (32.0-36.5); MEAN CORPUSCULAR VOLUME 87.9 fl (80.0-96.0); MONO # 0.5 10^3/uL (0.0-0.8); MONO % 12.3 % (2.0-8.0); NEUTROPHILS # 2.1 10^3/uL (1.5-8.5); NEUTROPHILS % 50.7 % (36.0-66.0); PLATELET COUNT, AUTOMATED 171 10^3/uL (150-450); RED BLOOD COUNT 3.71 10^6/uL (4.30-6.10); WHITE BLOOD COUNT 4.2 10^3/uL (4.0-10.0)
[2020-12-17 06:33] LABS: ALBUMIN 3.4 GM/DL (3.2-5.2); ALT/SGPT 20 U/L (12-78); BILIRUBIN,TOTAL 0.4 MG/DL (0.2-1.0); BLOOD UREA NITROGEN 2 MG/DL (7-18); CALCIUM LEVEL 8.7 MG/DL (8.5-10.1); CARBON DIOXIDE LEVEL 28 MEQ/L (21-32); CHLORIDE LEVEL 107 MEQ/L (98-107); CREATININE FOR GFR 0.72 MG/DL (0.70-1.30); GLOMERULAR FILTRATION RATE > 60.0 (>60); GLUCOSE, FASTING 102 MG/DL (70-100); MAGNESIUM LEVEL 1.9 MG/DL (1.8-2.4); POTASSIUM SERUM 3.7 MEQ/L (3.5-5.1); SODIUM LEVEL 140 MEQ/L (136-145); TOTAL PROTEIN 6.1 GM/DL (6.4-8.2)
[2020-12-17] MEDS: ENOXAPARIN 40MG/0.4ML SYRINGE (J1650 PER 10MG) SC SCH (09:00)
[2020-12-17] MEDS ORDERED: OMEPRAZOLE 20 MG CAP PO SCH (09:00)
[2020-12-17] MEDS: DOCUSATE SODIUM 100MG CAPSULE PO SCH (09:01)
--- NOTE | 2020-12-17 11:36 | DS.PDOC ---
Discharge Summary General Date of Admission Dec 14, 2020 at 15:19 Date of Discharge 12/17/2020 Discharge Summary PROCEDURES PERFORMED DURING STAY: [None]. ADMITTING DIAGNOSES / DISCHARGE DIAGNOSES: Abdominal pain - likely 2/2 acute pancreatitis s/p Hypoglycemia GI prophylaxis / GERD DVT prophylaxis COMPLICATIONS/CHIEF COMPLAINT: Abdominal pain HISTORY OF PRESENT ILLNESS: Patient is a 40-year-old male with a past medical history of multiple episodes of pancreatitis, pancreatic divisum, prior history of chronic pancreatitis (05/2020; s/p Creon), who presented to the emergency room with complaints of abdominal pain. Patient was admitted to the hospital service for pancreatitis. Patient was seen and examined at the bedside. Currently, he reports that his abdominal pain is doing significantly better. Has not expressed any nausea or vomiting. Has been tolerating his advanced diet. Has not experience any chest pain, shortness breath, palpitations. Reports regular bowel movements. Denies any urinary discomfort. HOSPITAL COURSE: Abdominal pain - likely 2/2 acute pancreatitis - Multiple episodes of pancreatitis / Reported pancreatic divisum / Prior history of chronic pancreatitis (05/2020; s/p Creon) - Patient has reported marked improvement of abdominal pain, no nausea or vom iting. Has been tolerating a diet - There is very mild epigastric tenderness on physical exam - Lipase elevated on admission / Triglyceride levels not significantly elevated - Imaging noted above - Follows with GI in [place]; Plan for endoscopic ultrasound-guided biopsy of his pancreas in [place] - c/w Percocet / Zofran on discharge; s/p Dilaudid - s/p IV fluid hydration - Will have outpatient follow-up with primary care provider and gastroenterology in [place] within the next 7 days s/p Hypoglycemia - Has remained asymptomatic - s/p Dextrose based fluids - Diet started and advanced; tolerating GI prophylaxis / GERD - c/w Omeprazole DVT prophylaxis - c/w Lovenox DISCHARGE MEDICATIONS: Please see below. ALLERGIES: Please see below. PHYSICAL EXAMINATION ON DISCHARGE: Vitals (See below) General: Patient is sitting up in bed watching television appears to be comfortable, AAO 3 HEENT: Normocephalic and atraumatic CVS: +S1S2 Lungs: Air entry appears to be fair bilaterally without any auscultated evidence of crackles, wheezing or rhonchi Abdomen: Again, his abdomen is soft without any distention and mid epigastric area does reveal some mild tenderness Extremities: Lower extremities are without any signs of edema LABORATORY DATA: Please see below. IMAGING: Gall bladder US 12/12: Negative right upper quadrant sonography. CT abdomen / pelvis 12/12: Pancreatitis and related findings as described above. ACTIVITY: [As tolerated]. DISCHARGE PLAN: Follow-up with primary care provider and gastroenterology in [place] within the next 7 days Remain compliant with treatment plan and medications Return to the ER if you experience any problems DISPOSITION: Home, Self-Care. DISCHARGE CONDITION: [Stable]. TIME SPENT ON DISCHARGE: 35 minutes. Vital Signs/I&Os Vital Signs Date Time Temp Pulse Resp B/P (MAP) Pulse Ox O2 Delivery O2 Flow Rate FiO2 12/17/20 10:29 18 Room Air 12/17/20 06:00 98.8 52 151/82 (105) 99 I&O- Last 24 Hours up to 6 AM 12/17/20 06:00 Intake Total 1610 ml Output Total 2400 ml Balance -790 ml Laboratory Data Labs 24H Laboratory Tests 2 12/17/20 05:48: Immature Granulocyte % (Auto) 0.5, Neutrophils (%) (Auto) 50.7, Lymphocytes (%) (Auto) 29.1, Monocytes (%) (Auto) 12.3H, Eosinophils (%) (Auto) 6.7H, Basophils (%) (Auto) 0.7, Neutrophils # (Auto) 2.1, Lymphocytes # (Auto) 1.2L, Monocytes # (Auto) 0.5, Eosinophils # (Auto) 0.3, Basophils # (Auto) 0.0, Nucleated Red Blood Cells % (auto) 0.0, Anion Gap 5L, Glomerular Filtration Rate > 60.0, Calcium Level 8.7, Magnesium Level 1.9, Total Bilirubin 0.4, Aspartate Amino Transf (AST/SGOT) 13, Alanine Aminotransferase (ALT/SGPT) 20, Alkaline Phosphatase 44L, Total Protein 6.1L, Albumin 3.4, Albumin/Globulin Ratio 1.3 CBC/BMP Laboratory Tests 12/17/20 05:48 Discharge Medications Scheduled Omeprazole (Omeprazole) 40 Mg Capsule.dr, 1 CAP PO DAILY Scheduled PRN Hydrocodone/Acetaminophen (Hydrocodone-Acetamin 5-325 mg) 1 Each Tablet, 1 TAB PO Q6H PRN for PAIN Ondansetron (Ondansetron Odt) 4 Mg Tab.rapdis, 4 MG PO Q6-8HP PRN for nausea/vomiting Allergies Coded Allergies: Penicillins (Verified Allergy, Unknown, HIVES, 10/28/19) KENYA MCFARLAND MD Dec 17, 2020 11:36
== END 2020-12-17 11:00 | disposition home or self-care (01) | DRG 440 ==
LOC: M ED 09:01 → M ED INP 15:19 → M MS5PR 18:10
PROVIDERS: ADMIT Internal Medicine; ATTEND Internal Medicine
DX: K85.90 Acute pancreatitis without necrosis or infection, unspecified (principal); E16.2 Hypoglycemia, unspecified; K21.9 Gastro-esophageal reflux disease without esophagitis; Z20.822 Contact with and (suspected) exposure to COVID-19; Z79.899 Other long term (current) drug therapy; Z88.0 Allergy status to penicillin

== ENCOUNTER 2021-01-02 13:02 | Inpatient (IN) | payer OTHER ==
[~2021-01-02] VITALS: Ht 170.2 cm; Wt 83.2 kg
[2021-01-02 14:06] LABS: BASO # 0.1 10^3/uL (0.0-0.2); BASO % 0.4 % (0.0-1.0); EOS # 0.2 10^3/uL (0.0-0.5); EOS % 1.5 % (0.0-3.0); HEMATOCRIT 40.3 % (42.0-52.0); HEMOGLOBIN 13.9 g/dl (13.5-17.5); LYMPH # 1.9 10^3/uL (1.5-5.0); LYMPH % 14.8 % (24.0-44.0); MEAN CORPUSCULAR HGB CONC 34.5 g/dl (32.0-36.5); MEAN CORPUSCULAR VOLUME 86.9 fl (80.0-96.0); MONO # 0.9 10^3/uL (0.0-0.8); NEUTROPHILS # 9.5 10^3/uL (1.5-8.5); NEUTROPHILS % 75.9 % (36.0-66.0); PLATELET COUNT, AUTOMATED 267 10^3/uL (150-450); RED BLOOD COUNT 4.64 10^6/uL (4.30-6.10); WHITE BLOOD COUNT 12.5 10^3/uL (4.0-10.0)
[2021-01-02 14:31] LABS: ALBUMIN 4.3 GM/DL (3.2-5.2); ALT/SGPT 37 U/L (12-78); BILIRUBIN,DIRECT 0.3 MG/DL (0.0-0.2); BLOOD UREA NITROGEN 15 MG/DL (7-18); CALCIUM LEVEL 9.8 MG/DL (8.5-10.1); CARBON DIOXIDE LEVEL 23 MEQ/L (21-32); CHLORIDE LEVEL 101 MEQ/L (98-107); CREATININE FOR GFR 0.97 MG/DL (0.70-1.30); GLOMERULAR FILTRATION RATE > 60.0 (>60); GLUCOSE, FASTING 111 MG/DL (70-100); LIPASE 1470 U/L (73-393); POTASSIUM SERUM 3.4 MEQ/L (3.5-5.1); SODIUM LEVEL 134 MEQ/L (136-145); TOTAL PROTEIN 7.6 GM/DL (6.4-8.2)
[2021-01-02] MEDS ORDERED: MORPHINE 4 MG/ML 1ML VIAL/SYRINGE (J2270) IV ONE (17:15)
[2021-01-02] MEDS ORDERED: ONDANSETRON 4MG/2ML VIAL IV ONE (17:15)
[2021-01-02] MEDS ORDERED: NS 1,000 ML IV ONE (17:15)
[2021-01-02] MEDS ORDERED: ISOVUE-370 76% 100ML VIAL As Ordered ONE (17:34)
[2021-01-02 17:42] LABS: CK-MB VALUE MASS < 1.0 NG/ML (<3.6); CPK CREATINE PHOSPHOKINASE 104 U/L (39-308); MB/CK RELATIVE INDEX 0.96 (< OR =4); TROPONIN I < 0.02 NG/ML (< 0.10)
[2021-01-02] MEDS ORDERED: KETOROLAC 30 MG/ML 1ML VIAL IV ONE (18:05)
--- NOTE | 2021-01-02 18:30 | REPVR ---
PROCEDURE INFORMATION: Exam: CT Abdomen And Pelvis With Contrast Exam date and time: 01/02/2021 6:08 PM Age: 40 years old Clinical indication: Abdominal pain; Additional info: Generalized ab pain TECHNIQUE: Imaging protocol: Computed tomography of the abdomen and pelvis with contrast. Radiation optimization: All CT scans at this facility use at least one of these dose optimization techniques: automated exposure control; mA and/or kV adjustment per patient size (includes targeted exams where dose is matched to clinical indication); or iterative reconstruction. Contrast material: ISO 370; Contrast volume: 100 ml; Contrast route: INTRAVENOUS (IV); COMPARISON: CT ABD/PEL W/IV CONTRAST ONLY 12/14/2020 12:54 PM FINDINGS: Liver: There is a diffuse decrease in hepatic parenchymal density, consistent with steatosis. 4 mm cysts right lobe of the liver. Gallbladder and bile ducts: Normal. No calcified stones. No ductal dilation. Pancreas: There is peripancreatic inflammatory stranding and fluid, consistent with acute pancreatitis. There is a 0.7 x 1.4 cm lucency in the pancreatic head which may indicate the presence of a liquefying segment of the pancreas or developing pseudocyst. No intrapancreatic gas demonstrated. Spleen: Normal. No splenomegaly. Adrenal glands: Normal. No mass. Kidneys and ureters: Normal. No hydronephrosis. Stomach and bowel: Prominent gastric rugal pattern. Findings can be seen in association with gastritis including hypertrophic gastritis. There is periduodenal fluid demonstrated in the duodenal sweep associated with thickening of the duodenal wall. Finding may be secondary to adjacent inflammatory disease in the pancreas or represent primary duodenitis. Mild diverticulosis is present in the distal colon. No diverticulitis. Appendix: No evidence of appendicitis. Intraperitoneal space: Unremarkable. No free air. No significant fluid collection. Vasculature: Unremarkable. No abdominal aortic aneurysm. Lymph nodes: Unremarkable. No enlarged lymph nodes. Urinary bladder: Unremarkable as visualized. Reproductive: Unremarkable as visualized. Bones/joints: Mild central spinal stenosis L4-L5. Soft tissues: Small left inguinal hernia without incarceration. IMPRESSION: 1. There is a diffuse decrease in hepatic parenchymal density, consistent with steatosis. 2. Prominent gastric rugal pattern. Findings can be seen in association with gastritis including hypertrophic gastritis. 3. There is peripancreatic inflammatory stranding and fluid, consistent with acute pancreatitis. There is a small lucency in the pancreatic head which may indicate the presence of a liquefying segment of the pancreas and/or developing pseudocyst. No intrapancreatic gas demonstrated. 4. There is periduodenal fluid demonstrated in the duodenal sweep associated with thickening of the duodenal wall. Finding may be secondary to adjacent inflammatory disease in the pancreas or represent primary duodenitis. 5. Mild diverticulosis is present in the distal colon. No diverticulitis. Electronically signed by: Jagdish Sherman On 01/02/2021 18:30:34 PM
[2021-01-02] MEDS ORDERED: FAMOTIDINE IV BAG 20 MG in IV 1 EA IV ONE (18:55)
[2021-01-02] MEDS ORDERED: POTASSIUM CHLORIDE 10MEQ SR TABLET PO ONE (19:50)
[2021-01-02] MEDS ORDERED: ACETAMINOPHEN TAB 650MG DOSE (2X325MG) PO PRN (19:50)
[2021-01-02] MEDS: NS 1,000 ML IV SCH (20:17)
--- NOTE | 2021-01-02 20:28 | HPEPDOC ---
General Date of Admission Jan 02, 2021 at 19:46 Date of Service: Jan 02, 2021 Attending Physician: COLIN QUINTANA DO Chief Complaint Diffuse abdominal pain and nausea Source: Patient, Old records Exam Limitations: No limitations Timing/Duration: Day(s) (1) Severity: Mild Associated Symptoms: Nausea History of Present Illness Patient is a very pleasant 40 year old male with history of pancreatic divisum and several pancreatic episode presented to [facility] ER due to diffuse abdominal pain and nausea which started yesterday. He described the abdominal pain as diffuse sharp pain, currently 8/10, radiating straight to his back with alleviating factor being pain medication and aggravating factor being oral intake. He has nausea and no vomiting or diarrhea. He ate burger with turkey and cheese yesterday. He feels warm but denies fever or chills. Home Medications Scheduled Bupropion Hcl (Bupropion Xl) 150 Mg Tab.er.24h, 150 MG PO DAILY, (Reported) Multivitamins (Thera M Plus Tablet) 1 Each Tablet, 1 TAB PO DAILY, (Reported) Omeprazole (Omeprazole) 40 Mg Capsule.dr, 40 MG PO DAILY, (Reported) Scheduled PRN Hydrocodone/Acetaminophen (Hydrocodone-Acetamin 5-325 mg) 1 Each Tablet, 1 TAB PO Q8H PRN for MODERATE/SEVERE PAIN (PS 5-10), (Reported) Ondansetron (Ondansetron Odt) 4 Mg Tab.rapdis, 4 MG PO Q6H PRN for NAUSEA OR VOMITING, (Reported) Allergies Coded Allergies: Penicillins (Verified Allergy, Unknown, HIVES, 10/28/19) Past Medical History Medical History Pancreatitic divisium, reported having upcoming upcoming endoscopic biopsy with [place] [facility] provider Dr. Becerril Multiple episodes of pancreatitis Prior history of chronic pancreatitis from 01/2020 to 05/2020, has stopped Creon Surgical History Tonsillectomy 1983 [place] tooth resection 2004 Right ankle fracture surgery 2009 Vasectomy 2018 Family History Denies family history of pancreas disease, diabetes, or hypertension Social History * Smoker: Denies Alcohol: occationally (drinks 2-4 drinks per month, last drink was in mid-November) Drugs: denies Lives with and 3 children Works in the [employer] with [employer] A-FIB/[facility] A-FIB History Current/History of A-Fib/PAF?: No Review of Systems Constitutional: Reports: Other (feels warm); Denies: Chills Eyes: Denies: Vision change ENT: Denies: Sore Throat Pulmonary: Denies: Dyspnea Cardiovascular: Denies: Chest Pain, Palpitations Gastrointestinal: Reports: Nausea, Abdominal Pain, Constipation; Denies: Vomiting, Diarrhea, Hematochezia Genitourinary: Denies: Dysuria, Hematuria Endocrine: Denies: Polydipsia Musculoskeletal: Denies: Joint Pain Neurological: Reports: Other Symptoms (denies history of alcohol withdrawl) Psych: Reports: Mood Normal; Denies: Thoughts of Self Harm, Thoughts of Harming Other Physical Examination General Exam: Positive: Alert, Cooperative, No Acute Distress Eye Exam: Positive: Conjunctiva & lids normal ENT Exam: Positive: Atraumatic, Mucous membr. moist/pink Neck Exam: Positive: Supple Chest Exam: Positive: Clear to auscultation, Normal air movement; Negative: Rales, Rhonchi, Wheezing Abdomen Exam: Positive: Normal bowel sounds, Soft, Tenderness (in all quardants), Other (no guarding) Extremity Exam: Negative: Edema, Swelling Skin Exam: Positive: Nl turgor and temperature Neuro Exam: Positive: Normal Speech, Normal Tone Psych Exam: Positive: Mental status NL, Mood NL, Memory Intact, Oriented x 3 Vital Signs Vital Signs Date Time Temp Pulse Resp B/P (MAP) Pulse Ox O2 Delivery O2 Flow Rate FiO2 01/02/21 17:33 22 01/02/21 13:18 98.0 59 164/89 (114) 100 Room Air Laboratory Data Labs 24H Laboratory Tests 2 01/02/21 13:54: Immature Granulocyte % (Auto) 0.4, Neutrophils (%) (Auto) 75.9H, Lymphocytes (%) (Auto) 14.8L, Monocytes (%) (Auto) 7.0, Eosinophils (%) (Auto) 1.5, Basophils (%) (Auto) 0.4, Neutrophils # (Auto) 9.5H, Lymphocytes # (Auto) 1.9, Monocytes # (Auto) 0.9H, Eosinophils # (Auto) 0.2, Basophils # (Auto) 0.1, Nucleated Red Blood Cells % (auto) 0.0, Anion Gap 10, Glomerular Filtration Rate > 60.0, Calcium Level 9.8, Magnesium Level 2.0, Total Bilirubin 1.0, Direct Bilirubin 0.3H, Aspartate Amino Transf (AST/SGOT) 19, Alanine Aminotransferase (ALT/SGPT) 37, Alkaline Phosphatase 61, Total Creatine Kinase 104, Creatine Kinase MB < 1.0, Creatine Kinase MB Relative Index 0.96, Troponin I < 0.02, Total Protein 7.6, Albumin 4.3, Albumin/Globulin Ratio 1.3, Lipase 1470H 01/02/21 18:12: Urine Color YELLOW, Urine Appearance CLEAR, Urine pH 6.0, Urine Specific [place] 1.019, Urine Protein NEGATIVE, Urine Glucose (UA) NEGATIVE, Urine Ketones 2+H, Urine Blood 1+H, Urine Nitrite NEGATIVE, Urine Bilirubin NEGATIVE, Urine Urobilinogen 0.2, Urine Leukocyte Esterase NEGATIVE, Urine WBC (Auto) 0, Urine RBC (Auto) 2, Urine Hyaline Casts (Auto) 0, Urine Bacteria (Auto) NEGATIVE, Urine Squamous Epithelial Cells 0, Urine Sperm (Auto) CBC/BMP Laboratory Tests 01/02/21 13:54 Assessment/Plan 1. Abdominal pain likely from acute chronic recurrent pancreatitis -diffuse abdominal pain radiating to back with nausea, worse with oral intake. Lipase 1407. CT abd/pelvis showed "There is peripancreatic inflammatory stranding and fluid, consistent with acute pancreatitis. There is a small lucency in pancreatic head which may indicate presence of a liquefying segment of pancreas and/or developing pseudocyst." If no improvement with current treatment, consider starting IV antibiotics -history of pancreatic divisum and multiple episodes of pancreatitis -on the process of getting an endoscopic procedure for pancreatitic divisium by GI provider Dr. Becerril in [place] -triglyceride level ordered -IV fluid hydration, zofran and pain control as needed. NPO except for meds for now 2. Gastritis -may also contribute to the patient's abdominal pain -CT abd/pelvis showed "prominent gastric rugal pattern. Findings can be seen in association with gastritis including hypertrophic gastritis." -hold home Omeprazole and start IV protonix 3. Hepatitic steatosis -CT abdomen/pelvis showed "There is a diffuse decrease in hepatic parenchymal density, consistent with steatosis." -consider follow up outpatient 4. Questionable duodenitits findings on CT -CT abd/pelvis showed "There is periduodenal fluid demonstrated in duodenal sweep associated with thickening of the duodenal wall. Finding may be secondary to adjacent inflammatory disease in the pancreas or represent primary duodenitis. " -may also contribute to the patient's abdominal pain -IV protonix 5. Mild colonic diverticulosis -CT abdomen/pelvis showed "mild diverticulosis present in distal colon. No diverticulitis." -consider follow up outpatient DVT prophylaxis: lovenox Plan / VTE VTE Prophylaxis Ordered?: Yes GME ATTESTATION GME ATTESTATION My faculty preceptor for this patient encounter was physically present during the encounter and was fully available. All aspects of the patient interview, examination, medical decision making process, and medical care plan development were reviewed and approved by the faculty preceptor. The faculty preceptor is aware and concurs with the plan as stated in the body of this note and will attest to such by his/her cosignature. ATTENDING NOTE I, Colin Quintana, performed a history and physical exam of the patient and discuss his/or her management with the resident. I reviewed the residents note and agree with the documented findings and plan of care. VIVEK GARCIA DO Jan 02, 2021 20:28 COLIN QUINTANA DO Jan 03, 2021 19:27
[2021-01-02 21:07] LABS: BLOOD UREA NITROGEN 11 MG/DL (7-18); CALCIUM LEVEL 8.8 MG/DL (8.5-10.1); CARBON DIOXIDE LEVEL 24 MEQ/L (21-32); CHLORIDE LEVEL 106 MEQ/L (98-107); CK-MB VALUE MASS 1.9 NG/ML (<3.6); CPK CREATINE PHOSPHOKINASE 117 U/L (39-308); GLOMERULAR FILTRATION RATE > 60.0 (>60); GLUCOSE, FASTING 110 MG/DL (70-100); MB/CK RELATIVE INDEX 1.62 (< OR =4); SODIUM LEVEL 138 MEQ/L (136-145); TRIGLYCERIDES LEVEL 258 MG/DL (<150); TROPONIN I < 0.02 NG/ML (< 0.10)
[2021-01-02 21:08] LABS: RSV AMPLIFICATION NEGATIVE (NEGATIVE)
[2021-01-02] MEDS ORDERED: OMEP-221 PO (21:20)
[2021-01-02] MEDS ORDERED: BUPR150T12 PO (21:20)
[2021-01-02] MEDS ORDERED: HYDR-4571 PO (21:20)
[2021-01-02] MEDS ORDERED: VITMTA PO (21:20)
[2021-01-02] MEDS ORDERED: ONDA4TAB6 PO (21:20)
[2021-01-02] MEDS ORDERED: HOME MED LIST COMPLETE! XX SCH (21:25)
[2021-01-02] MEDS: PANTOPRAZOLE 40MG VIAL (C9113 PER 1) IV SCH (22:01)
[2021-01-02] MEDS: MORPHINE 4 MG/ML 1ML VIAL/SYRINGE (J2270) IV PRN (22:02)
[2021-01-02 22:45] VITALS: BP 139/80
[2021-01-03] MEDS: KETOROLAC 30 MG/ML 1ML VIAL IV PRN ×4 (00:34→20:00)
[2021-01-03] MEDS: NS 1,000 ML IV SCH ×3 (00:37→09:47)
[2021-01-03] MEDS: NS 0.45% 1,000 ML IV SCH ×3 (01:56→20:49)
[2021-01-03] MEDS: MORPHINE 4 MG/ML 1ML VIAL/SYRINGE (J2270) IV PRN ×2 (02:25→06:44)
[2021-01-03] MEDS ORDERED: PERCOCET 5MG/325MG TAB PO ONE (03:10)
[2021-01-03 06:00] VITALS: BP 115/67
[2021-01-03 07:19] LABS: BASO % 0.3 % (0.0-1.0); EOS # 0.2 10^3/uL (0.0-0.5); EOS % 2.1 % (0.0-3.0); HEMATOCRIT 34.2 % (42.0-52.0); LYMPH # 1.2 10^3/uL (1.5-5.0); LYMPH % 15.4 % (24.0-44.0); MEAN CORPUSCULAR HEMOGLOBIN 29.5 pg (27.0-33.0); MEAN CORPUSCULAR HGB CONC 33.3 g/dl (32.0-36.5); MEAN CORPUSCULAR VOLUME 88.6 fl (80.0-96.0); MONO # 0.8 10^3/uL (0.0-0.8); NEUTROPHILS # 5.6 10^3/uL (1.5-8.5); NEUTROPHILS % 71.8 % (36.0-66.0); PLATELET COUNT, AUTOMATED 176 10^3/uL (150-450); RED BLOOD COUNT 3.86 10^6/uL (4.30-6.10); WHITE BLOOD COUNT 7.8 10^3/uL (4.0-10.0)
[2021-01-03 07:22] LABS: HEMOGLOBIN 11.4 g/dl (13.5-17.5)
[2021-01-03 07:43] LABS: ALT/SGPT 25 U/L (12-78); BILIRUBIN,TOTAL 0.8 MG/DL (0.2-1.0); BLOOD UREA NITROGEN 8 MG/DL (7-18); CALCIUM LEVEL 8.3 MG/DL (8.5-10.1); CARBON DIOXIDE LEVEL 24 MEQ/L (21-32); CHLORIDE LEVEL 111 MEQ/L (98-107); GLOMERULAR FILTRATION RATE > 60.0 (>60); GLUCOSE, FASTING 97 MG/DL (70-100); POTASSIUM SERUM 3.9 MEQ/L (3.5-5.1); SODIUM LEVEL 141 MEQ/L (136-145); TOTAL PROTEIN 5.8 GM/DL (6.4-8.2)
[2021-01-03] MEDS: ONDANSETRON 4MG/2ML VIAL IV PRN ×3 (07:45→21:31)
[2021-01-03] MEDS: buPROPion **XL** TABLET 150MG (WELLBUTRIN XL) PO SCH (07:49)
[2021-01-03] MEDS: MULTIVITAMINS/MINERALS THERAP 1 TAB PO SCH (07:49)
[2021-01-03] MEDS: ENOXAPARIN 40MG/0.4ML SYRINGE (J1650 PER 10MG) SC SCH (07:49)
[2021-01-03] MEDS: HYDROmorphone HCL 2 MG/ML 1ML VIAL IV PRN ×4 (11:09→21:32)
--- NOTE | 2021-01-03 13:42 | IPNPDOC ---
Date Seen The patient was seen on 01/03/21. Progress Note SUBJECTIVE: Patient was seen at bedside this morning. I was informed by RN that patient is having 10 or 10 abdominal pain. This is clearly visible on examination. Patient is grimacing and obviously uncomfortable her pain. Denies any fevers chills chest pain palpitations nausea vomiting diarrhea. He states that he has had several bouts of pancreatitis secondary to pancreatic divisum. He is currently seeing a specialist in [place] in order to rectify this hopefully surgically. OBJECTIVE PHYSICAL EXAMINATION: VITAL SIGNS: please see below General: NAD, comfortable HEENT: PERRLA, EOMI, sclerae clear Neck: supple, normal ROM, no JVD Respiratory: lungs CTAB, no wheeze, no rales, no crackles CVS: RRR, normal S1, S2, no murmurs Abdo: Abdomen is diffusely tender particularly in the left upper quadrant patient does not have signs of rigidity or guarding. No peritoneal tachycardia. Abdomen is nondistended. Extremities: no edema, pulses 2+ MSK: no joint deformities, normal ROM Neuro: no focal neuro deficits, moving all 4 extremities, CN2-12 intact. Strength 5/5 in all 4 extremities. No nystagmus. Psych: calm, cooperative, AAO x 3 LABORATORY DATA, IMAGING STUDIES, MICROBIOLOGY: Please see below. DVT prophylaxis ordered?: Yes ASSESSMENT AND PLAN: 40-year-old male with a past medical history of recurrent pancreatitis secondary to pancreatic divisum. Presented with severe diffuse abdominal pain and elevated lipase. Admitted with acute pancreatitis seen on CT imaging. PROBLEMS: Severe abdo pain 2/2 Acute pancreatitis with other findings suggestive of gastritis and duodenitis: severe diffuse abdo pain. lipase elevated. CT findings c/w pancreatitis. Having 10/10 abdo pain. Mild relief from toradol. Start dilaudid 1 mg q3h prn with continuous pulse ox. Receiving NS 250 cc/hr. Switch IV to 1/2 NS at 200 cc/hr. C/w PPI. VS, I&O, 24H, Fishbone Vital Signs/I&O Vital Signs Date Time Temp Pulse Resp B/P (MAP) Pulse Ox O2 Delivery O2 Flow Rate FiO2 01/03/21 11:19 18 99 Room Air 01/03/21 10:45 97.7 01/03/21 06:00 63 115/67 (83) I&O- Last 24 Hours up to 6 AM 01/03/21 05:59 Intake Total 1925 ml Balance 1925 ml Laboratory Data 24H LABS Laboratory Tests 2 01/02/21 13:54: Immature Granulocyte % (Auto) 0.4, Neutrophils (%) (Auto) 75.9H, Lymphocytes (%) (Auto) 14.8L, Monocytes (%) (Auto) 7.0, Eosinophils (%) (Auto) 1.5, Basophils (%) (Auto) 0.4, Neutrophils # (Auto) 9.5H, Lymphocytes # (Auto) 1.9, Monocytes # (Auto) 0.9H, Eosinophils # (Auto) 0.2, Basophils # (Auto) 0.1, Nucleated Red Blood Cells % (auto) 0.0, Anion Gap 10, Glomerular Filtration Rate > 60.0, Calcium Level 9.8, Magnesium Level 2.0, Total Bilirubin 1.0, Direct Bilirubin 0.3H, Aspartate Amino Transf (AST/SGOT) 19, Alanine Aminotransferase (ALT/SGPT) 37, Alkaline Phosphatase 61, Total Creatine Kinase 104, Creatine Kinase MB < 1.0, Creatine Kinase MB Relative Index 0.96, Troponin I < 0.02, Total Protein 7.6, Albumin 4.3, Albumin/Globulin Ratio 1.3, Lipase 1470H 01/02/21 18:12: Urine Color YELLOW, Urine Appearance CLEAR, Urine pH 6.0, Urine Specific [place] 1.019, Urine Protein NEGATIVE, Urine Glucose (UA) NEGATIVE, Urine Ketones 2+H, Urine Blood 1+H, Urine Nitrite NEGATIVE, Urine Bilirubin NEGATIVE, Urine Urobilinogen 0.2, Urine Leukocyte Esterase NEGATIVE, Urine WBC (Auto) 0, Urine RBC (Auto) 2, Urine Hyaline Casts (Auto) 0, Urine Bacteria (Auto) NEGATIVE, Urine Squamous Epithelial Cells 0, Urine Sperm (Auto) 01/02/21 20:06: Anion Gap 8, Glomerular Filtration Rate > 60.0, Calcium Level 8.8, Total Creatine Kinase 117, Creatine Kinase MB 1.9, Creatine Kinase MB Relative Index 1.62, Troponin I < 0.02, Triglycerides Level 258H 01/02/21 20:14: Coronavirus (COVID-19)(PCR) NEGATIVE, Influenza Type A (RT-PCR) NEGATIVE, Influenza Type B (RT-PCR) NEGATIVE, Respiratory Syncytial Virus (PCR) NEGATIVE 01/03/21 06:53: Immature Granulocyte % (Auto) 0.4, Neutrophils (%) (Auto) 71.8H, Lymphocytes (%) (Auto) 15.4L, Monocytes (%) (Auto) 10.0H, Eosinophils (%) (Auto) 2.1, Basophils (%) (Auto) 0.3, Neutrophils # (Auto) 5.6, Lymphocytes # (Auto) 1.2L, Monocytes # (Auto) 0.8, Eosinophils # (Auto) 0.2, Basophils # (Auto) 0.0, Nucleated Red Blood Cells % (auto) 0.0, Anion Gap 6L, Glomerular Filtration Rate > 60.0, Calcium Level 8.3L, Total Bilirubin 0.8, Aspartate Amino Transf (AST/SGOT) 13, Alanine Aminotransferase (ALT/SGPT) 25, Alkaline Phosphatase 44L, Total Protein 5.8#L, Albumin 3.0#L, Albumin/Globulin Ratio 1.1 CBC/BMP Laboratory Tests 01/02/21 13:54 01/02/21 20:06 01/03/21 06:53 MELINDA HAIRSTON MD Jan 03, 2021 13:42
[2021-01-03 14:00] VITALS: BP 128/65
[2021-01-03] MEDS: PANTOPRAZOLE 40MG VIAL (C9113 PER 1) IV SCH (20:40)
[2021-01-03 22:00] VITALS: BP 157/79
[2021-01-04] MEDS: HYDROmorphone HCL 2 MG/ML 1ML VIAL IV PRN ×3 (00:45→10:01)
[2021-01-04] MEDS: KETOROLAC 30 MG/ML 1ML VIAL IV PRN (02:41)
[2021-01-04 06:00] VITALS: BP 153/80
[2021-01-04 06:56] LABS: BASO % 0.4 % (0.0-1.0); EOS # 0.2 10^3/uL (0.0-0.5); EOS % 2.1 % (0.0-3.0); LYMPH # 1.1 10^3/uL (1.5-5.0); MEAN CORPUSCULAR HEMOGLOBIN 30.3 pg (27.0-33.0); MEAN CORPUSCULAR HGB CONC 33.3 g/dl (32.0-36.5); MEAN CORPUSCULAR VOLUME 90.9 fl (80.0-96.0); MONO # 1.1 10^3/uL (0.0-0.8); MONO % 11.3 % (2.0-8.0); NEUTROPHILS # 7.4 10^3/uL (1.5-8.5); NEUTROPHILS % 74.8 % (36.0-66.0); PLATELET COUNT, AUTOMATED 150 10^3/uL (150-450); RED BLOOD COUNT 3.63 10^6/uL (4.30-6.10); WHITE BLOOD COUNT 9.9 10^3/uL (4.0-10.0)
[2021-01-04] MEDS: NS 0.45% 1,000 ML IV SCH ×3 (07:04→20:56)
[2021-01-04 07:18] LABS: ALBUMIN 2.6 GM/DL (3.2-5.2); ALT/SGPT 21 U/L (12-78); BILIRUBIN,TOTAL 0.8 MG/DL (0.2-1.0); BLOOD UREA NITROGEN 3 MG/DL (7-18); CALCIUM LEVEL 8.5 MG/DL (8.5-10.1); CARBON DIOXIDE LEVEL 20 MEQ/L (21-32); CHLORIDE LEVEL 108 MEQ/L (98-107); CREATININE FOR GFR 0.63 MG/DL (0.70-1.30); GLOMERULAR FILTRATION RATE > 60.0 (>60); GLUCOSE, FASTING 83 MG/DL (70-100); POTASSIUM SERUM 4.1 MEQ/L (3.5-5.1); SODIUM LEVEL 138 MEQ/L (136-145); TOTAL PROTEIN 6.2 GM/DL (6.4-8.2)
[2021-01-04] MEDS: ENOXAPARIN 40MG/0.4ML SYRINGE (J1650 PER 10MG) SC SCH (09:00)
[2021-01-04] MEDS: MULTIVITAMINS/MINERALS THERAP 1 TAB PO SCH (09:59)
[2021-01-04] MEDS: buPROPion **XL** TABLET 150MG (WELLBUTRIN XL) PO SCH (09:59)
[2021-01-04] MEDS ORDERED: MOM 30ML SUSPENSION UDC PO ONE (10:20)
[2021-01-04] MEDS ORDERED: HYDROmorphone HCL 2 MG/ML 1ML VIAL IV PRN ×2 (10:20→10:25)
[2021-01-04] MEDS ORDERED: MIRALAX *UNIT DOSE* 17GM PACKET PO PRN (10:20)
[2021-01-04] MEDS ORDERED: HYDROMORPHONE HCL 0.5 MG/ 0.5 ML SYRINGE (J1170 PER 1) IV PRN (10:28)
--- NOTE | 2021-01-04 10:30 | IPNPDOC ---
Date Seen The patient was seen on 01/04/21. Progress Note SUBJECTIVE: Patient was seen at bedside this morning. Patient was on dilaudid with continuous O2 and cardiac monitoring. Desated down to 88% once, was placed on 2L O2 overnight as a precautions. This morning he is alert, oriented, and states that abdo pain has improved to 6/10. Eating clear liquid diet. OBJECTIVE PHYSICAL EXAMINATION: VITAL SIGNS: please see below General: NAD, comfortable HEENT: PERRLA, EOMI, sclerae clear Neck: supple, normal ROM, no JVD Respiratory: lungs CTAB, no wheeze, no rales, no crackles CVS: RRR, normal S1, S2, no murmurs Abdo: Abdomen is diffusely tender particularly in the left upper quadrant patient does not have signs of rigidity or guarding. No peritoneal tachycardia. Abdomen is nondistended. Extremities: no edema, pulses 2+ MSK: no joint deformities, normal ROM Neuro: no focal neuro deficits, moving all 4 extremities, CN2-12 intact. Strength 5/5 in all 4 extremities. No nystagmus. Psych: calm, cooperative, AAO x 3 LABORATORY DATA, IMAGING STUDIES, MICROBIOLOGY: Please see below. DVT prophylaxis ordered?: Yes ASSESSMENT AND PLAN: 40-year-old male with a past medical history of recurrent pancreatitis secondary to pancreatic divisum. Presented with severe diffuse abdominal pain and elevated lipase. Admitted with acute pancreatitis seen on CT imaging. PROBLEMS: Severe abdo pain 2/2 Acute pancreatitis with other findings suggestive of g astritis and duodenitis: severe diffuse abdo pain improved. lipase elevated. CT findings c/w pancreatitis. Having 10/10 abdo pain. Mild relief from toradol. Reduced dilaudid 0.5 mg q3h prn with continuous pulse ox. DC toradol. Add norco for moderate pain. DC O2. Reduced IVF 1/2 NS at 125 cc/hr. Has received 4L fluid. C/w PPI. Bowel regimen. DVT prophylaxis: Lovenox 40 mg SC daily Dispo: Pending clinical improvement. VS, I&O, 24H, Fishbone Vital Signs/I&O Vital Signs Date Time Temp Pulse Resp B/P (MAP) Pulse Ox O2 Delivery O2 Flow Rate FiO2 01/04/21 10:01 20 96 Room Air 01/04/21 06:00 97.9 72 153/80 (104) 2.0 I&O- Last 24 Hours up to 6 AM 01/04/21 06:00 Intake Total 2520 ml Output Total 2875 ml Balance -355 ml Laboratory Data 24H LABS Laboratory Tests 2 01/04/21 06:36: Immature Granulocyte % (Auto) 0.4, Neutrophils (%) (Auto) 74.8H, Lymphocytes (%) (Auto) 11.0L, Monocytes (%) (Auto) 11.3H, Eosinophils (%) (Auto) 2.1, Basophils (%) (Auto) 0.4, Neutrophils # (Auto) 7.4, Lymphocytes # (Auto) 1.1L, Monocytes # (Auto) 1.1H, Eosinophils # (Auto) 0.2, Basophils # (Auto) 0.0, Nucleated Red Blood Cells % (auto) 0.0, Anion Gap 10, Glomerular Filtration Rate > 60.0, Calcium Level 8.5, Total Bilirubin 0.8, Aspartate Amino Transf (AST/SGOT) 17, Alanine Aminotransferase (ALT/SGPT) 21, Alkaline Phosphatase 42L, Total Protein 6.2L, Albumin 2.6L, Albumin/Globulin Ratio 0.7 CBC/BMP Laboratory Tests 01/04/21 06:36 MELINDA HAIRSTON MD Jan 04, 2021 10:30
[2021-01-04 14:00] VITALS: BP 154/78
[2021-01-04] MEDS: NORCO, ANEXSIA 5/325MG TABLET (HYDROcodone/ACETAMINOPHEN) PO PRN ×2 (14:47→20:56)
[2021-01-04] MEDS: PANTOPRAZOLE 40MG VIAL (C9113 PER 1) IV SCH (20:56)
[2021-01-04 22:00] VITALS: BP 137/76
[2021-01-05] MEDS: NORCO, ANEXSIA 5/325MG TABLET (HYDROcodone/ACETAMINOPHEN) PO PRN ×2 (03:23→09:42)
[2021-01-05] MEDS: NS 0.45% 1,000 ML IV SCH ×2 (04:54→09:42)
[2021-01-05 06:00] VITALS: BP 115/68
[2021-01-05] MEDS: buPROPion **XL** TABLET 150MG (WELLBUTRIN XL) PO SCH (08:34)
[2021-01-05] MEDS: MULTIVITAMINS/MINERALS THERAP 1 TAB PO SCH (08:34)
[2021-01-05] MEDS: ENOXAPARIN 40MG/0.4ML SYRINGE (J1650 PER 10MG) SC SCH ×2 (08:35→08:38)
[2021-01-05 09:22] LABS: BASO % 0.5 % (0.0-1.0); EOS # 0.3 10^3/uL (0.0-0.5); EOS % 4.4 % (0.0-3.0); HEMATOCRIT 36.7 % (42.0-52.0); HEMOGLOBIN 12.1 g/dl (13.5-17.5); LYMPH # 1.1 10^3/uL (1.5-5.0); LYMPH % 18.7 % (24.0-44.0); MEAN CORPUSCULAR HEMOGLOBIN 29.4 pg (27.0-33.0); MEAN CORPUSCULAR VOLUME 89.3 fl (80.0-96.0); MONO # 0.5 10^3/uL (0.0-0.8); MONO % 8.6 % (2.0-8.0); NEUTROPHILS % 67.3 % (36.0-66.0); PLATELET COUNT, AUTOMATED 192 10^3/uL (150-450); RED BLOOD COUNT 4.11 10^6/uL (4.30-6.10)
[2021-01-05 09:52] LABS: ALBUMIN 3.2 GM/DL (3.2-5.2); ALT/SGPT 27 U/L (12-78); BILIRUBIN,TOTAL 0.6 MG/DL (0.2-1.0); BLOOD UREA NITROGEN 2 MG/DL (7-18); CARBON DIOXIDE LEVEL 27 MEQ/L (21-32); CHLORIDE LEVEL 109 MEQ/L (98-107); CREATININE FOR GFR 0.79 MG/DL (0.70-1.30); GLOMERULAR FILTRATION RATE > 60.0 (>60); GLUCOSE, FASTING 178 MG/DL (70-100); MAGNESIUM LEVEL 2.2 MG/DL (1.8-2.4); POTASSIUM SERUM 3.7 MEQ/L (3.5-5.1); SODIUM LEVEL 142 MEQ/L (136-145); TOTAL PROTEIN 6.5 GM/DL (6.4-8.2)
[2021-01-05] MEDS ORDERED: ACET1TAB55 PO (10:21)
[2021-01-05] MEDS ORDERED: OMEP-221 PO (10:21)
[2021-01-05] MEDS ORDERED: HYDR-4571 PO (10:21)
[2021-01-05] MEDS ORDERED: MIRA1POW3 PO (10:21)
[2021-01-05] MEDS ORDERED: ONDA4TAB6 PO (10:21)
--- NOTE | 2021-01-19 22:10 | DS.PDOC ---
Discharge Summary General Date of Admission Jan 02, 2021 at 19:46 Date of Discharge 01/05/21 Discharge Summary PROCEDURES PERFORMED DURING STAY: [None]. ADMITTING DIAGNOSES: Acute pancreatitis Gastritis Hepatic steatosis DISCHARGE DIAGNOSES: Acute pancreatitis Gastritis Hepatic steatosis COMPLICATIONS/CHIEF COMPLAINT: Acute Recurrent Pancreatitis. HISTORY OF PRESENT ILLNESS: "Patient is a very pleasant 40 year old male with history of pancreatic divisum and several pancreatic episode presented to [facility] ER due to diffuse abdominal pain and nausea which started yesterday. He described the abdominal pain as diffuse sharp pain, currently 8/10, radiating straight to his back with alleviating factor being pain medication and aggravating factor being oral intake. He has nausea and no vomiting or diarrhea. He ate burger with turkey and cheese yesterday. He feels warm but denies fever or chills." HOSPITAL COURSE: Severe abdo pain 2/2 Acute pancreatitis with other findings suggestive of gastritis and duodenitis: severe diffuse abdo pain improved. lipase elevated. CT findings c/w pancreatitis. Having 10/10 abdo pain initially. Mild relief from toradol. Patient required Dilaudid for pain control. Reduced dilaudid 0.5 mg q3h prn with continuous pulse ox. DC toradol. Add norco for moderate pain. Patient received 4 L of fluid replacement to replace intravascular fluid losses. Patient was tolerating full liquid diet and his abdominal pain had reduced to below 5 out of 10. His pain was controlled with oral [place]. He did not have any nausea vomiting diarrhea. Patient was discharged in stable condition with oral analgesic control of pain. Patient has follow-up with GI for pancreatic divisum. DISCHARGE MEDICATIONS: Please see below. ALLERGIES: Please see below. PHYSICAL EXAMINATION ON DISCHARGE: VITAL SIGNS: please see below General: NAD, comfortable HEENT: PERRLA, EOMI, sclerae clear Neck: supple, normal ROM, no JVD Respiratory: lungs CTAB, no wheeze, no rales, no crackles CVS: RRR, normal S1, S2, no murmurs Abdo: soft, no masses, no hepatosplenomegaly, BS+, no rebound tenderness Extremities: no edema, pulses 2+ MSK: no joint deformities, normal ROM Neuro: no focal neuro deficits, moving all 4 extremities, CN2-12 intact. Strength 5/5 in all 4 extremities. No nystagmus. Psych: calm, cooperative, AAO x 3 LABORATORY DATA: Please see below. IMAGING: CT Abdo pelvis with IV contrast on 01/02/2021: IMPRESSION: 1. There is a diffuse decrease in hepatic parenchymal density, consistent with steatosis. 2. Prominent gastric rugal pattern. Findings can be seen in association with gastritis including hypertrophic gastritis. 3. There is peripancreatic inflammatory stranding and fluid, consistent with acute pancreatitis. There is a small lucency in the pancreatic head which may indicate the presence of a liquefying segment of the pancreas and/or developing pseudocyst. No intrapancreatic gas demonstrated. 4. There is periduodenal fluid demonstrated in the duodenal sweep associated with thickening of the duodenal wall. Finding may be secondary to adjacent inflammatory disease in the pancreas or represent primary duodenitis. 5. Mild diverticulosis is present in the distal colon. No diverticulitis. PROGNOSIS: Good ACTIVITY: [As tolerated]. DIET: As tolerated DISCHARGE PLAN: DC home with [place] for pain control. Follow-up with GI. Continue with pantoprazole. DISPOSITION: Home, Self-Care. DISCHARGE INSTRUCTIONS: . Please follow-up with your primary care doctor within 3-5 days . Please follow-up with gastroenterology within 1-2 weeks . Please taking medications as prescribed. . If you develop bleeding, chest pain, shortness of breath, seizures, nausea, fevers, or otherwise worsening of your symptoms, please call 911 or return to the nearest emergency room DISCHARGE CONDITION: [Stable]. TIME SPENT ON DISCHARGE: 35 minutes Discharge Medications Scheduled Bupropion Hcl (Bupropion Xl) 150 Mg Tab.er.24h, 150 MG PO DAILY, (Reported) Multivitamins (Thera M Plus Tablet) 1 Each Tablet, 1 TAB PO DAILY, (Reported) Omeprazole (Omeprazole) 40 Mg Capsule.dr, 40 MG PO DAILY Scheduled PRN Acetaminophen (Acetaminophen) 325 Mg Tablet, 650 MG PO Q4HP PRN for MILD PAIN or TEMP > 101 Hydrocodone/Acetaminophen (Hydrocodone-Acetamin 5-325 mg) 1 Each Tablet, 1 TAB PO Q8H PRN for MODERATE/SEVERE PAIN (PS 5-10) Ondansetron (Ondansetron Odt) 4 Mg Tab.rapdis, 4 MG PO Q6H PRN for NAUSEA OR VOMITING Polyethylene Glycol 3350 (Miralax) 17 Gm Powd.pack, 1 PKT PO DAILYPRN PRN for CONSTIPATION Allergies Coded Allergies: Penicillins (Verified Allergy, Unknown, HIVES, 10/28/19) MELINDA HAIRSTON MD Jan 19, 2021 22:10
== END 2021-01-05 12:00 | disposition home or self-care (01) | DRG 440 ==
LOC: M ED 13:02 → M ED INP 19:46 → M MSPAV 22:45
PROVIDERS: ADMIT Internal Medicine; ATTEND Family Medicine
DX: K85.90 Acute pancreatitis without necrosis or infection, unspecified (principal); K29.60 Other gastritis without bleeding; K76.0 Fatty (change of) liver, not elsewhere classified; Z79.899 Other long term (current) drug therapy; Z88.0 Allergy status to penicillin; Z20.822 Contact with and (suspected) exposure to COVID-19; K29.80 Duodenitis without bleeding; K21.9 Gastro-esophageal reflux disease without esophagitis; E16.2 Hypoglycemia, unspecified